=== PATIENT | male | born 1950 | race Caucasian/White ===

== ENCOUNTER 2017-02-17 10:48 | Observation (INO) | payer MEDICARE, MEDICAID, SELFPAY | END 2017-02-19 09:50 | disposition home or self-care (01) | PROVIDERS: Admitting Provider Family Medicine; Visit Provider Family Medicine | DX: E86.0 Dehydration (principal); J44.9 Chronic obstructive pulmonary disease, unspecified; E87.1 Hypo-osmolality and hyponatremia; I10 Essential (primary) hypertension; K29.70 Gastritis, unspecified, without bleeding | CPT/HCPCS: 36415; 71020; 80048; 80053; 82962; 83605; 85025; 87040; G0378; J2405 ==

== ENCOUNTER 2017-02-25 03:32 | Emergency (ER) | payer MEDICARE, MEDICAID, SELFPAY | END 2017-02-25 05:58 | disposition home or self-care (01) | PROVIDERS: Emergency Provider Emergency Medicine; Visit Provider Emergency Medicine | DX: K57.92 Diverticulitis of intestine, part unspecified, without perforation or abscess without bleeding (principal); M54.5 Low back pain | CPT/HCPCS: 74176; 80053; 81001; 82150; 83690; 85025; 96365; 96367; 96375; 99284; J1956; J2405 ==

== ENCOUNTER 2017-03-21 08:16 | Day surgery (SDC) | payer MEDICARE, MEDICAID, SELFPAY ==
[2017-03-20 11:14] VITALS: BMI 33.2
[2017-03-21] VITALS (7 sets, daily range): BP systolic 107–130; BP diastolic 64–82; PULSE 82–89; RESP 16–20; TEMP 36.2–36.6; O2SAT 94–98
--- NOTE | 2017-03-21 09:11 | HMH.ANESCL ---
[facility] [place] Anesthesia Checklist - Patient Identification Patient Identification: Arm Band, Verbal (Name & ) - Structural Data Admitted From: Home Planned Operative Procedure/s: neuro stimulator Consent for Planned Operative Procedure(s) Verified: Yes Verified Documents: Surgical Consent - NPO Status Verified Time NPO: 00:00 - Additional verifications Patient : No Anesthesia Reactions: No Hx Blood Transfusions: No Blood Transfusion Reaction: No Cephalosporin Allergy: No Previous Colonoscopy: No - Cardiovascular Assessment Heart Sounds: S1 & S2 Pulse Strength: Strong Pulse Rhythm: Regular Peripheral Edema: No - Airway Assessment C-Spine Mobility Assessed: Yes TMJ Mobility Assessed: Yes Dentition: Good Dentition - Neurological Assessment Level of Consciousness: Awake, Alert, Appropriate Hx Seizures: No Numbness or tingling in extremities: No - Genitourinary Assessment Urinary Incontinence: None - Anesthesia Plan Anesthesia Risk discussed: Yes Anesthesia Plan: Verified ASA Class: II Anesthesia Type: MAC [facility] [place] Anesthesia HX I have reviewed the patient's past medical history: Yes Medical History: Reports:: Chronic Obstructive Pulmonary Disease (COPD), Hypertension Denies:: Cancer, Diabetes Mellitus Type 1, Diabetes Mellitus Type 2, MRSA, Seizures Other Medical History: Denies: Blood Transfusion Reaction Comment: back leg and foot pain Laterality Cases: Right: Arthroscopy Knee, Bilateral: Carpal Tunnel Release Amputation: No Fractures: Yes (back) Comment: discectomy, trial spinal stim. *Family Hx:: Unable to obtain, Cancer, Hypertension
--- NOTE | 2017-03-21 09:14 | P.PN_ITS ---
[facility] Anesthesia Checklist - Patient Identification Patient Identification: Arm Band, Verbal (Name & ) - Structural Data Admitted From: Home Planned Operative Procedure/s: neuro stimulator Consent for Planned Operative Procedure(s) Verified: Yes Verified Documents: Surgical Consent - NPO Status Verified Time NPO: 00:00 - Additional verifications Patient : No Anesthesia Reactions: No Hx Blood Transfusions: No Blood Transfusion Reaction: No Cephalosporin Allergy: No Previous Colonoscopy: No - Cardiovascular Assessment Heart Sounds: S1 & S2 Pulse Strength: Strong Pulse Rhythm: Regular Peripheral Edema: No - Airway Assessment C-Spine Mobility Assessed: Yes TMJ Mobility Assessed: Yes Dentition: Good Dentition - Neurological Assessment Level of Consciousness: Awake, Alert, Appropriate Hx Seizures: No Numbness or tingling in extremities: No - Genitourinary Assessment Urinary Incontinence: None - Anesthesia Plan Anesthesia Risk discussed: Yes Anesthesia Plan: Verified ASA Class: II Anesthesia Type: MAC [facility] Anesthesia HX I have reviewed the patient's past medical history: Yes Medical History: Reports:: Chronic Obstructive Pulmonary Disease (COPD), Hypertension Denies:: Cancer, Diabetes Mellitus Type 1, Diabetes Mellitus Type 2, MRSA, Seizures Other Medical History: Denies: Blood Transfusion Reaction Comment: back leg and foot pain Laterality Cases: Right: Arthroscopy Knee, Bilateral: Carpal Tunnel Release Amputation: No Fractures: Yes (back) Comment: discectomy, trial spinal stim. *Family Hx:: Unable to obtain, Cancer, Hypertension
--- NOTE | 2017-03-21 12:07 | HMH.OPNOTE ---
Date of procedure: 03/21/17 Pre-op Diagnosis:: Degenerative disc disease of lumbar spine with lumbar radiculopathy symptoms and postlaminectomy syndrome Post-op diagnosis:: same Procedure performed:: Placement spinal cord stimulator with 2 epidural leads for permanent spinal cord stimulator. Surgeon:: Silverio Hyman MD RAW SILK GRADER:: Oral Pinon Anesthesia: MAC Estimated blood loss (mL): 5 Clinical Note:: This patient is a pleasant 66-year-old white male who we have been treating for postlaminectomy syndrome lumbar spine with degenerative disc disease of lumbar spine with lumbar radiculopathy symptoms. He had a successful spinal cord stimulator trial with 80% relief of pain symptoms. He is failed all previous conservative therapy including surgery, physical therapy, injections and oral medications. Most of his pain is in his back going down both legs. He presents for permanent placement spinal cord stimulator today. I have explained the risks and benefits and answered all questions. Operative findings:: None. Patient has [employer] system Operative note:: Informed consent was obtained and the risks and benefits of the procedure was explained to the patient. Patient was placed prone on the procedure table. He was prepped and draped in sterile fashion. C-arm fluoroscopy was used to view the lumbar spine. The skin and subcu dense tissues overlying the L3-L4 and L4-L5 interspace were nested using lidocaine. I made an incision in the midline and dissected down to the lumbar paraspinous fascia. I placed a 17-gauge curved tip epidural needle and advanced into the L3-L4 interspace. Using [id number] to air and guidance needle was advanced into the epidural space. After confirmation of needle placement in the epidural space stimulating lead was inserted and advanced very easily to the T10-T11 vertebral bodies. I placed a second needle advancing into the L2-L3 space. Using [id number] to air and fluoroscopic guidance needle was advanced into the epidural space. After confirmation of needle placement in the epidural space stimulating lead was inserted and secondly was advanced very easily adjacent to the first lead at the T10-T11 vertebral bodies. These leads were tested. Patient did feel good stimulation in his back and down both legs. The leads were secured to the lumbar paraspinous fascia with an anchor device in 2-0 Prolene. I tunneled leads from the back to the generator pocket created by Dr. Mcdonald. I attached the leads to the generator. The generator was placed in the generator pocket. Both incisions were irrigated with bacitracin solution. All contacts were found to be in place. Both incisions were then closed with 2-0 Vicryl followed by 4-0 nylon. The patient placed in an abdominal binder can recovery in stable condition. The patient tolerated the procedure well with no complications. Patient was given postop antibiotics of Bactrim double strength twice a day for 7 days. Pathology: none sent Condition: stable Disposition: PACU (We will follow-up with this patient in 2 weeks.) Complications:: None Plan - Patient/Caregiver Discharge Instructions Activity: As tolerated Diet: Regular Additional Instructions: Patient may shower on Sunday. We will follow up with this patient in 2 weeks to reinterrogate the stimulator and make adjustments if needed. This is a [employer] system. - Follow Up Plan
--- NOTE | 2017-03-21 12:11 | P.OP_ITS ---
Date of procedure: 03/21/17 Pre-op Diagnosis:: Degenerative disc disease of lumbar spine with lumbar radiculopathy symptoms and postlaminectomy syndrome Post-op diagnosis:: same Procedure performed:: Placement spinal cord stimulator with 2 epidural leads for permanent spinal cord stimulator. Surgeon:: Silverio Hyman MD INPATIENT PHARMACIST:: Oral Pinon Anesthesia: MAC Estimated blood loss (mL): 5 Clinical Note:: This patient is a pleasant 66-year-old white male who we have been treating for postlaminectomy syndrome lumbar spine with degenerative disc disease of lumbar spine with lumbar radiculopathy symptoms. He had a successful spinal cord stimulator trial with 80% relief of pain symptoms. He is failed all previous conservative therapy including surgery, physical therapy, injections and oral medications. Most of his pain is in his back going down both legs. He presents for permanent placement spinal cord stimulator today. I have explained the risks and benefits and answered all questions. Operative findings:: None. Patient has [employer] system Operative note:: Informed consent was obtained and the risks and benefits of the procedure was explained to the patient. Patient was placed prone on the procedure table. He was prepped and draped in sterile fashion. C-arm fluoroscopy was used to view the lumbar spine. The skin and subcu dense tissues overlying the L3-L4 and L4- L5 interspace were nested using lidocaine. I made an incision in the midline and dissected down to the lumbar paraspinous fascia. I placed a 17-gauge curved tip epidural needle and advanced into the L3-L4 interspace. Using loss- of-resistance to air and guidance needle was advanced into the epidural space. After confirmation of needle placement in the epidural space stimulating lead was inserted and advanced very easily to the T10-T11 vertebral bodies. I placed a second needle advancing into the L2-L3 space. Using loss-of- resistance to air and fluoroscopic guidance needle was advanced into the epidural space. After confirmation of needle placement in the epidural space stimulating lead was inserted and secondly was advanced very easily adjacent to the first lead at the T10-T11 vertebral bodies. These leads were tested. Patient did feel good stimulation in his back and down both legs. The leads were secured to the lumbar paraspinous fascia with an anchor device in 2-0 Prolene. I tunneled leads from the back to the generator pocket created by Dr. Mcdonald. I attached the leads to the generator. The generator was placed in the generator pocket. Both incisions were irrigated with bacitracin solution. All contacts were found to be in place. Both incisions were then closed with 2-0 Vicryl followed by 4-0 nylon. The patient placed in an abdominal binder can recovery in stable condition. The patient tolerated the procedure well with no complications. Patient was given postop antibiotics of Bactrim double strength twice a day for 7 days. Pathology: none sent Condition: stable Disposition: PACU (We will follow-up with this patient in 2 weeks.) Complications:: None Plan - Patient/Caregiver Discharge Instructions Activity: As tolerated Diet: Regular Additional Instructions: Patient may shower on Sunday. We will follow up with this patient in 2 weeks to reinterrogate the stimulator and make adjustments if needed. This is a [employer] system. - Follow Up Plan
--- NOTE | 2017-03-21 13:16 | HMH.OPNOTE ---
Date of procedure: 03/21/17 Pre-op Diagnosis:: Post laminectomy syndrome with lumbar radiculopathy, degenerative disc disease of the lumbar spine Post-op diagnosis:: same Procedure performed:: Placement of epidural stimulator generator Surgeon:: Lamont Mcdonald MD Anesthesia: LMA Estimated blood loss (mL): 3 Clinical Note:: Not applicable Operative findings:: None Operative note:: Once adequate IV sedation was obtained via anesthesia and local anesthesia less than 1% Xylocaine with epinephrine a paraspinal incision was made by through which 2 epidural leads passed into the epidural space to the area desired by . They were then fixed the paraspinal fascia with fixation devices and 2-0 Prolene sutures.. A right flank incision was made under which made a pocket for part of the generator. The leads were passed from the paraspinal incision to the pocket incision tunneling device. Leads fixed to the generator which was placed in the pocket. Monitoring by the company revealed excellent functioning of the system. The subcutaneous tissues closed with 2-0 Vicryl sutures. Skin closed with stitches of 4-0 nylon skin glue sterile dressing and a binder applied to the wound. The patient tolerated procedure well was taken to recovery room in stable condition. Upon recovery the patient will be discharged home with follow-up in 2 weeks for suture removal. Will be contacted for redness pain drainage or any other concerns. Bactrim DS twice daily ?1 week. Pathology: none sent Condition: stable Disposition: PACU Specimens:: None Complications:: None
== END 2017-03-21 14:00 | disposition home or self-care (01) ==
LOC: OR 08:18
PROVIDERS: PCP Family Medicine; Visit Provider Anesthesiology
DX: M51.16 Intervertebral disc disorders with radiculopathy, lumbar region (principal); M96.1 Postlaminectomy syndrome, not elsewhere classified; Z45.49 Encounter for adjustment and management of other implanted nervous system device
CPT/HCPCS: 63650; 63685; 96374; C1778; C1820; J3370

== ENCOUNTER → 2017-04-02 14:34 | Outpatient (POV) | payer MEDICARE, MEDICAID, SELFPAY ==
[2017-04-02 15:01] VITALS: BP 140/80; PULSE 121; RESP 22; TEMP 36.3; O2SAT 95; BMI 33.2
--- NOTE | 2017-04-02 15:36 | P.CONS_ITS ---
[facility] Pain Management SOAP Note Subjective:: This patient is a pleasant 66-year-old white male who we are treating for postlaminectomy syndrome lumbar spine with degenerative disc disease of lumbar spine and lumbar radiculopathy symptoms. He is status post permanent placement of spinal cord stimulator with 2 epidural leads. He has a [employer] system. He did get reprogramming today. He is doing very well with continued 80-90% relief of his pain symptoms. He went more stimulation towards the left so that is why he was reprogrammed today. Overall he is doing very well. Objective:: Alert and oriented ?3 in no acute distress. Patient has an antalgic gait. His incisions are clean dry and intact and healing very well. Motor strength of the lower extremity 5/5. There is no gross sensory deficit. Assessment:: Degenerative disc disease of lumbar spine with lumbar radiculopathy symptoms and postlaminectomy syndrome. Plan:: We will follow-up with him in 1 month. We will reevaluate his symptoms at that time.
== END ==
PROVIDERS: PCP Family Medicine; Visit Provider Anesthesiology
DX: M51.16 Intervertebral disc disorders with radiculopathy, lumbar region (principal)
CPT/HCPCS: 99212

== ENCOUNTER → 2017-05-07 09:02 | Outpatient (POV) | payer MEDICARE, MEDICAID, SELFPAY ==
[2017-05-07 09:13] VITALS: BP 111/72; PULSE 52; RESP 24; O2SAT 97; BMI 32.0
--- NOTE | 2017-05-07 10:15 | HMH.PAINSOAP ---
[facility] Pain Management SOAP Note Subjective:: Patient is a pleasant 66-year-old white male who presents today for stimulator adjustment. Patient is doing very well after his implant of his [employer] stimulator. Patient states he is having 80% pain relief in both of his legs. He states that his feet do still bother him however he has just been readjusted. Patient does have restless leg syndrome which he takes Lyrica for. Patient states that it works well for him. ROS General: no recent weight change, no fever, no sleep disturbances Respiratory: no cough, no shortness of air, no recurring pulmonary infections Cardiovascular/Peripheral Vascular: No chest pain, No palpitations, no edema, no shortness of breath. Gastrointestinal: no incontinence, normal bowel movements reported Genitourinary: no incontinence Musculoskeletal: Bilateral leg and foot pain Psychiatric: normal mood/ affect, Neurological: [denies weakness in extremities], [denies balance issues] Objective:: Physical Exam General: Alert and oriented x3, no acute distress, pleasant and cooperative, [on room air] Lungs: Resps E/U, Symmetrical chest expansion, Eyes: PERRL Musculoskeletal: Flexion and extension of lumbar spine somewhat guarded secondary to pain, deep tendon reflexes normal, strength in upper and lower extremities [5/5], slightly antalgic gait noted Neurological: speech clear, mental health aides teacher equal, no gross sensory deficits Assessment:: Degenerative disc disease of the lumbar spine with lumbar radiculopathy symptoms, postlaminectomy syndrome Plan:: We will follow-up with this patient in 4 months. Patient is instructed to call us if he has any issues with his stimulator or needs reprograming. This note was dictated using voice recognition software and may contain errors or omissions
--- NOTE | 2017-05-07 10:18 | P.CONS_ITS ---
[facility] Pain Management SOAP Note Subjective:: Patient is a pleasant 66-year-old white male who presents today for stimulator adjustment. Patient is doing very well after his implant of his [employer] stimulator. Patient states he is having 80% pain relief in both of his legs. He states that his feet do still bother him however he has just been readjusted. Patient does have restless leg syndrome which he takes Lyrica for. Patient states that it works well for him. ROS General: no recent weight change, no fever, no sleep disturbances Respiratory: no cough, no shortness of air, no recurring pulmonary infections Cardiovascular/Peripheral Vascular: No chest pain, No palpitations, no edema, no shortness of breath. Gastrointestinal: no incontinence, normal bowel movements reported Genitourinary: no incontinence Musculoskeletal: Bilateral leg and foot pain Psychiatric: normal mood/ affect, Neurological: [denies weakness in extremities], [denies balance issues] Objective:: Physical Exam General: Alert and oriented x3, no acute distress, pleasant and cooperative, [ on room air] Lungs: Resps E/U, Symmetrical chest expansion, Eyes: PERRL Musculoskeletal: Flexion and extension of lumbar spine somewhat guarded secondary to pain, deep tendon reflexes normal, strength in upper and lower extremities [5/5], slightly antalgic gait noted Neurological: speech clear, web search evaluator equal, no gross sensory deficits Assessment:: Degenerative disc disease of the lumbar spine with lumbar radiculopathy symptoms , postlaminectomy syndrome Plan:: We will follow-up with this patient in 4 months. Patient is instructed to call us if he has any issues with his stimulator or needs reprograming. This note was dictated using voice recognition software and may contain errors or omissions
== END ==
PROVIDERS: PCP Family Medicine; Visit Provider Clinical Nurse Specialist Family Health
DX: M54.16 Radiculopathy, lumbar region (principal)
CPT/HCPCS: 99212

== ENCOUNTER → 2017-08-20 16:29 | Outpatient (CLI) | payer MEDICARE, MEDICAID, SELFPAY ==
--- NOTE | 2017-08-20 16:59 | CT_ITS ---
CT abdomen pelvis wo con CLINICAL INDICATION: ITS.REASON: LLQ ABDOMINAL PAIN; LEUKOCYTOSIS; MICROSCOPIC HEMATURIA ORDERING PHYSICIAN: Leo Ravi MD PATIENT AGE: 66 years COMPARISON: 02/25/2017 TECHNIQUE: Axial images obtained with sagittal and coronal reformats. All CT scans at the facility use one or more dose reduction, viz: automated exposure control; ma/kV adjustment per patient size (including targeted exams where dose is matched to indication; i.e. head); or iterative reconstruction technique. PROCEDURE: Oral Contrast: None IV Contrast: None . FINDINGS: Atelectatic or fibrotic changes are present in the lung bases. There are coronary artery calcifications noted. No focal liver lesion is evident. There is coarse calcification of the fundus and the upper aspect of the gallbladder consistent with porcelain gallbladder. Small hiatal hernia. The spleen and adrenal glands and pancreas have an unremarkable unenhanced CT appearance. No renal or ureteral calculus or hydronephrosis is evident. Mild prominence of the left renal pelvis versus parapelvic renal cyst similar to the previous exam. There is mild stranding of the perinephric renal fat bilaterally which is nonspecific. Unremarkable appendix. Diverticulosis of the transverse, descending, and sigmoid colon. There is focal thickening of the distal descending colon in the left lower quadrant with moderate stranding of the pericolic fat system with diverticulitis. There is a hyperdense diverticulum at this region felt to represent the inflamed diverticulum. No abscess or focal perforation evident. The prostate is slightly prominent with some central calcification. There are degenerative changes in the lumbar spine and hips. There has been prior vertebroplasty at T12. IMPRESSION: 1. Colonic diverticulosis with acute diverticulitis of the distal descending colon. No evidence of abscess or perforation. 2. Porcelain gallbladder.
== END ==
PROVIDERS: PCP Family Medicine; Visit Provider Family Medicine
DX: R10.32 Left lower quadrant pain (principal); D72.829 Elevated white blood cell count, unspecified; R31.29 Other microscopic hematuria
CPT/HCPCS: 74176

== ENCOUNTER → 2017-09-11 10:24 | Outpatient (POV) | payer MEDICARE, MEDICAID, SELFPAY ==
[2017-09-11 10:32] VITALS: BP 108/68; PULSE 85; RESP 18; O2SAT 98; BMI 30.8
--- NOTE | 2017-09-11 10:41 | HMH.PAINSOAP ---
[facility] Pain Management SOAP Note Subjective:: Patient is a pleasant 66-year-old white male who presents today for follow-up. Patient has a [employer] stimulator. Patient rates that he is having good pain relief in both of his legs however he is not getting any pain relief in his feet. Patient states that he has been reprogrammed by the rep 5 times and has not been able to get adequate relief. Patient's been trying Lyrica and gabapentin without any relief as well. Patient states his feet are tingling and burning at all times that it is worse at night. Patient states that during his stimulator trial he had great relief of his foot pain. Patient was told by the [facility] he should have an x-ray to check lead placement. Patient rates his pain as 7 out of 10 in his feet today. ROS General: no recent weight change, no fever, no sleep disturbances Respiratory: no cough, no shortness of air, no recurring pulmonary infections Cardiovascular/Peripheral Vascular: No chest pain, No palpitations, no edema, no shortness of breath. Gastrointestinal: no incontinence, normal bowel movements reported Genitourinary: no incontinence Musculoskeletal: Foot pain Psychiatric: normal mood/ affect Neurological: [denies weakness in extremities], [denies balance issues] Objective:: Physical Exam General: Alert and oriented x3, no acute distress, pleasant and cooperative, [on room air] Lungs: Resps E/U, Symmetrical chest expansion, Eyes: PERRL Musculoskeletal: deep tendon reflexes normal, strength in upper and lower extremities [5/5], slightly antalgic gait noted Neurological: speech clear, hydrogen operator equal, no gross sensory deficits Assessment:: Degenerative disc disease of the lumbar spine with lumbar radiculopathy symptoms, postlaminectomy syndrome Plan:: We will get an x-ray of the thoracic spine to check lead placement. We will call in a compounding cream for his foot pain. We will follow-up with him at the end of this week. This note was dictated using voice recognition software and may contain errors or omissions
--- NOTE | 2017-09-11 10:45 | XR_ITS ---
EXAM: XR thoracic spine 3V HISTORY: ITS.REASON: VERIFY STIM LEAD PLACEMENT,WORSENING BACK PAIN Comparison: None FINDINGS: Epidural stimulator leads are present with the tip at the T10-T11 level. Wedge compression changes are present at T12 status post prior vertebroplasty. Multilevel degenerative changes are present in the thoracic spine with osteophytosis anteriorly. No acute fracture or dislocation. IMPRESSION: Epidural stimulator leads at the T10-T11 level No change prior vertebroplasty at T12 with stable compression changes at T12
--- NOTE | 2017-09-11 10:46 | P.CONS_ITS ---
[facility] Pain Management SOAP Note Subjective:: Patient is a pleasant 66-year-old white male who presents today for follow-up. Patient has a [employer] stimulator. Patient rates that he is having good pain relief in both of his legs however he is not getting any pain relief in his feet. Patient states that he has been reprogrammed by the rep 5 times and has not been able to get adequate relief. Patient's been trying Lyrica and gabapentin without any relief as well. Patient states his feet are tingling and burning at all times that it is worse at night. Patient states that during his stimulator trial he had great relief of his foot pain. Patient was told by the [facility] he should have an x-ray to check lead placement. Patient rates his pain as 7 out of 10 in his feet today. ROS General: no recent weight change, no fever, no sleep disturbances Respiratory: no cough, no shortness of air, no recurring pulmonary infections Cardiovascular/Peripheral Vascular: No chest pain, No palpitations, no edema, no shortness of breath. Gastrointestinal: no incontinence, normal bowel movements reported Genitourinary: no incontinence Musculoskeletal: Foot pain Psychiatric: normal mood/ affect Neurological: [denies weakness in extremities], [denies balance issues] Objective:: Physical Exam General: Alert and oriented x3, no acute distress, pleasant and cooperative, [ on room air] Lungs: Resps E/U, Symmetrical chest expansion, Eyes: PERRL Musculoskeletal: deep tendon reflexes normal, strength in upper and lower extremities [5/5], slightly antalgic gait noted Neurological: speech clear, kiln fireman equal, no gross sensory deficits Assessment:: Degenerative disc disease of the lumbar spine with lumbar radiculopathy symptoms , postlaminectomy syndrome Plan:: We will get an x-ray of the thoracic spine to check lead placement. We will call in a compounding cream for his foot pain. We will follow-up with him at the end of this week. This note was dictated using voice recognition software and may contain errors or omissions
== END ==
PROVIDERS: PCP Family Medicine; Visit Provider Clinical Nurse Specialist Family Health
DX: M54.16 Radiculopathy, lumbar region (principal)
CPT/HCPCS: 72072; 99212

== ENCOUNTER → 2017-09-14 14:19 | Outpatient (POV) | payer MEDICARE, MEDICAID, SELFPAY ==
[2017-09-14 14:57] VITALS: BP 137/75; PULSE 68; RESP 18; TEMP 36.8; O2SAT 97; BMI 30.8
--- NOTE | 2017-09-14 15:21 | HMH.PAINSOAP ---
[facility] Pain Management SOAP Note Subjective:: This patient is a pleasant 66-year-old white male who we are seeing for low back pain with bilateral leg pain and bilateral foot pain. He does have a [employer] spinal cord stimulator in place. He has been prepped several times by the business services representative with good relief of his back and leg pain however he does not have much relief of his foot pain. He does get significant burning in both feet. He is being reprogrammed today to see if this will get down to his feet to give him some benefit. He will be given several programs today. Other than this he is doing very well. Objective:: Alert and oriented x3 no acute distress. Patient does have an antalgic gait. Motor strength of the lower extremities is 5/5. There is no gross sensory deficit. Assessment:: Degenerative disc disease of lumbar spine with lumbar radiculopathy symptoms. Plan:: We did review his x-ray and the leads seem to be in same position. We will follow-up with him in 1 week to see if he gets any benefit from the reprogramming. If he does not get any benefit he may be a candidate for dorsal root ganglion stimulation of L5 bilaterally to capture bilateral foot pain.
== END ==
PROVIDERS: PCP Family Medicine; Visit Provider Anesthesiology
DX: M54.16 Radiculopathy, lumbar region (principal)
CPT/HCPCS: 99212

== ENCOUNTER → 2017-09-24 08:49 | Outpatient (POV) | payer MEDICARE, MEDICAID, SELFPAY ==
[2017-09-24 09:20] VITALS: BP 122/86; PULSE 72; RESP 18; O2SAT 98; BMI 32.0
--- NOTE | 2017-09-24 09:53 | HMH.PAINSOAP ---
[facility] Pain Management SOAP Note Subjective:: Patient is a pleasant 66-year-old white male who presents today for follow-up. Patient has a [employer] spinal cord stimulator in place and this takes care of by his bilateral leg pain. Patient has been reprogrammed several times with no success in getting sensation to his feet. At his last visit Dr. Hyman and him had reviewed his x-ray to ensure the leads were in the right place. They also discussed potential DRG stimulation. Patient would like to move forward with this. Patient does not tolerate medications well. Patient's tried and failed other therapies including stretching, anti-inflammatories, medications. Patient describes the pain as burning and numbness from his ankle down bilaterally ROS General: no recent weight change, no fever, no sleep disturbances Respiratory: no cough, no shortness of air, no recurring pulmonary infections Cardiovascular/Peripheral Vascular: No chest pain, No palpitations, no edema, no shortness of breath. Gastrointestinal: no incontinence, normal bowel movements reported Genitourinary: no incontinence Musculoskeletal: Bilateral foot pain Psychiatric: normal mood/ affect Neurological: [denies weakness in extremities], [denies balance issues] Objective:: Physical Exam General: Alert and oriented x3, no acute distress, pleasant and cooperative, [on room air] Lungs: Resps E/U, Symmetrical chest expansion, Eyes: PERRL Musculoskeletal: Range of motion bilateral feet somewhat guarded secondary to pain, deep tendon reflexes normal, strength in upper and lower extremities [5/5], [abnormal gait noted] Neurological: speech clear, tamale maker equal, no gross sensory deficits Assessment:: Degenerative disc disease of the lumbar spine with lumbar radiculopathy symptoms and neuropathy Plan:: We will schedule a DRG bilateral placement at L4-L5. I believe that this would be beneficial given the patient's intolerance to medication. Patient's tried and failed multiple therapies. Patient does have good relief with his [employer] stimulator of bilateral leg pain. This note was dictated using voice recognition software and may contain errors or omissions
--- NOTE | 2017-09-24 09:56 | P.CONS_ITS ---
[facility] Pain Management SOAP Note Subjective:: Patient is a pleasant 66-year-old white male who presents today for follow-up. Patient has a [employer] spinal cord stimulator in place and this takes care of by his bilateral leg pain. Patient has been reprogrammed several times with no success in getting sensation to his feet. At his last visit Dr. Hyman and him had reviewed his x-ray to ensure the leads were in the right place. They also discussed potential DRG stimulation. Patient would like to move forward with this. Patient does not tolerate medications well. Patient's tried and failed other therapies including stretching, anti-inflammatories, medications. Patient describes the pain as burning and numbness from his ankle down bilaterally ROS General: no recent weight change, no fever, no sleep disturbances Respiratory: no cough, no shortness of air, no recurring pulmonary infections Cardiovascular/Peripheral Vascular: No chest pain, No palpitations, no edema, no shortness of breath. Gastrointestinal: no incontinence, normal bowel movements reported Genitourinary: no incontinence Musculoskeletal: Bilateral foot pain Psychiatric: normal mood/ affect Neurological: [denies weakness in extremities], [denies balance issues] Objective:: Physical Exam General: Alert and oriented x3, no acute distress, pleasant and cooperative, [ on room air] Lungs: Resps E/U, Symmetrical chest expansion, Eyes: PERRL Musculoskeletal: Range of motion bilateral feet somewhat guarded secondary to pain, deep tendon reflexes normal, strength in upper and lower extremities [5/5] , [abnormal gait noted] Neurological: speech clear, carton waxing machine operator equal, no gross sensory deficits Assessment:: Degenerative disc disease of the lumbar spine with lumbar radiculopathy symptoms and neuropathy Plan:: We will schedule a DRG bilateral placement at L4-L5. I believe that this would be beneficial given the patient's intolerance to medication. Patient's tried and failed multiple therapies. Patient does have good relief with his [employer] stimulator of bilateral leg pain. This note was dictated using voice recognition software and may contain errors or omissions
== END ==
PROVIDERS: PCP Family Medicine; Visit Provider Clinical Nurse Specialist Family Health
DX: M54.16 Radiculopathy, lumbar region (principal)
CPT/HCPCS: 99212

== ENCOUNTER → 2017-12-04 08:43 | Outpatient (POV) | payer MEDICARE, MEDICAID, SELFPAY ==
[2017-12-04 09:06] VITALS: BP 104/77; PULSE 81; RESP 18; O2SAT 94; BMI 30.8
--- NOTE | 2017-12-04 09:27 | HMH.PAINSOAP ---
[facility] Pain Management SOAP Note Subjective:: Patient is a pleasant 67-year-old white male who presents today for follow-up after implantation of DRG. Patient was reprogramed and doing well. Rates his pain a 5 out of 10 today. Patient's incisions look healed and are dry and intact. No sign symptoms of infection. Patient is still learning to use his sas programmer. ROS General: no recent weight change, no fever, no sleep disturbances Respiratory: no cough, no shortness of air, no recurring pulmonary infections Cardiovascular/Peripheral Vascular: No chest pain, No palpitations, no edema, no shortness of breath. Gastrointestinal: no incontinence, normal bowel movements reported Genitourinary: no incontinence Musculoskeletal: Foot pain Psychiatric: normal mood/ affect Neurological: [denies weakness in extremities], [denies balance issues] Objective:: Physical Exam General: Alert and oriented x3, no acute distress, pleasant and cooperative, [on room air] Lungs: Resps E/U, Symmetrical chest expansion, Eyes: PERRL Musculoskeletal: Flexion and extension of lumbar spine somewhat guarded secondary to pain, deep tendon reflexes normal, strength in upper and lower extremities [5/5], [abnormal gait noted] Neurological: speech clear, idea worker equal, no gross sensory deficits Assessment:: Degenerative disease lumbar spine with postlaminectomy syndrome and complex regional pain syndrome with bilateral foot pain Plan:: We will see the patient back in 3 weeks. Patient's been instructed to contact us if he has any issues prior to his next appointment. This note was dictated using voice recognition software and may contain errors or omissions
--- NOTE | 2017-12-04 09:30 | P.CONS_ITS ---
[facility] Pain Management SOAP Note Subjective:: Patient is a pleasant 67-year-old white male who presents today for follow-up after implantation of DRG. Patient was reprogramed and doing well. Rates his pain a 5 out of 10 today. Patient's incisions look healed and are dry and intact. No sign symptoms of infection. Patient is still learning to use his programmer or analyst. ROS General: no recent weight change, no fever, no sleep disturbances Respiratory: no cough, no shortness of air, no recurring pulmonary infections Cardiovascular/Peripheral Vascular: No chest pain, No palpitations, no edema, no shortness of breath. Gastrointestinal: no incontinence, normal bowel movements reported Genitourinary: no incontinence Musculoskeletal: Foot pain Psychiatric: normal mood/ affect Neurological: [denies weakness in extremities], [denies balance issues] Objective:: Physical Exam General: Alert and oriented x3, no acute distress, pleasant and cooperative, [on room air] Lungs: Resps E/U, Symmetrical chest expansion, Eyes: PERRL Musculoskeletal: Flexion and extension of lumbar spine somewhat guarded seconda ry to pain, deep tendon reflexes normal, strength in upper and lower extremities [5/5], [abnormal gait noted] Neurological: speech clear, senior electrical designer equal, no gross sensory deficits Assessment:: Degenerative disease lumbar spine with postlaminectomy syndrome and complex regional pain syndrome with bilateral foot pain Plan:: We will see the patient back in 3 weeks. Patient's been instructed to contact us if he has any issues prior to his next appointment. This note was dictated using voice recognition software and may contain errors or omissions
== END ==
PROVIDERS: PCP Family Medicine; Visit Provider Clinical Nurse Specialist Family Health
DX: M51.36 Other intervertebral disc degeneration, lumbar region (principal); M96.1 Postlaminectomy syndrome, not elsewhere classified
CPT/HCPCS: 99213

== ENCOUNTER → 2017-12-24 10:58 | Outpatient (POV) | payer MEDICARE, MEDICAID, SELFPAY ==
--- NOTE | 2017-12-24 11:32 | P.CONS_ITS ---
[facility] Pain Management SOAP Note Subjective:: Is an extremely pleasant 67-year-old white male who presents today for follow- up. Patient has both a spinal cord stimulator and a DRG stimulator. Patient states that he is still having a lot of pain in his feet at nighttime. He rates his pain a 3 out of 10 today. Patient states that at night his feet begin to burn. Patient has been on Lyrica however he is only been taking it at nighttime. I encouraged him to take it 3 times a day as prescribed. Patient is going to try this. ROS General: no recent weight change, no fever, no sleep disturbances Respiratory: no cough, no shortness of air, no recurring pulmonary infections Cardiovascular/Peripheral Vascular: No chest pain, No palpitations, no edema, no shortness of breath. Gastrointestinal: no incontinence, normal bowel movements reported Genitourinary: no incontinence Musculoskeletal: Foot pain Psychiatric: normal mood/ affect Neurological: [denies weakness in extremities], [denies balance issues] Objective:: Physical Exam General: Alert and oriented x3, no acute distress, pleasant and cooperative, [on room air] Lungs: Resps E/U, Symmetrical chest expansion, Eyes: PERRL Musculoskeletal: Flexion and extension of lumbar spine somewhat guarded secondary to pain, deep tendon reflexes normal, strength in upper and lower extremities [5/5], slightly antalgic gait noted Neurological: speech clear, 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 We may determine that he needs a lumbar epidural in the future. I will follow-up with him after his reprogramming and that he has been on his Lyrica 3 times a day for several weeks. Patient's been instructed to call the office if he has any issues prior to his next appointment. This note was dictated using voice recognition software and may contain errors or omissions
[2017-12-24 11:37] VITALS: BP 115/70; PULSE 67; RESP 18; O2SAT 98; BMI 30.8
== END ==
PROVIDERS: PCP Family Medicine; Visit Provider Clinical Nurse Specialist Family Health
DX: M96.1 Postlaminectomy syndrome, not elsewhere classified (principal); M51.36 Other intervertebral disc degeneration, lumbar region
CPT/HCPCS: 99213

== ENCOUNTER → 2018-06-17 14:39 | Outpatient (POV) | payer MEDICARE, MEDICAID, SELFPAY ==
--- NOTE | 2018-06-17 | XR_ITS ---
EXAM: XR lumbar spine 2-3V HISTORY: Neurostimulator placement ORDERING PHYSICIAN: Jackie Denney PATIENT AGE: 67 years COMPARISON: None FINDINGS: AP and lateral views of the lumbar spine demonstrates an epidural neurostimulator device. There are 2 leads.. One lead enters the epidural space at the L2-L3 level and one at the L1-L2 level. The superior tip of the leads is at the T10-T11 level Wedge compression changes with prior kyphoplasty noted at T12. An additional neurostimulator device is now present with 2 leads extending to the sacral area at the S2-S3 level. These lesions do not extend to the presacral but overlying the S2 vertebral body. There is multilevel degenerative disc disease from T10 to S1 with mild chronic wedging of T12-L1 and L2. Prominent anterior osteophytes are present in the lumbar spine as well. Facet arthritic changes are present at L4-L5 and S1. There is vascular calcification also noted. IMPRESSION: 1. Interval insertion of sacral neurostimulator device at the S2 level. 2. Lower thoracic spine epidural device also once again noted.
[2018-06-17 15:04] VITALS: BP 117/73; PULSE 73; RESP 18; O2SAT 98; BMI 32.0
--- NOTE | 2018-06-18 08:54 | HMH.PAINSOAP ---
[facility] Pain Management SOAP Note Subjective:: Patient is a pleasant 67-year-old white male who presents today for follow-up. Patient had his a DRG stimulator and he is not getting much relief from it. He rates his pain a 6 out of 10 in his bilateral feet. After placement he was rating his pain a 3 out of 10. Patient and I had a discussion in regards to moving forward. Some x-rays were taken his stimulation is off due to the placement of the DRG leads. We will schedule him to have these repositioned. ROS General: no recent weight change, no fever, no sleep disturbances Respiratory: no cough, no shortness of air, no recurring pulmonary infections Cardiovascular/Peripheral Vascular: No chest pain, No palpitations, no edema, no shortness of breath. Gastrointestinal: no incontinence, normal bowel movements reported Genitourinary: no incontinence Musculoskeletal: Bilateral foot pain Psychiatric: normal mood/ affect Neurological: [denies weakness in extremities], [denies balance issues] Objective:: Physical Exam General: Alert and oriented x3, no acute distress, pleasant and cooperative, [on room air] Lungs: Resps E/U, Symmetrical chest expansion, Eyes: PERRL Musculoskeletal: Flexion and extension of lumbar spine somewhat guarded secondary to pain, deep tendon reflexes normal, strength in upper and lower extremities [5/5], [abnormal gait noted] Neurological: speech clear, roof bolter helper equal, no gross sensory deficits Assessment:: Degenerative disc disease lumbar spine with post laminectomy syndrome and complex regional pain syndrome bilateral feet Plan:: We will get the patient set up for repositioning of the DRG leads. Dr. Hyman has reviewed this note and agrees with this plan of care. This note was dictated using voice recognition software and may contain errors or omissions
--- NOTE | 2018-06-18 08:57 | P.CONS_ITS ---
[facility] Pain Management SOAP Note Subjective:: Patient is a pleasant 67-year-old white male who presents today for follow-up. Patient had his a DRG stimulator and he is not getting much relief from it. He rates his pain a 6 out of 10 in his bilateral feet. After placement he was rating his pain a 3 out of 10. Patient and I had a discussion in regards to moving forward. Some x-rays were taken his stimulation is off due to the placement of the DRG leads. We will schedule him to have these repositioned. ROS General: no recent weight change, no fever, no sleep disturbances Respiratory: no cough, no shortness of air, no recurring pulmonary infections Cardiovascular/Peripheral Vascular: No chest pain, No palpitations, no edema, no shortness of breath. Gastrointestinal: no incontinence, normal bowel movements reported Genitourinary: no incontinence Musculoskeletal: Bilateral foot pain Psychiatric: normal mood/ affect Neurological: [denies weakness in extremities], [denies balance issues] Objective:: Physical Exam General: Alert and oriented x3, no acute distress, pleasant and cooperative, [on room air] Lungs: Resps E/U, Symmetrical chest expansion, Eyes: PERRL Musculoskeletal: Flexion and extension of lumbar spine somewhat guarded secondary to pain, deep tendon reflexes normal, strength in upper and lower extremities [5/5], [abnormal gait noted] Neurological: speech clear, plastics plater equal, no gross sensory deficits Assessment:: Degenerative disc disease lumbar spine with post laminectomy syndrome and complex regional pain syndrome bilateral feet Plan:: We will get the patient set up for repositioning of the DRG leads. Dr. Hyman has reviewed this note and agrees with this plan of care. This note was dictated using voice recognition software and may contain errors or omissions
== END ==
PROVIDERS: PCP Family Medicine; Visit Provider Clinical Nurse Specialist Family Health
DX: M51.36 Other intervertebral disc degeneration, lumbar region (principal); M96.1 Postlaminectomy syndrome, not elsewhere classified; Z96.89 Presence of other specified functional implants
CPT/HCPCS: 72100; 99212

== ENCOUNTER → 2018-08-16 16:17 | Outpatient (CLI) | payer MEDICARE, MEDICAID, SELFPAY ==
[2018-08-16 16:39] LABS: Basophils % 0.5 % (0.1-2.0); Eosinophils # 0.3 K/mm3 (0.0-0.4); Hematocrit 41.4 % (42.0-52.0); Hemoglobin 13.9 g/dL (14.1-18.0); Lymphocytes # 1.6 K/mm3 (0.7-4.5); Lymphocytes % 17.6 % (10-50); Mean Corpuscular HGB Conc 33.6 g/dL (31.8-35.4); Mean Corpuscular Hemoglobin 30.3 pg (27.0-31.2); Mean Corpuscular Volume 90.1 fl (80-94); Mean Platelet Volume 7.5 fl (7.4-10.4); Monocytes # 0.6 K/mm3 (0.1-1.0); Monocytes % 6.6 % (1.7-9.3); Neutrophils # 6.8 K/mm3 (1.8-7.8); Neutrophils % 72.4 % (37.0-80.0); Platelet Count 229 K/mm3 (142-424); Red Cell Distribution Width 13.8 % (11.5-17.5); White Blood Count 9.3 K/mm3 (4.8-10.8)
[2018-08-16 17:25] LABS: Anion Gap 13.5 mEq/L (5-15); Blood Urea Nitrogen 26 mg/dL (7-18); Calcium 8.7 mg/dL (8.5-10.1); Carbon Dioxide 24 mmol/L (21.0-32.0); Chloride 105 mmol/L (98-107); Creatinine,Serum 1.19 mg/dL (0.70-1.30); Estimated Glomerular Filt Rate 61 ml/min (>60); GFR (African American) 73 ML/MIN (>60); Glucose 95 mg/dL (74-106); Potassium 4.5 mmoL/L (3.5-5.1); Sodium 138 mmol/L (136-145)
== END ==
PROVIDERS: Visit Provider Anesthesiology
DX: Z01.818 Encounter for other preprocedural examination (principal)
CPT/HCPCS: 36415; 80048; 85025

== ENCOUNTER → 2018-08-27 14:00 | Outpatient (POV) | payer MEDICARE, MEDICAID, SELFPAY ==
--- NOTE | 2018-08-27 14:47 | HMH.PAINSOAP ---
[facility] Pain Management SOAP Note Subjective:: Patient is a pleasant 67-year-old white male who presents today for follow-up after intrathecal pain pump placement. Patient rates his pain while sitting a 4 out of 10, and a 6 out of 10 with standing, and bilateral foot pain. His pain is located in his lower back. The patient does report that he is having some difficulty with urination since intrathecal pump insertion. He says this is something new for him. He denies any other side effects to the medication. ROS General: no recent weight change, no fever, no sleep disturbances Respiratory: no cough, no shortness of air, no recurring pulmonary infections Cardiovascular/Peripheral Vascular: No chest pain, No palpitations, no edema, no shortness of breath. Gastrointestinal: no incontinence, normal bowel movements reported Genitourinary: no incontinence Musculoskeletal: [Back pain] Psychiatric: normal mood/ affect, [denies depression], [denies anxiety] Neurological: [denies weakness in extremities], [denies balance issues] Objective:: Physical Exam General: Alert and oriented x3, no acute distress, pleasant and cooperative, [on room air] Lungs: Resps E/U, Symmetrical chest expansion, Eyes: PERRL Musculoskeletal: Flexion and extension of [lumbar] spine somewhat guarded secondary to pain, deep tendon reflexes normal, strength in upper and lower extremities [5/5], normal gait noted Neurological: speech clear, customer experience manager equal, no gross sensory deficits Assessment:: Post laminectomy syndrome of lumbar spine with degenerative disc disease of lumbar spine with lumbar radiculopathy symptoms and bilateral foot pain Plan:: Wound VAC was removed from incision. Incision well approximated, no redness, no drainage, or infection noted at site. We will start the patient on Flomax 0.4 mg p.o. daily. We will see the patient back in the office in 1 week and reassess his symptoms at that time. He has been instructed to call the office if he has any issues prior to that appointment. Dr. Hyman has reviewed this note and agrees with this plan of care. This note was dictated using voice recognition software and may contain errors or omissions
[2018-08-27 14:49] VITALS: BP 135/84; PULSE 63; RESP 18; O2SAT 95; BMI 32.0
--- NOTE | 2018-08-27 14:51 | P.CONS_ITS ---
[facility] Pain Management SOAP Note Subjective:: Patient is a pleasant 67-year-old white male who presents today for follow-up after intrathecal pain pump placement. Patient rates his pain while sitting a 4 out of 10, and a 6 out of 10 with standing, and bilateral foot pain. His pain is located in his lower back. The patient does report that he is having some difficulty with urination since intrathecal pump insertion. He says this is something new for him. He denies any other side effects to the medication. ROS General: no recent weight change, no fever, no sleep disturbances Respiratory: no cough, no shortness of air, no recurring pulmonary infections Cardiovascular/Peripheral Vascular: No chest pain, No palpitations, no edema, no shortness of breath. Gastrointestinal: no incontinence, normal bowel movements reported Genitourinary: no incontinence Musculoskeletal: [Back pain] Psychiatric: normal mood/ affect, [denies depression], [denies anxiety] Neurological: [denies weakness in extremities], [denies balance issues] Objective:: Physical Exam General: Alert and oriented x3, no acute distress, pleasant and cooperative, [on room air] Lungs: Resps E/U, Symmetrical chest expansion, Eyes: PERRL Musculoskeletal: Flexion and extension of [lumbar] spine somewhat guarded secondary to pain, deep tendon reflexes normal, strength in upper and lower extremities [5/5], normal gait noted Neurological: speech clear, reject opener and filler equal, no gross sensory deficits Assessment:: Post laminectomy syndrome of lumbar spine with degenerative disc disease of lumbar spine with lumbar radiculopathy symptoms and bilateral foot pain Plan:: Wound VAC was removed from incision. Incision well approximated, no redness, no drainage, or infection noted at site. We will start the patient on Flomax 0.4 mg p.o. daily. We will see the patient back in the office in 1 week and reassess his symptoms at that time. He has been instructed to call the office if he has any issues prior to that appointment. Dr. Hyman has reviewed this note and agrees with this plan of care. This note was dictated using voice recognition software and may contain errors or omissions
== END ==
PROVIDERS: PCP Family Medicine; Visit Provider Clinical Nurse Specialist Family Health
DX: M96.1 Postlaminectomy syndrome, not elsewhere classified (principal); M51.16 Intervertebral disc disorders with radiculopathy, lumbar region; M79.672 Pain in left foot; M79.671 Pain in right foot
CPT/HCPCS: 99212

== ENCOUNTER → 2018-09-03 08:43 | Outpatient (POV) | payer MEDICARE, MEDICAID, SELFPAY ==
--- NOTE | 2018-09-03 08:58 | HMH.PAINSOAP ---
[facility] Pain Management SOAP Note Subjective:: Patient is a pleasant 67-year-old white male who presents today for follow-up with intrathecal pain pump placement. The patient was seen last week post surgery. He did complain of hesitancy and difficulty with urination at that time. This was something new for him. PAtient was started on Flomax 0.4 mg p.o. daily. Today, he says that he is continuing to have difficulty with urination. He also reports that he is having increased pain at night, with burning and tingling to his bilateral feet. He does rate his pain a 3 out of 10 today. Patient says he has had about 70% relief thus far with his pain during the day. He does say that he has about 30% relief at night. Review of Systems General: No recent weight changes, no fever, no sleep disturbances Respiratory: No cough, no shortness of air, no recurring pulmonary infections Cardiovascular/peripheral vascular: No chest pain, no palpitations, no edema, no shortness of breath Gastrointestinal: No new onset incontinence, normal bowel movements reported Genitourinary: No new onset incontinence Musculoskeletal: Back pain Psychiatric: Normal mood/affect Neurological: [Denies weakness in extremities], [denies balance issues] Objective:: Physical exam General: Alert and oriented x3, no acute distress, pleasant and cooperative, [on room air] Lungs: Respirations even and unlabored, symmetrical chest expansion Eyes: PERRL Musculoskeletal: Flexion and extension of lumbar spine somewhat guarded secondary to pain, deep tendon reflexes normal, strength in upper and lower extremities [5/5], [abnormal gait noted] Neurological: Speech clear, pensions retirement plan specialist equal, no gross sensory deficit Assessment:: Postlaminectomy syndrome of lumbar spine with degenerative disc disease of lumbar spine with lumbar radiculopathy and bilateral foot pain Plan:: We will increase the patient's dose of Flomax to 0.8 mg p.o. daily. We will also start the patient's a low-dose PTC of 0.02 mg. We will see the patient back in 1 week. The patient has been instructed to call the office if he has any concerns prior to his next visit. Patient verbalizes understanding. Dr. Hyman has reviewed this note and agrees with this plan of care. This note was dictated using voice recognition software and make contain errors or omissions.
[2018-09-03 09:00] VITALS: BP 133/84; PULSE 71; RESP 18; O2SAT 98; BMI 13.0
--- NOTE | 2018-09-03 09:02 | P.CONS_ITS ---
[facility] Pain Management SOAP Note Subjective:: Patient is a pleasant 67-year-old white male who presents today for follow-up with intrathecal pain pump placement. The patient was seen last week post surgery. He did complain of hesitancy and difficulty with urination at that time. This was something new for him. PAtient was started on Flomax 0.4 mg p.o. daily. Today, he says that he is continuing to have difficulty with urination. He also reports that he is having increased pain at night, with burning and tingling to his bilateral feet. He does rate his pain a 3 out of 10 today. Patient says he has had about 70% relief thus far with his pain during the day. He does say that he has about 30% relief at night. Review of Systems General: No recent weight changes, no fever, no sleep disturbances Respiratory: No cough, no shortness of air, no recurring pulmonary infections Cardiovascular/peripheral vascular: No chest pain, no palpitations, no edema, no shortness of breath Gastrointestinal: No new onset incontinence, normal bowel movements reported Genitourinary: No new onset incontinence Musculoskeletal: Back pain Psychiatric: Normal mood/affect Neurological: [Denies weakness in extremities], [denies balance issues] Objective:: Physical exam General: Alert and oriented x3, no acute distress, pleasant and cooperative, [on room air] Lungs: Respirations even and unlabored, symmetrical chest expansion Eyes: PERRL Musculoskeletal: Flexion and extension of lumbar spine somewhat guarded se condary to pain, deep tendon reflexes normal, strength in upper and lower extremities [5/5], [abnormal gait noted] Neurological: Speech clear, drawing in hand equal, no gross sensory deficit Assessment:: Postlaminectomy syndrome of lumbar spine with degenerative disc disease of lumbar spine with lumbar radiculopathy and bilateral foot pain Plan:: We will increase the patient's dose of Flomax to 0.8 mg p.o. daily. We will also start the patient's a low-dose PTC of 0.02 mg. We will see the patient back in 1 week. The patient has been instructed to call the office if he has any concerns prior to his next visit. Patient verbalizes understanding. Dr. Hyman has reviewed this note and agrees with this plan of care. This note was dictated using voice recognition software and make contain errors or omissions.
== END ==
PROVIDERS: PCP Family Medicine; Visit Provider Clinical Nurse Specialist Family Health
DX: M96.1 Postlaminectomy syndrome, not elsewhere classified (principal); M51.16 Intervertebral disc disorders with radiculopathy, lumbar region; M79.672 Pain in left foot; M79.671 Pain in right foot
CPT/HCPCS: 62368

== ENCOUNTER → 2018-09-10 10:39 | Outpatient (POV) | payer MEDICARE, MEDICAID, SELFPAY ==
--- NOTE | 2018-09-10 11:03 | HMH.PMPROC ---
- Procedure Date: 09/10/18 Time: 11:03 Anesthesiologist:: Jenna Rivera APRN Complications:: None Pre-procedure Diagnosis:: Postlaminectomy syndrome of lumbar spine with degenerative disc disease of lumbar spine with lumbar radiculopathy symptoms and bilateral foot pain Post-procedure Diagnosis:: Same Indications for Procedure:: Patient is a pleasant 67-year-old white male who presents today for follow-up after intrathecal pain pump placement. Patient rates his pain a 3 out of 10 while sitting, and a 6 out of 10 with standing. His last visit, he was still having some difficulty with urination. The patient has been taking Flomax 0.4 mg p.o. daily and says that he is no longer having any difficulty with urination. He is complaining of worsening pain at night. He says that he has been using his PTC bolus before bed, and is concerned about taking it throughout the day when he is having increased pain for fear of overdosing. The patient was educated on the PTC boluses and understands that he can give himself a bolus when he is having increased pain throughout the day. The patient would like to have an increase in his dose today. Physical exam General: Alert and oriented x3, no acute distress, pleasant and cooperative, [on room air] Lungs: Respirations even and unlabored, symmetrical chest expansion Eyes: PERRL Musculoskeletal: Flexion and extension of lumbar spine somewhat guarded secondary to pain, deep tendon reflexes normal, strength in upper and lower extremities [5/5], [abnormal gait noted] Neurological: Speech clear, restaurant district manager equal, no gross sensory deficit Procedure Details:: Informed consent was obtained and the risk and benefits of the procedure were explained to the patient. Patient was taken to the procedure room where noninvasive monitoring was placed including noninvasive blood pressure cuff and pulse oximeter. Patient's pump was interrogated and was reprogrammed. His rate was increased to 0.3 mg of morphine. The patient tolerated the procedure well with no complications. Plan and Disposition:: We will see the patient back at the next intrathecal pain pump refill and reprogram. He has been instructed to call the office if he has any concerns prior to his next appointment. Dr. Hyman has reviewed this note and agrees with this plan of care. This note was dictated using voice recognition software and make contain errors or omissions.
[2018-09-10 11:06] VITALS: BP 135/78; PULSE 96; RESP 18; O2SAT 98; BMI 32.0
--- NOTE | 2018-09-10 11:09 | P.PCN_ITS ---
- Procedure Date: 09/10/18 Time: 11:03 Anesthesiologist:: Jenna Rivera APRN Complications:: None Pre-procedure Diagnosis:: Postlaminectomy syndrome of lumbar spine with degenerative disc disease of lumbar spine with lumbar radiculopathy symptoms and bilateral foot pain Post-procedure Diagnosis:: Same Indications for Procedure:: Patient is a pleasant 67-year-old white male who presents today for follow-up after intrathecal pain pump placement. Patient rates his pain a 3 out of 10 while sitting, and a 6 out of 10 with standing. His last visit, he was still having some difficulty with urination. The patient has been taking Flomax 0.4 mg p.o. daily and says that he is no longer having any difficulty with urination. He is complaining of worsening pain at night. He says that he has been using his PTC bolus before bed, and is concerned about taking it throughout the day when he is having increased pain for fear of overdosing. The patient was educated on the PTC boluses and understands that he can give himself a bolus when he is having increased pain throughout the day. The patient would like to have an increase in his dose today. Physical exam General: Alert and oriented x3, no acute distress, pleasant and cooperative, [on room air] Lungs: Respirations even and unlabored, symmetrical chest expansion Eyes: PERRL Musculoskeletal: Flexion and extension of lumbar spine somewhat guarded secondary to pain, deep tendon reflexes normal, strength in upper and lower extremities [5/5], [abnormal gait noted] Neurological: Speech clear, cell manager equal, no gross sensory deficit Procedure Details:: Informed consent was obtained and the risk and benefits of the procedure were explained to the patient. Patient was taken to the procedure room where noninvasive monitoring was placed including noninvasive blood pressure cuff and pulse oximeter. Patient's pump was interrogated and was reprogrammed. His rate was increased to 0.3 mg of morphine. The patient tolerated the procedure well with no complications. Plan and Disposition:: We will see the patient back at the next intrathecal pain pump refill and r eprogram. He has been instructed to call the office if he has any concerns prior to his next appointment. Dr. Hyman has reviewed this note and agrees with this plan of care. This note was dictated using voice recognition software and make contain errors or omissions.
== END ==
PROVIDERS: PCP Family Medicine; Visit Provider Clinical Nurse Specialist Family Health
DX: M96.1 Postlaminectomy syndrome, not elsewhere classified (principal); M51.16 Intervertebral disc disorders with radiculopathy, lumbar region; M79.672 Pain in left foot; M79.671 Pain in right foot
CPT/HCPCS: 62368; 99213

== ENCOUNTER → 2018-10-29 10:14 | Outpatient (POV) | payer MEDICARE, MEDICAID, SELFPAY ==
[2018-10-29 10:36] VITALS: BP 125/77; PULSE 75; RESP 18; O2SAT 98; BMI 32.0
--- NOTE | 2018-10-29 12:42 | P.PCN_ITS ---
- Procedure Date: 10/29/18 Time: 12:39 Anesthesiologist:: Jackie Denney APRN Complications:: None Pre-procedure Diagnosis:: Post laminectomy syndrome lumbar spine with degenerative disc disease lumbar spine with lumbar radiculopathy symptoms and bilateral foot pain Post-procedure Diagnosis:: Same Indications for Procedure:: Patient is a pleasant 68-year-old white male who presents today for follow-up and intrathecal pain pump adjustment. Patient is being treated for pain secondary to degenerative disc disease post laminectomy syndrome. Patient states that the pain in his feet has changed recently. Patient does not have any noted swelling however he states it feels like he has swelling. Patient is currently on a morphine dose of 0.3 mg/day. He is also utilizing a bolus at nighttime before bed of 0.02 mg/day he states it is very beneficial. While in the office he gave himself 1 bolus of 0.02 mg and the sensation of swelling seemed to decrease. We will make some adjustments today and see if this is beneficial for him. Patient is not having any difficulty urinating he is not having any oversedation. Physical Exam General: Alert and oriented x3, no acute distress, pleasant and cooperative, [on room air] Lungs: Resps E/U, Symmetrical chest expansion, Eyes: PERRL Musculoskeletal: Flexion and extension of lumbar spine somewhat guarded secondary to pain, deep tendon reflexes normal, strength in upper and lower extremities [5/5], [abnormal gait noted] Neurological: speech clear, publications designer equal, no gross sensory deficits Procedure Details:: Informed consent was obtained and the risk and benefits of the procedure were explained to the patient. The patient was taken to the procedure room where noninvasive monitoring was placed including noninvasive blood pressure cuff and pulse oximeter. Patient's pump was interrogated and reprogrammed. The infusion rate was increased to 0.36 mg a day of morphine . The patient tolerated the procedure well. Plan and Disposition:: I well follow-up with the patient in a week and reassess his symptoms at that time he is been instructed to call the office if he has any issues prior to his next appointment. Dr. Hyman has reviewed this note and agrees with this plan of care. This note was dictated using voice recognition software and may contain errors or omissions.
== END ==
PROVIDERS: PCP Family Medicine; Visit Provider Clinical Nurse Specialist Family Health
DX: M96.1 Postlaminectomy syndrome, not elsewhere classified (principal); M51.16 Intervertebral disc disorders with radiculopathy, lumbar region; M79.671 Pain in right foot; M79.672 Pain in left foot
CPT/HCPCS: 62368

== ENCOUNTER → 2018-11-05 12:38 | Outpatient (POV) | payer MEDICARE, MEDICAID, SELFPAY ==
[2018-11-05 13:04] VITALS: BP 122/75; PULSE 69; RESP 18; O2SAT 98; BMI 32.0
--- NOTE | 2018-11-05 13:13 | HMH.PMPROC ---
- Procedure Date: 11/05/18 Time: 13:13 Anesthesiologist:: Jackie Denney APRN Complications:: None Pre-procedure Diagnosis:: Postlaminectomy syndrome lumbar spine with degenerative disc disease lumbar spine with lumbar radiculopathy symptoms and bilateral foot pain Post-procedure Diagnosis:: Same Indications for Procedure:: Patient is a pleasant 68-year-old white male who presents today for follow-up. Also for intrathecal pain pump adjustment. He still having a bit of pain rating it a 5 out of 10 however he is having issues with swelling in his bilateral feet. We will switch him to Dilaudid at his next visit. He is utilizing a bolus at nighttime before bed. Patient is not describing any other side effects. [facility] #[id number] reviewed and appropriate. Physical Exam General: Alert and oriented x3, no acute distress, pleasant and cooperative, [on room air] Lungs: Resps E/U, Symmetrical chest expansion, Eyes: PERRL Musculoskeletal: Flexion and extension of lumbar spine somewhat guarded secondary to pain, deep tendon reflexes normal, strength in upper and lower extremities [5/5], slightly antalgic gait noted Neurological: speech clear, caddy/caddie supervisor equal, no gross sensory deficits Procedure Details:: Informed consent was obtained and the risk and benefits of the procedure were explained to the patient. The patient was taken to the procedure room where noninvasive monitoring was placed including noninvasive blood pressure cuff and pulse oximeter. Patient's pump was interrogated and reprogrammed. The infusion rate was increased to 0.44 mg/day of morphine. The patient tolerated the procedure well. Plan and Disposition:: While the patient come back next week we will refill him with Dilaudid we will order 5 mg/mL and start him on 0.1 mg/day Dr. Hyman has reviewed this note and agrees with this plan of care. This note was dictated using voice recognition software and may contain errors or omissions
== END ==
PROVIDERS: PCP Family Medicine; Visit Provider Clinical Nurse Specialist Family Health
DX: M51.16 Intervertebral disc disorders with radiculopathy, lumbar region (principal); M96.1 Postlaminectomy syndrome, not elsewhere classified; M79.672 Pain in left foot; M79.671 Pain in right foot
CPT/HCPCS: 62368

== ENCOUNTER → 2018-11-19 10:26 | Outpatient (POV) | payer MEDICARE, MEDICAID, SELFPAY ==
[2018-11-19 10:32] VITALS: BP 125/79; PULSE 71; RESP 18; O2SAT 98; BMI 32.0
--- NOTE | 2018-11-19 12:16 | HMH.PMPROC ---
- Procedure Date: 11/19/18 Time: 12:16 Anesthesiologist:: Jackie Denney APRN Complications:: None Pre-procedure Diagnosis:: Degenerative disc disease lumbar spine with lumbar radiculopathy postlaminectomy syndrome bilateral foot pain Post-procedure Diagnosis:: Same Indications for Procedure:: he is a very pleasant 68-year-old white male who presents today for follow-up after his intrathecal medication change to Dilaudid. Patient is doing much better rating his pain a 3 out of 10. We will give him a slight increase today and start his PTC boluses back. Patient [facility] #[id number] reviewed and appropriate. Physical Exam General: Alert and oriented x3, no acute distress, pleasant and cooperative, [on room air] Lungs: Resps E/U, Symmetrical chest expansion, Eyes: PERRL Musculoskeletal: Flexion and extension of lumbar spine somewhat guarded secondary to pain, deep tendon reflexes normal, strength in upper and lower extremities [5/5], [abnormal gait noted] Neurological: speech clear, newspaper library manager equal, no gross sensory deficits Procedure Details:: Informed consent was obtained and the risk and benefits of the procedure were explained to the patient. The patient was taken to the procedure room where noninvasive monitoring was placed including noninvasive blood pressure cuff and pulse oximeter. Patient's pump was interrogated and reprogrammed. The infusion rate was increased to 0.125 mg of Dilaudid today's PTC was started at 0.0125 mg per activation. The patient tolerated the procedure well. Plan and Disposition:: We will follow-up with the patient at his next intrathecal pain pump refill and reprogram. He is been instructed to call the office if he has any issues prior to his next appointment. Dr. Hyman has reviewed this note and agrees with this plan of care. This note was dictated using voice recognition software and may contain errors or omissions
--- NOTE | 2018-11-19 12:20 | P.PCN_ITS ---
- Procedure Date: 11/19/18 Time: 12:16 Anesthesiologist:: Jackie Denney APRN Complications:: None Pre-procedure Diagnosis:: Degenerative disc disease lumbar spine with lumbar radiculopathy postlaminectomy syndrome bilateral foot pain Post-procedure Diagnosis:: Same Indications for Procedure:: he is a very pleasant 68-year-old white male who presents today for follow-up after his intrathecal medication change to Dilaudid. Patient is doing much better rating his pain a 3 out of 10. We will give him a slight increase today and start his PTC boluses back. Patient [facility] #[id number] reviewed and appropriate. Physical Exam General: Alert and oriented x3, no acute distress, pleasant and cooperative, [on room air] Lungs: Resps E/U, Symmetrical chest expansion, Eyes: PERRL Musculoskeletal: Flexion and extension of lumbar spine somewhat guarded secondary to pain, deep tendon reflexes normal, strength in upper and lower extremities [5/5], [abnormal gait noted] Neurological: speech clear, geriatric nurse practitioner equal, no gross sensory deficits Procedure Details:: Informed consent was obtained and the risk and benefits of the procedure were explained to the patient. The patient was taken to the procedure room where noninvasive monitoring was placed including noninvasive blood pressure cuff and pulse oximeter. Patient's pump was interrogated and reprogrammed. The infusion rate was increased to 0.125 mg of Dilaudid today's PTC was started at 0.0125 mg per activation. The patient tolerated the procedure well. Plan and Disposition:: We will follow-up with the patient at his next intrathecal pain pump refill and reprogram. He is been instructed to call the office if he has any issues prior to his next appointment. Dr. Hyman has reviewed this note and agrees with this plan of care. This note was dictated using voice recognition software and may contain errors or omissions
== END ==
PROVIDERS: PCP Family Medicine; Visit Provider Clinical Nurse Specialist Family Health
DX: M51.16 Intervertebral disc disorders with radiculopathy, lumbar region (principal); M96.1 Postlaminectomy syndrome, not elsewhere classified
CPT/HCPCS: 99212

== ENCOUNTER → 2018-11-28 10:32 | Outpatient (POV) | payer MEDICARE, MEDICAID, SELFPAY ==
[2018-11-28 10:46] VITALS: BP 140/69; PULSE 86; O2SAT 94; BMI 34.7
--- NOTE | 2018-11-28 11:29 | HMH.PAINSOAP ---
[facility] Pain Management SOAP Note Subjective:: Service 11/28/2018 68-year-old white male who presents today for follow-up. He is being treated for degenerative disc disease lumbar spine with lumbar radiculopathy, along with postlaminectomy syndrome and bilateral foot pain. Patient has a spinal cord stimulator, as well as an intrathecal pain pump. Patient says that his pain is a 5 out of 10, but he does continue to have bilateral foot pain with numbness and tingling, as well as swelling to his bilateral ankles and feet. Patient says that the edema to his lower extremities was present prior to the intrathecal pain pump. He says that he has discussed reprogramming his his spinal cord stimulator with the dairy supplies sales representative or than 10 times. He says he has still not gotten any relief. Patient says he is taking gabapentin in the past and it has not helped him, and he is currently taking Lyrica which is also giving him little to no relief. Patient says that he would prefer to get something for his swelling more than the numbness and tingling to his feet. Patient does not want a change in his intrathecal pump today. Review of Systems General: No recent weight changes, no fever, no sleep disturbances Respiratory: No cough, no shortness of air, no recurring pulmonary infections Cardiovascular/peripheral vascular: No chest pain, no palpitations, no edema, no shortness of breath Gastrointestinal: No new onset incontinence, normal bowel movements reported Genitourinary: No new onset incontinence Musculoskeletal: Bilateral foot pain, low back pain Psychiatric: Normal mood/affect Neurological: [Denies weakness in extremities], [denies balance issues] Objective:: Physical exam General: Alert and oriented x3, no acute distress, pleasant and cooperative, [on room air] Lungs: Respirations even and unlabored, symmetrical chest expansion Eyes: PERRL Musculoskeletal: Flexion and extension of lumbar spine somewhat guarded secondary to pain, deep tendon reflexes normal, strength in upper and lower extremities [5/5], slightly antalgic gait noted Neurological: Speech clear, ship wirer equal, no gross sensory deficit Assessment:: Degenerative disc disease lumbar spine with lumbar radiculopathy, postlaminectomy syndrome, bilateral foot pain Plan:: Patient does admit that he is edema to his bilateral lower extremities was present prior to his intrathecal pain pump. He is not interested in any oral medications for his numbness and tingling to his feet. He says that the medications he is tried. I did discuss with the patient that he should contact his spinal cord stimulator dairy supplies sales representative for possible reprogramming, but the patient is not interested in doing so at this time. He does not feel like the stimulator is going to work for the pain in his feet. Patient does say he has a follow-up appointment with his primary care provider coming week. I have encouraged the patient to discuss his edema to his bilateral lower extremities with his primary care provider, as this was present prior to his intrathecal pain pump. Patient was also encouraged to start performing daily weights having any changes in his weight so that he may discuss this as well with his primary care provider. Patient is not interested in any changes in his intrathecal pain pump dosing today. The patient says that he will follow-up with us during his intrathecal pain pump refill. He is also not interested in any type of injective therapy. The patient is continuing with anti-inflammatories and home stretching program he has been encouraged to contact the clinic if he has any concerns before his next appointment. Dr. Hyman has reviewed this note and agrees with this plan of care. This note was dictated using voice recognition software and make contain errors or omissions. [facility] History I have reviewed the patient's past medical history: Yes Medical History: Reports:: Chronic Obstructive Pulmonary Di
--- NOTE | 2018-11-28 11:35 | P.CONS_ITS ---
[facility] Pain Management SOAP Note Subjective:: Service 11/28/2018 68-year-old white male who presents today for follow-up. He is being treated for degenerative disc disease lumbar spine with lumbar radiculopathy, along with postlaminectomy syndrome and bilateral foot pain. Patient has a spinal cord stimulator, as well as an intrathecal pain pump. Patient says that his pain is a 5 out of 10, but he does continue to have bilateral foot pain with numbness and tingling, as well as swelling to his bilateral ankles and feet. Patient says that the edema to his lower extremities was present prior to the intrathecal pain pump. He says that he has discussed reprogramming his his spinal cord stimulator with the territory representative or than 10 times. He says he has still not gotten any relief. Patient says he is taking gabapentin in the past and it has not helped him, and he is currently taking Lyrica which is also giving him little to no relief. Patient says that he would prefer to get something for his swelling more than the numbness and tingling to his feet. Patient does not want a change in his intrathecal pump today. Review of Systems General: No recent weight changes, no fever, no sleep disturbances Respiratory: No cough, no shortness of air, no recurring pulmonary infections Cardiovascular/peripheral vascular: No chest pain, no palpitations, no edema, no shortness of breath Gastrointestinal: No new onset incontinence, normal bowel movements reported Genitourinary: No new onset incontinence Musculoskeletal: Bilateral foot pain, low back pain Psychiatric: Normal mood/affect Neurological: [Denies weakness in extremities], [denies balance issues] Objective:: Physical exam General: Alert and oriented x3, no acute distress, pleasant and cooperative, [on room air] Lungs: Respirations even and unlabored, symmetrical chest expansion Eyes: PERRL Musculoskeletal: Flexion and extension of lumbar spine somewhat guarded secondary to pain, deep tendon reflexes normal, strength in upper and lower extremities [5/5], slightly antalgic gait noted Neurological: Speech clear, travel clerk equal, no gross sensory deficit Assessment:: Degenerative disc disease lumbar spine with lumbar radiculopathy, postlaminectomy syndrome, bilateral foot pain Plan:: Patient does admit that he is edema to his bilateral lower extremities was present prior to his intrathecal pain pump. He is not interested in any oral medications for his numbness and tingling to his feet. He says that the medications he is tried. I did discuss with the patient that he should contact his spinal cord stimulator territory representative for possible reprogramming, but the patient is not interested in doing so at this time. He does not feel like the stimulator is going to work for the pain in his feet. Patient does say he has a follow-up appointment with his primary care provider coming week. I have encouraged the patient to discuss his edema to his bilateral lower extremities with his primary care provider, as this was present prior to his intrathecal pain pump. Patient was also encouraged to start performing daily weights having any changes in his weight so that he may discuss this as well with his primary care provider. Patient is not interested in any changes in his intrathecal pain pump dosing today. The patient says that he will follow-up with us during his intrathecal pain pump refill. He is also not interested in any type of injective therapy. The patient is continuing with anti-inflammatories and home stretching program he has been encouraged to contact the clinic if he has any concerns before his next appointment.
== END ==
PROVIDERS: PCP Family Medicine; Visit Provider Clinical Nurse Specialist Family Health
DX: M51.16 Intervertebral disc disorders with radiculopathy, lumbar region (principal); M96.1 Postlaminectomy syndrome, not elsewhere classified; M79.672 Pain in left foot; M79.671 Pain in right foot
CPT/HCPCS: 99212

== ENCOUNTER → 2018-12-16 13:15 | Outpatient (POV) | payer MEDICARE, MEDICAID, SELFPAY ==
[2018-12-16 13:37] VITALS: BP 132/97; PULSE 70; RESP 18; O2SAT 98; BMI 26.1
--- NOTE | 2018-12-17 11:11 | HMH.PAINSOAP ---
[facility] Pain Management SOAP Note Subjective:: Patient is a pleasant 68-year-old white male who presents today for follow-up. Patient is still having side effects to his Dilaudid he is having difficulty with urination and some swelling. He is not getting enough coverage of pain in his bilateral feet. Patient and I discussed today we will be switching him to bupivacaine only. Patient rates his pain 3 out of 10 today. Patient is currently on Lyrica 300 mg at nighttime and this is beneficial for him. ROS General: no recent weight change, no fever, no sleep disturbances Respiratory: no cough, no shortness of air, no recurring pulmonary infections Cardiovascular/Peripheral Vascular: No chest pain, No palpitations, no edema, no shortness of breath. Gastrointestinal: no new onset incontinence, normal bowel movements reported Genitourinary: no new onset incontinence Musculoskeletal: Bilateral foot pain Psychiatric: normal mood/ affect Neurological: [denies new onset weakness in extremities], [denies new onset balance issues] Objective:: Physical Exam General: Alert and oriented x3, no acute distress, pleasant and cooperative, [on room air] Lungs: Resps E/U, Symmetrical chest expansion, Eyes: PERRL Musculoskeletal: Flexion and extension of lumbar spine somewhat guarded secondary to pain, deep tendon reflexes normal, strength in upper and lower extremities [5/5], [abnormal gait noted] Neurological: speech clear, 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 We will plan on switching him to bupivacaine only pump starting at 2.[address] Hyman has reviewed this note and agrees with this plan of care. This note was dictated using voice recognition software and may contain errors or omissions [facility] History I have reviewed the patient's past medical history: Yes Medical History: Reports:: Chronic Obstructive Pulmonary Disease (COPD), Gastroesophageal Reflux Disease(GERD), Hypertension, Lung Disease (copd) Denies:: Cancer, Diabetes Mellitus Type 1, Diabetes Mellitus Type 2, Internal Pacemaker, MRSA, Seizures *Have you ever received a pneumonia vaccine?: Yes *Have you received a flu vaccine this season?: Yes Other Medical History: Denies: Blood Transfusion Reaction (N/A) Laterality Cases: Right: Arthroscopy Knee, Bilateral: Carpal Tunnel Release Other Surgeries: Yes: Colonoscopy, Other (Back sx). No: Pacemaker Amputation: No Fractures: Yes (back) - *Social History Smoking Status: Former smoker Tobacco Type: cigarettes # Packs/Day (cigarettes): 0 Alcohol Intake: never *Occupational Status:: other Housing: house Household Members: spouse *Travel in the last 8 weeks: None Family Hx:: Cancer, Hypertension
== END ==
PROVIDERS: PCP Family Medicine; Visit Provider Clinical Nurse Specialist Family Health
DX: M51.16 Intervertebral disc disorders with radiculopathy, lumbar region (principal); M96.1 Postlaminectomy syndrome, not elsewhere classified; M79.671 Pain in right foot; M79.672 Pain in left foot
CPT/HCPCS: 99212

== ENCOUNTER → 2019-02-10 10:34 | Outpatient (POV) | payer MEDICARE, MEDICAID, SELFPAY ==
[2019-02-10 12:44] VITALS: BP 142/73; PULSE 76; RESP 18; O2SAT 99; BMI 32.0
--- NOTE | 2019-02-10 13:06 | P.CONS_ITS ---
[facility] Pain Management SOAP Note Subjective:: Patient is a pleasant 68-year-old white male who presents today for follow-up. Patient is having side effects from his Dilaudid. He is having difficulty with urination, swelling, no pain relief in his bilateral feet. Patient and I discussed switching to bupivacaine only. I also discussed with Dr. Hyman which he would like to move forward with this. He rates his pain a 4 out of 10 and states that it is worse in the morning. ROS General: no recent weight change, no fever, no sleep disturbances Respiratory: no cough, no shortness of air, no recurring pulmonary infections Cardiovascular/Peripheral Vascular: No chest pain, No palpitations, no edema, no shortness of breath. Gastrointestinal: no new onset incontinence, normal bowel movements reported Genitourinary: no new onset incontinence Musculoskeletal: Bilateral foot pain Psychiatric: normal mood/ affect Neurological: [denies new onset weakness in extremities], [denies new onset balance issues] Objective:: Physical Exam General: Alert and oriented x3, no acute distress, pleasant and cooperative, [on room air] Lungs: Resps E/U, Symmetrical chest expansion, Eyes: PERRL Musculoskeletal: Flexion and extension of lumbar spine somewhat guarded secondary to pain, deep tendon reflexes normal, strength in upper and lower extremities [5/5], antalgic gait noted Neurological: speech clear, foreman/pile driving and erection equal, no gross sensory deficits Assessment:: Bilateral foot pain, degenerative disc disease lumbar spine with lumbar radiculopathy, postlaminectomy Plan:: We will set the patient up with Dr. Hyman to have a intrathecal pain pump pain medicine switch out. Including a catheter aspiration. We will start him on bupivacaine 5 mg/mL and we will start him at 2.5 mg/day to see how this works for him. He is been instructed to call the office if he has any issues prior to his next appointment. Patient left with an appointment card. Dr. Hyman has reviewed this note and agrees with this plan of care. This note was dictated using voice recognition software and may contain errors or omissions [facility] History I have reviewed the patient's past medical history: Yes Medical History: Reports:: Chronic Obstructive Pulmonary Disease (COPD), Gastroesophageal Reflux Disease(GERD), Hypertension, Lung Disease (copd) Denies:: Cancer, Diabetes Mellitus Type 1, Diabetes Mellitus Type 2, Internal Pacemaker, MRSA, Seizures *Have you ever received a pneumonia vaccine?: Yes *Have you received a flu vaccine this season?: Yes Other Medical History: Denies: Blood Transfusion Reaction (N/A) Laterality Cases: Right: Arthroscopy Knee, Bilateral: Carpal Tunnel Release Other Surgeries: Yes: Colonoscopy, Other (Back sx). No: Pacemaker Amputation: No Fractures: Yes (back) - *Social History Smoking Status: Former smoker Tobacco Type: cigarettes # Packs/Day (cigarettes): 0 Alcohol Intake: never *Occupational Status:: other Housing: house Household Members: spouse *Travel in the last 8 weeks: None Family Hx:: Cancer, Hypertension
== END ==
PROVIDERS: PCP Family Medicine; Visit Provider Clinical Nurse Specialist Family Health
DX: M79.672 Pain in left foot (principal); M79.671 Pain in right foot; M51.16 Intervertebral disc disorders with radiculopathy, lumbar region; M96.1 Postlaminectomy syndrome, not elsewhere classified
CPT/HCPCS: 99212

== ENCOUNTER → 2019-02-24 09:15 | Outpatient (POV) | payer MEDICARE, MEDICAID, SELFPAY ==
[2019-02-24 09:38] VITALS: BP 132/78; PULSE 78; RESP 18; O2SAT 99; BMI 32.0
--- NOTE | 2019-02-24 10:39 | HMH.PMPROC ---
- Procedure Date: 02/24/19 Time: 10:39 Anesthesiologist:: Jackie Denney APRN Complications:: None Pre-procedure Diagnosis:: degenerative disc disease lumbar spine with lumbar radiculopathy symptoms Post-procedure Diagnosis:: Same Indications for Procedure:: Patient is a very pleasant 5-year-old white male who presents today for intrathecal pain pump reprogram. He rates his pain a 5 out of 10. Patient is on a bupivacaine only pump. He denies any side effects. He states that it has been beneficial in the left hip pain. He still having some pain in his feet. We gave him 0.5 mg bolus while he was in the office which decreased his pain significantly. We will increase his intrathecal infusion today. ROS General: no recent weight change, no fever, no sleep disturbances Respiratory: no cough, no shortness of air, no recurring pulmonary infections Cardiovascular/Peripheral Vascular: No chest pain, No palpitations, no edema, no shortness of breath. Gastrointestinal: no new onset incontinence, normal bowel movements reported Genitourinary: no new onset incontinence Musculoskeletal: Bilateral foot pain Psychiatric: normal mood/ affect Neurological: [denies new onset weakness in extremities], [denies new onset balance issues] Procedure Details:: Informed consent was obtained and the risk and benefits of the procedure were explained to the patient. The patient was taken to the procedure room where noninvasive monitoring was placed including noninvasive blood pressure cuff and pulse oximeter. Patient's pump was interrogated and reprogrammed. The infusion rate was increased to 3.5 mg of bupivacaine a day. The patient tolerated the procedure well. Plan and Disposition:: We will follow-up with the patient at his next intrathecal pain pump refill and reprogram he is been instructed to call the office if he has any issues prior to his next appointment. Dr. Hyman has reviewed this note and agrees with this plan of care. This note was dictated using voice recognition software and may contain errors or omissions
== END ==
PROVIDERS: PCP Family Medicine; Visit Provider Clinical Nurse Specialist Family Health
DX: M51.16 Intervertebral disc disorders with radiculopathy, lumbar region (principal)
CPT/HCPCS: 62368

== ENCOUNTER → 2019-03-07 09:57 | Outpatient (POV) | payer MEDICARE, MEDICAID, SELFPAY ==
[2019-03-07 10:24] VITALS: BP 135/77; PULSE 62; RESP 22; O2SAT 98; BMI 32.0
--- NOTE | 2019-03-07 10:46 | HMH.PMPROC ---
- Procedure Date: 03/07/19 Time: 10:50 Anesthesiologist:: Silverio Hyman MD Complications:: None Pre-procedure Diagnosis:: Degenerative disc disease of lumbar spine with lumbar radiculopathy symptoms Post-procedure Diagnosis:: Same Indications for Procedure:: This patient is a pleasant 68-year-old white male who we are treating for low back pain with lumbar radicular symptoms. He is on an intrathecal bupivacaine pain pump. At his last refill he was increased from 5 mg/mL to 10 mg/mL concentration. His dose remained at 3.5 mg/day. Since his last refill he has been not feeling well and very depressed. The only change that was made was to double his concentration which decreased his volume infused. I believe this may have an effect on his mood and increasing his pain symptoms. Today we will increase his dose to increase his volume infused and also place him on Cymbalta 30 mg once a day. Procedure Details:: Reprogramming adjustment of intrathecal bupivacaine infusion Informed consent was obtained and the risk and benefits of the procedure was explained to the patient. Patient was taken to the procedure room. Intrathecal pain pump was adjusted concentration remains at 10 mg/mL however dose was increased to 4.5 mg/day. PTC boluses were increased from 0.3 mg to 0.5 mg up to 3 times a day. Patient tolerated the procedure well with no complications. Plan and Disposition:: We will follow-up with him on Sunday. We will also place him on Cymbalta 30 mg once a day to see if this helps with his depressed mood.
== END ==
PROVIDERS: PCP Family Medicine; Visit Provider Anesthesiology
DX: M51.16 Intervertebral disc disorders with radiculopathy, lumbar region (principal)
CPT/HCPCS: 62368

== ENCOUNTER → 2019-03-11 12:40 | Outpatient (POV) | payer MEDICARE, MEDICAID, SELFPAY ==
--- NOTE | 2019-03-11 13:31 | P.PCN_ITS ---
- Procedure Date: 03/11/19 Time: 13:31 Anesthesiologist:: Jackie Denney APRN Complications:: None Pre-procedure Diagnosis:: Degenerative disc disease lumbar spine with lumbar radiculopathy and bilateral peripheral neuropathy Post-procedure Diagnosis:: Same Indications for Procedure:: Patient is a pleasant 68-year-old white male who presents today for reprogramming. Patient states he is having severe side effects to his bupivacaine infusion stating that he is anxious and nervous and even though his pain is not as bad he is having quite a lot of anxiety. Patient would like his pain pump turned off today. We will move forward with this today. Patient will be seen on Sunday by Dr. Hyman for potential options in regards to his pain pump. 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 The patient was taken to the procedure room where noninvasive monitoring was placed including noninvasive blood pressure cuff and pulse oximeter. Patient's pump was interrogated and reprogrammed. The infusion rate was turned to 0 mg/day. The patient tolerated the procedure well. Plan and Disposition:: We will see the patient back on Sunday. Patient would like to stop his Cymbalta as well. Dr. Benitez see him and give him potential options for his intrathecal pain pump. Dr. Hyman has reviewed this note and agrees with this plan of care. This note was dictated using voice recognition software and may contain errors or omissions
[2019-03-11 13:36] VITALS: BP 149/88; PULSE 64; RESP 18; O2SAT 99; BMI 32.0
== END ==
PROVIDERS: PCP Family Medicine; Visit Provider Clinical Nurse Specialist Family Health
DX: M51.16 Intervertebral disc disorders with radiculopathy, lumbar region (principal); G62.89 Other specified polyneuropathies
CPT/HCPCS: 62368

== ENCOUNTER → 2019-03-14 08:31 | Outpatient (POV) | payer MEDICARE, MEDICAID, SELFPAY ==
--- NOTE | 2019-03-14 09:35 | HMH.PMPROC ---
- Procedure Date: 03/14/19 Time: 09:35 Anesthesiologist:: Silverio Hyman MD Complications:: None Pre-procedure Diagnosis:: Degenerative disc disease of lumbar spine with lumbar radiculopathy symptoms and bilateral peripheral neuropathy Post-procedure Diagnosis:: Same Indications for Procedure:: This patient is a pleasant 68-year-old white male who we are treating for low back pain with lumbar radiculopathy symptoms. He was having issues with his intrathecal bupivacaine infusion. He is very anxious and nervous. He was turned off last Sunday. His PTC remained on however. Patient did give himself a bolus which did alleviate some of his pain. The bupivacaine is helping significantly with his pain symptoms however he does not do well with a constant infusion. We will switch him to PTC only with 1 mg boluses up to 8 times a day with a 3-hour lockout. Mainly he needs these boluses at night. We also placed him on Cymbalta at his last visit. He was not able to take Cymbalta so he stopped taking it. Procedure Details:: Analysis and reprogramming of intrathecal bupivacaine pain pump. Informed consent was obtained and the risk and benefits of the procedure were explained to the patient. Patient was taken to the procedure room. The pump was interrogated. Patient was switched to PTC only with 1 mg boluses up to 8 times a day with a 3-hour lockout. Tolerated procedure well with no complications. The patient does not have any constant or continuous background infusion. Plan and Disposition:: We will follow-up with the patient in 2 weeks. Will reevaluate his symptoms at that time.
== END ==
PROVIDERS: PCP Family Medicine; Visit Provider Anesthesiology
DX: M51.16 Intervertebral disc disorders with radiculopathy, lumbar region (principal); G62.9 Polyneuropathy, unspecified
CPT/HCPCS: 62368

== ENCOUNTER → 2019-03-21 12:41 | Outpatient (POV) | payer MEDICARE, MEDICAID, SELFPAY ==
[2019-03-21 13:04] VITALS: BP 116/66; PULSE 74; RESP 18; O2SAT 97; BMI 32.0
--- NOTE | 2019-03-21 13:34 | P.PCN_ITS ---
- Procedure Date: 03/21/19 Time: 13:34 Anesthesiologist:: Silverio Hyman MD Complications:: None Pre-procedure Diagnosis:: Degenerative disc disease of lumbar spine with lumbar radiculopathy symptoms Post-procedure Diagnosis:: Same Indications for Procedure:: This patient is a pleasant 68-year-old white male who we are treating for low back pain with lumbar radiculopathy symptoms. He currently is on PTC boluses of 1 mg up to 8 times a day with a 3-hour lockout. He says he only uses it 3-4 times daily. He overall he is doing well. He does have some pain at night. I have talked to him about multiple rates versus periodic flow versus just using his PTC bolus at night. I have talked to him increasing his dose to 1.1 mg with each bolus to see if this will give him better pain relief. Overall he is doing better than previous. Procedure Details:: Analysis and reprogramming of intrathecal bupivacaine pain pump Informed consent was obtained the risk and benefits of the procedure were explained to the patient. Patient was taken to the procedure room. The pump was interrogated. Intrathecal bupivacaine pain pump was interrogated and reprogrammed PTC boluses were increased to 1.1 mg up to 8 times a day with a 3- hour lockout. Patient tolerated the procedure well with no complications. Plan and Disposition:: We will follow-up with this patient in 2 weeks. Will reevaluate his symptoms at that time.
== END ==
PROVIDERS: PCP Family Medicine; Visit Provider Anesthesiology
DX: M51.16 Intervertebral disc disorders with radiculopathy, lumbar region (principal)
CPT/HCPCS: 62368

== ENCOUNTER 2019-04-10 10:30 | Outpatient (RCR) | payer MEDICARE, MEDICAID, SELFPAY ==
--- NOTE | 2019-03-28 12:19 | HMH.PTOPEV ---
PT Outpatient Evaluation Rehab PT Outpatient Evaluation Start: 03/28/19 11:55 Freq: Status: Active Protocol: Document 03/28/19 11:56 ADDISONCHENTE (Rec: 03/28/19 12:19 [email or web address] [id number]) Electronically Signed By Tyron Carballo, PT 03/28/19 11:56 Outpatient Therapy Subjective History Subjective History Patient is a 68 year old male presenting to outpatient PT with reports of B ischial pain starting approximately 2 weeks ago. No mechanism of injury to report. Special tests indicate R ant/L posterior rotation of the innominant. Pt reports hx of lumbar spine surgery. He currently has lumbar spine stimulator and pain pump placed for low back pain and radiuclar symptoms. Comorbidites include lumbar spine stimulator/pump, HTN, B CTR and R knee arthroscopy. Chief Complaint Pain Symptom Type Sharp Symptoms Relieved By Activity Symptoms Aggravated By Sitting Prior Functional Limitations None Current Functional Limitations Sitting Symptom Description Intermittent Level of pain today (0-10) 5 Pain scale - at its best (0-10) 0 Pain scale - at its worst (0-10) 8 Lumbopelvic Eval Posture Thoracic Spine Posture Standing Position Increased Kyphosis Lumbar Spine Posture Standing Position Decreased Lordosis Gait Observation General Gait Pattern Observation No Deviations/Normal Palapation tenderness bilateral Lumbar/Sacral Palpation Findings Tenderness Lumbar/Sacral Palpation Overall Comment B PSIS and ischial tuberosities. Range of Motion Lumbar Spine ROM Reason Not Measured Within Functional Limits Manual Muscle Test Bilateral Knee Extension Strength Grade 5 Normal Knee Flexion Strength Grade 5 Normal Hip Flexion Strength Grade 5 Normal Extensor Hallucis Longus Strength Grade 5 Normal Ankle Dorsiflexion Strength Grade 5 Normal Gastronemius/Soleus Strength Grade 5 Normal DTR Rt Patellar 2+ Lt Patellar 2+ Rt Gastroc/Soleus 2+ Lt Gastroc/Soleus 2+ Special Tests Lumbar Spine Screen Positive Hip Christiana Test Positive Left,Positive Right Hip Piriformis Test Positive Left,Positive Right Hip Bowstring (Cram) Test Positive Left,Positive Right Sacroiliac Joint Compression Test Positive Left,Positive Right Sacroilia
== END 2019-04-10 10:35 | disposition home or self-care (01) ==
LOC: PT 10:30
PROVIDERS: PCP Family Medicine; Visit Provider Family Medicine
DX: R10.2 Pelvic and perineal pain; M25.552 Pain in left hip; M25.551 Pain in right hip
CPT/HCPCS: 20561; 97010; 97014; 97110; 97163; G0283

== ENCOUNTER → 2019-04-28 09:03 | Outpatient (POV) | payer MEDICARE, MEDICAID, SELFPAY ==
[2019-04-28 09:34] VITALS: BP 133/85; PULSE 74; RESP 18; O2SAT 98; BMI 32.0
--- NOTE | 2019-04-28 10:20 | HMH.PMPROC ---
- Procedure Date: 04/28/19 Time: 10:20 Anesthesiologist:: Jackie Denney APRN Complications:: None Pre-procedure Diagnosis:: Degenerative disc disease with lumbar radiculopathy symptoms Post-procedure Diagnosis:: Same Indications for Procedure:: Patient is a pleasant 68-year-old white male who presents today for follow-up he would like an increase in his bupivacaine pump. Patient is doing well with his boluses however he is having more pain at night. Patient is currently on a constant flow of 1 mg/day. We will decrease him to 2 mg/day Physical Exam General: Alert and oriented x3, no acute distress, pleasant and cooperative, [on room air] Lungs: Resps E/U, Symmetrical chest expansion, Eyes: PERRL Musculoskeletal: Flexion and extension of lumbar spine somewhat guarded secondary to pain, deep tendon reflexes normal, strength in upper and lower extremities [5/5], slightly antalgic gait noted Neurological: speech clear, knot picker cloth equal, no gross sensory deficits Procedure Details:: Informed consent was obtained and the risk and benefits of the procedure were explained to the patient. The patient was taken to the procedure room where noninvasive monitoring was placed including noninvasive blood pressure cuff and pulse oximeter. Patient's pump was interrogated and reprogrammed. The infusion rate was was increased to 2 mg a day of bupivacaine. The patient tolerated the procedure well. Plan and Disposition:: Patient will continue on with home refill. Patient has been instructed to call the office if he has any issues. We will see him in [address] Hyman has reviewed this note and agrees with this plan of care. This note was dictated using voice recognition software and may contain errors or omissions
== END ==
PROVIDERS: PCP Family Medicine; Visit Provider Clinical Nurse Specialist Family Health
DX: M51.16 Intervertebral disc disorders with radiculopathy, lumbar region (principal)
CPT/HCPCS: 62368

== ENCOUNTER → 2019-07-01 12:00 | Outpatient (POV) | payer MEDICARE, MEDICAID, SELFPAY ==
--- NOTE | 2019-07-01 12:03 | P.CONS_ITS ---
Audio Check In - Consent Consent for phone encounter:: With the recent concerns about the COVID-19, we are trying to minimize exposure to you by shifting to telehealth appointments whenever possible. It restricts me from seeing you in person, but the trade off is protecting you during this pandemic. Can you hear me okay, and do you consent to this option? If not, I would be happy to see if we can reschedule your appointment in the future, when feasible. Did the patient consent to virtual visit?: Yes Did the patient initiate this encounter?: Yes Is this audio check in related to the patient visit in the: Yes - Discussion Discussion:: Mr. Clancy currently has a bupivacaine only intrathecal pain pump. He is being program and filled by [facility]. He states that he needs adjus tments to his pump in regards to at nighttime. He does state he has had an improvement in sleeping time going from 1 hour to 3 hours. He denies any side effects to his medication. I will discussed this with the [facility] nurse and make recommendations once I reviewed the telemetry. Our overall goal will be to increase his boluses of bupivacaine that he can utilize at nighttime. Dr. Hyman has reviewed this note and agrees with this plan of care. This note was dictated using voice recognition software and may contain errors or omissions - Length of Encounter Time In:: 10:50 Time Out:: 11:00
== END ==
PROVIDERS: Visit Provider Clinical Nurse Specialist Family Health
DX: M51.16 Intervertebral disc disorders with radiculopathy, lumbar region (principal); M96.1 Postlaminectomy syndrome, not elsewhere classified
CPT/HCPCS: 99441; G2012

== ENCOUNTER → 2019-07-22 13:49 | Outpatient (POV) | payer MEDICARE, MEDICAID, SELFPAY ==
[2019-07-22 14:07] VITALS: BP 139/81; PULSE 86; RESP 18; O2SAT 94; BMI 32.0
--- NOTE | 2019-07-22 14:36 | P.PCN_ITS ---
- Procedure Date: 07/22/19 Time: 14:36 Anesthesiologist:: Jackie Denney APRN Complications:: None Pre-procedure Diagnosis:: Degenerative disc disease lumbar spine with lumbar radiculopathy Post-procedure Diagnosis:: Same Indications for Procedure:: Patient is a pleasant 68-year-old white male who presents today to discuss his intrathecal therapy he is currently on bupivacaine only pump. He is been unable to tolerate other medications in his pump. Patient states that his main complaint is pain and burning in his feet at nighttime. He has 2 stimulator systems. Patient is currently on 3.5 mg a day of bupivacaine with a bolus of 1.2 mg up to 4 times a day. We will increase his PTC boluses today. He denies side effects to his medication. 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 The patient was taken to the procedure room where non invasive monitoring was placed including noninvasive blood pressure cuff and pulse oximeter. Patient's pump was interrogated and reprogrammed. The infusion rate was left at 3.5 mg of bupivacaine a day and his PTC was increased to 1.3 mg over 5 minutes up to 5 times a day with a 3-hour lockout. The patient tolerated the procedure well. Plan and Disposition:: I will follow-up with the patient and reassess him in several weeks. He has been instructed to call the office if he has any issues prior to his next appointment. Dr. Hyman has reviewed this note and agrees with this plan of care. This note was dictated using voice recognition software and may contain errors or omissions
== END ==
PROVIDERS: PCP Family Medicine; Visit Provider Clinical Nurse Specialist Family Health
DX: M51.16 Intervertebral disc disorders with radiculopathy, lumbar region (principal)
CPT/HCPCS: 99212

== ENCOUNTER → 2019-09-22 09:46 | Outpatient (POV) | payer MEDICARE, MEDICAID, SELFPAY ==
--- NOTE | 2019-09-22 10:58 | HMH.PMPROC ---
- Procedure Date: 09/22/19 Time: 10:58 Anesthesiologist:: Jenna Rivera APRN Complications:: None Pre-procedure Diagnosis:: Degenerative disc disease lumbar spine with lumbar radiculopathy symptoms Post-procedure Diagnosis:: Same Indications for Procedure:: Patient is a 68-year-old white male who presents today for intrathecal pain pump adjustment. He is being treated for low back pain with lumbar radiculopathy symptoms. Patient is managed with his intrathecal therapy through home refill [facility] [employer]. Patient rates his pain a 3 out of 10 today. He would like an increase, however. He does say that he is having increased pain to his low back. He is currently managed with bupivacaine at 3.5 mg/day. He does report to get head fogginess with bupivacaine . Patient I did discuss that this is a numbing agent only and should not be causing any type of head fogginess. Patient says that it has, indeed given him head fogginess in the past and he would like to slowly increase his dose. We will increase him today to 3.75 mg/day. We will see him back as needed. He does not want to return to the clinic unless he is having complications. He says he will follow-up with his nurse in the home. Patient's Leeroy and urine drug screens have been appropriate. Physical exam General: Alert and oriented x3, no acute distress, pleasant and cooperative, [on room air] Lungs: Respirations even and unlabored, symmetrical chest expansion Eyes: PERRL Musculoskeletal: Flexion and extension of lumbar spine somewhat guarded secondary to pain, deep tendon reflexes normal, strength in upper and lower extremities [5/5], [abnormal gait noted] Neurological: Speech clear, client service associate equal, no gross sensory deficit Procedure Details:: Informed consent was obtained and the risk and benefits of the procedure were explained to the patient. Patient was taken to the procedure room where noninvasive monitoring was placed including noninvasive blood pressure cuff and pulse oximeter. Patient's pump was interrogated and was reprogrammed to bupivacaine at 3.75 mg/day. The patient tolerated the procedure well with no complications. Plan and Disposition:: Patient was increased today. We will follow-up with him as needed. He has been instructed to contact clinic if he has any concerns before his next appointment. The patient and I specifically discussed risk factors for COVID19. These risks include, but are not limited to age greater than 60, heart or lung disease, diabetes, immunosuppression, and travel. We also discussed NSAIDs may worsen COVID19 infection or symptoms. Patient should not use NSAIDs to treat COVID19 signs or symptoms. Patient was also informed that any type of corticosteroid of any form (oral or injection) will decrease the patient's immune system response and may increase the likelihood of COVID19 infection [address] symptoms[address] Dr. Hyman has reviewed this note and agrees with this plan of care. This note was dictated using voice recognition software and make contain errors or omissions.
[2019-09-22 11:31] VITALS: BP 118/74; PULSE 73; RESP 18; O2SAT 98; BMI 32.0
== END ==
PROVIDERS: PCP Family Medicine; Visit Provider Clinical Nurse Specialist Family Health
DX: M51.16 Intervertebral disc disorders with radiculopathy, lumbar region (principal); Z96.82 Presence of neurostimulator; Z97.8 Presence of other specified devices
CPT/HCPCS: 62368

== ENCOUNTER 2019-12-28 20:16 | Emergency (ER) | payer MEDICARE, MEDICAID, SELFPAY ==
[2019-12-28 20:30] VITALS: BP 120/70; PULSE 82; RESP 16; TEMP 36.6; O2SAT 98
--- NOTE | 2019-12-28 20:43 | PC.NURSE ---
pt was not bleeding at time of arrival and opted out of being triaged or seen. refused care of patient.
== END 2019-12-28 20:30 | disposition left against medical advice (07) ==
LOC: ER 20:42
PROVIDERS: Emergency Provider Student in an Organized Health Care Education/Training Program; PCP Family Medicine
DX: Z53.21 Procedure and treatment not carried out due to patient leaving prior to being seen by health care provider (principal)
CPT/HCPCS: G0463; 99211

== ENCOUNTER → 2020-03-26 09:12 | Outpatient (CLI) | payer MEDICARE, MEDICAID, SELFPAY ==
--- NOTE | 2020-03-26 09:26 | ECG_ITS ---
APPROVED REPORT Exam: Resting ECG HR:75 bpm ECG Measurements Heart Rate 75 AXES NJ 176 P 57 QRSd 92 QRS -26 QT 368 T 39 QTc 410 Conclusion Normal sinus rhythm Normal ECG Electronically signed by : Zeeshan Vences, 03/26/2020 18:01:25
== END ==
PROVIDERS: PCP Family Medicine; Visit Provider Family Medicine
DX: R06.02 Shortness of breath (principal); R53.83 Other fatigue
CPT/HCPCS: 93005

== ENCOUNTER → 2020-03-29 06:36 | Outpatient (CLI) | payer MEDICARE, MEDICAID, SELFPAY ==
--- NOTE | 2020-03-29 | CA_ITS ---
APPROVED REPORT Exam: Exercise Treadmill Technologist: Mary Anne Almaguer Ht: 6 ft 4 in Wt: 275 lbs BSA: 2.54 m2 HR: 74 bpm BP: 136/80 mmHg Indications: ShortneDD OF AIR, CHEST PAIN Stress Test Details Test: Aamir HR Resting HR: 81 bpm Max Heart Rate (APMHR): 149 bpm Max HR Achieved: 128 bpm Target HR (85% APMHR): 126 bpm % of APMHR: 85 Recovery HR: 81 bpm BP Resting BP: 136.0/80.0 mmHg Max BP: 185.0/96.0 mmHg Recovery BP: 155.0/92.0 mmHg ECG Resting ECG: Sinus rhythm Clinical Exercise duration: 05:29 min Highest Stage Achieved: Exercise capacity: 7.0 METs Stress ECG Conclusion Aamir Protocol completed. Patient exercised 5:29. Test stopped due to shortness of breath. Mets: 7.0 Maximum blood pressure: 185/76 Maximum heart rate: 128 bpm Symptoms: Shortness of breath during peak exercise, resolved in recovery. No chest pain. Arrhythmias/Ectopy: No ectopy. ST-T Changes: Less than 1.[address] depression. Conclusion: Images to follow. Test Summary REST . . . . . . . Resting REST 01:37 0.0 0.0 81 . . . . Stage 1 01:00 10.0 1.7 97 . . . . Stage 1 02:00 10.0 1.7 107 . . . . Stage 1 03:00 10.0 1.7 113 . 140/ 89 . . Stage 2 01:00 12.0 2.5 118 . . . . Stage 2 . . . . . . . Myoview Injected Stage 2 02:00 12.0 2.5 124 . . . . Stage 2 02:29 12.0 2.5 127 . . . Stop exercise at 05:29 RECOVERY 01:00 0.0 0.0 113 . 180/ 90 . . RECOVERY 02:00 0.0 0.0 89 . 180/ 90 . . RECOVERY 03:00 0.0 0.0 84 . 185/ 96 . . RECOVERY 04:00 0.0 0.0 84 . 169/ 97 . . RECOVERY 04:45 0.0 0.0 83 . 155/ 92 . . Electronically signed by : Nicolas Hassan, 03/30/2020 06:03:09
--- NOTE | 2020-03-29 07:05 | NM_ITS ---
APPROVED REPORT Exam: Nuclear Stress Test Indication: SOB, Fatigue, HTN, Family history Patient Location: Outpatient Stress Tech: Mary Anne Almaguer MT Tech:Kathy Duarte, ARRT, RT (R)(N) Ht: 6 ft 5 in Wt: 275 lbs HR: 74 bpm BP: 136/80 mmHg BSA: 2.56 m2 BMI: 32.6 History: SOB, Fatigue, HTN, Family history Procedure: Patient exercised on Aamir protocol 5:29 minutes and sec, resting heart rate 74 bpm, resting blood pressure 136/80 mmHg, with exercise maximum heart rate achived was 128 bpm which is 86 % of the maximum predicted heart rate and blood pressure was 185/96 mmHg. Test was stopped due to SOB. Patient denied any complaint of chest pain. Patient has Adequate exercise capacity, achieved 7.0 METs of workload on treadmill, the blood pressure response to exercise was Adequate. Electrocardiogram Resting electrocardiogram showed sinus rhythm, with exercise there is less than 1.[address] segment depression noted from the baseline EKG. The EKG portion of the exercise Myoview is negative for ischemia. Cardiac Stress and Resting SPECT Images: Cardiac Stress and Resting SPECT images were obtained using technetium 99m Myoview 31.2 mCi stress and 10.39 mCi at rest. Gated SPECT for analysis of segmental wall motion and calculation of the ejection fraction also done. Prone images were also obtained. Cardiac stress and resting SPECT images show uniform myocardial activity without segmental perfusion abnormality, computer derived ejection fraction is 57% with no regional wall motion abnormality, right ventricle is normal size and contractility. Conclusion: 1. The EKG portion of the exercise Myoview is negative for ischemia, patient has adequate exercise capacity achieved 7 mets of workload on treadmill, the blood pressure response to exercise was adequate, there was no exercise-induced chest discomfort. 2. No scintigraphic evidence of reversible ischemia seen, computer derived ejection fraction is 57% with no regional wall motion abnormality, right ventricle is normal size and contractility. 3. Normal exercise Myoview study. Electronically signed by : Nicolas Hassan, 03/30/2020 06:14:37
--- NOTE | 2020-03-29 09:01 | HMH.ITSHM ---
Current Home Medications as stated by this patient Haile Clancy or risk control representative. []ZINC TIOTROPIUM SPIRONOLACONE LYRICA POTASSIUM OMEPRAZOLE MELOXICAM LOSARTAN VITMAIN D3 ALLOPRINOL
== END ==
PROVIDERS: PCP Family Medicine; Visit Provider Family Medicine
DX: R06.02 Shortness of breath (principal); R53.83 Other fatigue
CPT/HCPCS: 78452; 93017; A9502

== ENCOUNTER → 2020-06-21 08:18 | Outpatient (POV) | payer MEDICARE, MEDICAID, SELFPAY ==
[2020-06-21 08:33] VITALS: BP 126/81; PULSE 81; RESP 18; TEMP 36.8; O2SAT 98; BMI 32.0
--- NOTE | 2020-06-21 08:37 | HMH.PMPROC ---
- Procedure Date: 06/21/20 Time: 08:38 Anesthesiologist:: Jackie Denney APRN Complications:: None Pre-procedure Diagnosis:: Degenerative disc disease lumbar spine lumbar radiculopathy symptoms, back pain Post-procedure Diagnosis:: Same Indications for Procedure:: Patient is a pleasant 69-year-old white male who presents today for intrathecal pain pump adjustment. He rates his pain a 4 out of 10. He states that he is having some times of extreme numbness. Patient is currently on bupivacaine pump going at multiple rates. Patient states that he was doing quite well just until recently. He would like to discontinue his 3-7 o'clock rate. We will make those adjustments for him today. He does have home refill. Procedure Details:: Informed consent was obtained and the risk and benefits of the procedure were explained to the patient. The patient was taken to the procedure room where noninvasive monitoring was placed including noninvasive blood pressure cuff and pulse oximeter. Patient's pump was interrogated and reprogrammed. The infusion rate was changed to 3.5 mg of bupivacaine between seven and 190o and 4.5 mg of bupivacaine between 1900-7. The patient tolerated the procedure well. Plan and Disposition:: Patient will continue home refill he has been instructed to call the office if he has any issues. Dr. Hyman has reviewed this note and agrees with this plan of care. This note was dictated using voice recognition software and may contain errors or omissions
--- NOTE | 2020-09-08 14:21 | PC.NURSE ---
called in RX for robaxin 500mg TID with 2 refills per md order.
== END ==
PROVIDERS: PCP Family Medicine; Visit Provider Clinical Nurse Specialist Family Health
DX: M51.16 Intervertebral disc disorders with radiculopathy, lumbar region (principal); Z45.1 Encounter for adjustment and management of infusion pump
CPT/HCPCS: 62368

== ENCOUNTER → 2020-10-04 14:01 | Outpatient (CLI) | payer MEDICARE, MEDICAID, SELFPAY ==
--- NOTE | 2020-10-04 14:04 | XR_ITS ---
PROCEDURE: XR HIP LT 2-3V W/PELVIS CLINICAL INDICATION: LT HIP PAIN COMPARISON: No exams were available for comparison FINDINGS: There are [id number] osteoarthritic changes of the left hip with loss of joint space and osteosclerosis superiorly with small osteophytes of the inferior aspect of the acetabulum. No fracture or dislocation. No lytic or blastic change. Sacral neurostimulator wires are noted that appear disconnected in the left L5-S1 area. Facet arthritic changes are present on the left at L5-S1. Pain pump device noted over the left sacral area. Additional neurostimulator device at the right lower lumbar region. IMPRESSION: Mild to moderate osteoarthritic change of the left hip Dictated by: Xavier Ambriz MD 10/04/2020 15:36 Xavier Ambriz MD in [place] 10/04/2020 15:36
== END ==
PROVIDERS: PCP Family Medicine; Visit Provider Family Medicine
DX: M25.552 Pain in left hip (principal)
CPT/HCPCS: 73502

== ENCOUNTER → 2020-10-18 11:30 | Outpatient (POV) | payer MEDICARE, MEDICAID, SELFPAY ==
[2020-10-18 11:44] VITALS: BP 141/77; PULSE 80; RESP 18; O2SAT 96; BMI 32.0
--- NOTE | 2020-10-18 12:09 | HMH.PAINSOAP ---
[facility] Pain Management SOAP Note Subjective:: Patient is a pleasant 70-year-old white male who presents today for follow-up for worsening left buttock and left hip pain. Patient says that his pain started in his left hip after riding on a tractor for prolonged period. He says the pain started approximately 1 month ago. The pain is progressively worsened and is now radiating into his left groin. The pain is worse with standing and walking with a notable antalgic gait today. He does rate his pain a 6 out of 10 today. He has tried anti-inflammatories and home stretching at home with no significant relief. Review of Systems General: No recent weight changes, no fever, no sleep disturbances Respiratory: No cough, no shortness of air, no recurring pulmonary infections Cardiovascular/peripheral vascular: No chest pain, no palpitations, no edema, no shortness of breath Gastrointestinal: No new onset incontinence, normal bowel movements reported Genitourinary: No new onset incontinence Musculoskeletal: Left hip pain, left groin pain, left buttock pain Psychiatric: [Normal mood/affect] Neurological: [Denies weakness in extremities], [denies balance issues] Objective:: Physical exam General: Alert and oriented x3, no acute distress, pleasant and cooperative, [on room air] Lungs: Respirations even and unlabored, symmetrical chest expansion Eyes: PERRL Musculoskeletal: Flexion and extension of [] lumbar [spine] somewhat guarded secondary to pain, strength in upper and lower extremities [5/5], [antalgic gait noted], positiv Yocasta's test, positive compression test, positive distraction test Neurological: Speech clear, [cannon fire direction specialist equal], no gross sensory deficit Assessment:: Sacroiliitis left, trochanteric bursitis left, Plan:: We will schedule patient for left SI joint injection as well as a left trochanteric bursa injection. We will plan to see the patient back in the clinic after the injections for reevaluation of symptoms. He does have a positive Yocasta's, compression, distraction test today. He is tender to palpation to his left SI joint as well as his left trochanteric bursa. We will see him back after the injection. Risks and benefits of the procedure have been explained to the patient. Patient would like to proceed with the procedure. Possible side effects of corticosteroids have been discussed with the patient. Patient has been instructed to contact the clinic with any concerns before the next appointment. Dr. Hyman has reviewed this note and agrees with this plan of care. This note was dictated using voice recognition software and make contain errors or omissions. [facility] History I have reviewed the patient's past medical history: Yes Medical History: Reports:: Chronic Obstructive Pulmonary Disease (COPD), Gastroesophageal Reflux Disease(GERD), Hypertension, Lung Disease (copd) Denies:: Cancer, Diabetes Mellitus Type 1, Diabetes Mellitus Type 2, Internal Pacemaker, MRSA, Seizures *Have you ever received a pneumonia vaccine?: Yes *Have you received a flu vaccine this season?: No Other Medical History: Denies: Blood Transfusion Reaction (N/A) Laterality Cases: Right: Arthroscopy Knee, Bilateral: Carpal Tunnel Release Other Surgeries: Yes: Colonoscopy, Other (Back sx). No: Pacemaker Amputation: No Fractures: Yes (back) - *Social History Smoking Status: Former smoker Tobacco Type: cigarettes # Packs/Day (cigarettes): 0 Alcohol Intake: never *Occupational Status:: unemployed Housing: house Household Members: spouse *Travel in the last 8 weeks: None Family Hx:: Cancer, Hypertension
== END ==
PROVIDERS: PCP Family Medicine; Visit Provider Clinical Nurse Specialist Family Health
DX: M46.1 Sacroiliitis, not elsewhere classified (principal); M70.62 Trochanteric bursitis, left hip
CPT/HCPCS: 99212; G0463

== ENCOUNTER → 2020-10-21 08:02 | Day surgery (SDC) | payer MEDICARE, MEDICAID, SELFPAY ==
[2020-10-21 08:20] VITALS: BMI 32.0
[2020-10-21 08:25] VITALS: BP 111/76; BP 113/74; PULSE 71; PULSE 72; RESP 18; O2SAT 94; O2SAT 95
--- NOTE | 2020-10-21 08:46 | HMH.PMPROC ---
- Procedure Date: 10/21/20 Time: 08:46 Anesthesiologist:: Jenna Rivera APRN Complications:: None Pre-procedure Diagnosis:: Left sacroiliitis, left trochanteric bursitis Post-procedure Diagnosis:: Same Indications for Procedure:: Patient is a pleasant 70-year-old white male who presents today for complaints of left low back pain with left hip pain. He says the pain is radiating into his left thigh stopping at the knee. His pain is an 8 or 9 out of 10. He does have an antalgic gait today. He says that the pain is worse with standing and walking and improves somewhat with sitting. He does have a positive Yocasta's, compression, distraction test with tenderness to his left SI joint and left trochanteric bursa. We will perform a left SI injection (third bursa injection today to see if the patient gets relief. Risks and benefits of the procedure have been explained to the patient. Patient would like to proceed with the procedure. Possible side effects of corticosteroids have been discussed with the patient. Physical exam General: Alert and oriented x3, no acute distress, pleasant and cooperative, [on room air] Lungs: Respirations even and unlabored, symmetrical chest expansion Eyes: PERRL Musculoskeletal: Flexion and extension of [] lumbar [spine] somewhat guarded secondary to pain, strength in upper and lower extremities [5/5], [antalgic gait noted], positive Yocasta's test, positive compression test, positive distraction test Neurological: Speech clear, [infection control nurse equal], no gross sensory deficit Procedure Details:: Informed consent was obtained and the risk and benefits of the procedure were explained to the patient. The patient was taken to the procedure room and noninvasive monitors were placed including noninvasive blood pressure cuff and pulse oximeter. The patient was placed prone on the procedure table. The left hip was cleansed using chlorhexidine as a cleansing solution. C-arm fluoroscopy was used to view the left SI joint. The skin and subcutaneous tissue were anesthetized using lidocaine 1.5% and 25-gauge needle. After this a 22-gauge spinal needle was inserted under fluoroscopic guidance into the inferior aspect of the left SI joint. Omnipaque dye was injected and good spread was seen throughout the joint. After this approximately 5 mils of bupivacaine 0.25% and Depo-Medrol 40 mg were incrementally injected into the sacroiliac joint. The patient tolerated the procedure well with no complications. We then proceeded to the left trochanteric bursa. The patient understands the risks and benefits of the procedure and wishes to proceed. The patient was seen in the preoperative area. Patient's consent was obtained and updated. Vitals were taken. Patient was then brought to the procedure suite and placed in a prone position for the injection. The appropriate anatomic area was widely prepped with ChloraPrep and draped in a sterile fashion. Noninvasive monitoring per routine anesthesia protocol was placed. Under fluoroscopic guidance using an AP view, a 22-gauge straight tip spinal needle was passed through the skin anesthetized with 1% lidocaine without epinephrine. The needle tip was guided to the left trochanteric bursa under fluoroscopy. 2 mL of Omnipaque 300 preservative-free contrast was injected into into the joint to confirm location. A clear outline was obtained. 4 mL of steroid solution containing 3 mL of 0.25% bupivacaine and 1 mL of Depo-Medrol 40 mg was injected. The patient tolerated the procedure with no complications. A sterile dressing was placed over the puncture sites. Plan and Disposition:: We will see the patient back in the clinic in 3 weeks for reevaluation of symptoms. Patient has been instructed to contact the clinic with any concerns before the next appointment. Dr. Hyman has reviewed this note and agrees with this plan of care. This note was dictated using voice recognition software a
== END ==
PROVIDERS: PCP Family Medicine; Visit Provider Clinical Nurse Specialist Family Health
DX: M46.1 Sacroiliitis, not elsewhere classified (principal); M70.62 Trochanteric bursitis, left hip; I10 Essential (primary) hypertension; J44.9 Chronic obstructive pulmonary disease, unspecified; K21.9 Gastro-esophageal reflux disease without esophagitis; E66.9 Obesity, unspecified; Z68.32 Body mass index [BMI] 32.0-32.9, adult; Z87.891 Personal history of nicotine dependence
CPT/HCPCS: 20610; 27096; 77002; G0260; J1030; Q9966

== ENCOUNTER → 2020-11-11 08:57 | Outpatient (POV) | payer MEDICARE, MEDICAID, SELFPAY ==
[2020-11-11 09:05] VITALS: BP 128/85; PULSE 74; RESP 18; O2SAT 96; BMI 32.0
--- NOTE | 2020-11-11 09:15 | HMH.PAINSOAP ---
[facility] Pain Management SOAP Note Subjective:: Patient is a 70-year-old white male who presents today for follow-up. The patient is following up after a left SI injection and left hip enteric bursa injection. Patient is having pain in his left low back area with radiation into his left buttock and left groin. The patient also says he has pain in his left anterior thigh area. He rates his pain a 6 out of 10. The pain is worse when he is moving, with standing or walking. The pain does improve when he lies down. At the end of the day, he says his pain is at its worse. Patient does have an intrathecal pain pump as well as a spinal cord stimulator. He has had a DRG in the past with the device removed leads still in place. Patient says he got about 50% relief with his last injections. He was much more functional for about 2 weeks. His pain is slowly returning. The patient I did discuss today that he may be an appropriate candidate for corner lock procedure. Patient would like to undergo repeat injections to the left SI joint and left trochanteric bursa. He is continue with home stretching and anti-inflammatories. Review of Systems General: No recent weight changes, no fever, no sleep disturbances Respiratory: No cough, no shortness of air, no recurring pulmonary infections Cardiovascular/peripheral vascular: No chest pain, no palpitations, no edema, no shortness of breath Gastrointestinal: No new onset incontinence, normal bowel movements reported Genitourinary: No new onset incontinence Musculoskeletal: Left low back pain with radiation into left hip, left buttock, left anterior thigh Psychiatric: [Normal mood/affect] Neurological: [Denies weakness in extremities], [denies balance issues] Objective:: Physical exam General: Alert and oriented x3, no acute distress, pleasant and cooperative, [on room air] Lungs: Respirations even and unlabored, symmetrical chest expansion Eyes: PERRL Musculoskeletal: Flexion and extension of lumbar [spine] somewhat guarded secondary to pain, strength in upper and lower extremities [5/5], [antalgic gait noted], positive Yocasta's test, positive compression test, positive distraction test Neurological: Speech clear, [curing supervisor equal], no gross sensory deficit Assessment:: Sacroiliitis, left, trochanteric bursitis, left Plan:: We will plan for repeat left SI joint injection as well as a left trochanteric bursa injection. Patient does have a positive Yocasta's, compression, distraction test with tenderness to palpation to his left trochanteric bursa. The patient did get 50% relief with his last injections to these areas. He and I did discuss that he may be a possible candidate for corner lock if he continues to get significant relief with the injections. He does have a pain pump in place along with an SCS system. He previously had a DRG which has been removed, leads still in place. We will plan to follow-up with the patient after the injection for reevaluation of symptoms. He will continue with home stretching and anti-inflammatories as needed. Possible side effects of corticosteroids have been discussed with the patient. Risks and benefits of the procedure have been explained to the patient. Patient would like to proceed with the procedure. Patient has been instructed to contact the clinic with any concerns before the next appointment. Dr. Hyman has reviewed this note and agrees with this plan of care. This note was dictated using voice recognition software and make contain errors or omissions. [facility] History I have reviewed the patient's past medical history: Yes Medical History: Reports:: Chronic Obstructive Pulmonary Disease (COPD), Gastroesophageal Reflux Disease(GERD), Hypertension, Lung Disease (copd) Denies:: Cancer, Diabetes Mellitus Type 1, Diabetes Mellitus Type 2, Internal Pacemaker, MRSA, Seizures *Have you ever received a pneumonia vaccine?: Yes *Have you received a flu vaccine this seas
== END ==
PROVIDERS: PCP Family Medicine; Visit Provider Clinical Nurse Specialist Family Health
DX: M46.1 Sacroiliitis, not elsewhere classified (principal); M70.62 Trochanteric bursitis, left hip
CPT/HCPCS: 99212; G0463

== ENCOUNTER 2020-11-19 09:15 | Day surgery (SDC) | payer MEDICARE, MEDICAID, SELFPAY ==
[2020-11-19 09:18] VITALS: BP 148/82; PULSE 66; RESP 18; TEMP 36.6; O2SAT 96; BMI 32.0
[2020-11-19 09:44] VITALS: BP 138/92; PULSE 71; RESP 18; O2SAT 95
[2020-11-19 09:45] VITALS: BP 138/92; PULSE 74; RESP 18; O2SAT 94
[2020-11-19 09:55] VITALS: BP 131/84; PULSE 69; RESP 18; TEMP 36.6; O2SAT 96
--- NOTE | 2020-11-19 09:56 | P.PCN_ITS ---
- Procedure Date: 11/19/20 Time: 09:56 Anesthesiologist:: Silverio Hyman MD Complications:: None Pre-procedure Diagnosis:: Sacroiliitis and trochanteric bursitis Post-procedure Diagnosis:: Same Indications for Procedure:: Patient is a pleasant 70-year-old white male who we are treating for sacroiliitis and trochanteric bursitis. He has had a left SI joint injection left trochanteric bursa injection with 50 to 60% relief of his pain symptoms. He still has some residual pain. We will do a repeat left SI joint injection left trochanteric bursa injection again today. He does have a positive Yocasta's test on the left side. Is positive Eunice test on left side. He has positive SI joint compression test on left side. He is positive distraction test on left side. Procedure Details:: Left SI joint injection under fluoroscopy Informed consent was obtained and the risks and benefits of the procedure was explained to the patient. Patient was taken to the procedure room. Patient was placed prone on the procedure table. The left hip was prepped using ChloraPrep. The skin and subcutaneous tissues were anesthetized using lidocaine. I placed a 22-gauge spinal needle into the inferior aspect of the left SI joint. Needle placement was confirmed with dye. After this we injected 5 mL bupivacaine 0.25% and Depo-Medrol 40 mg into the left SI joint. The patient tolerated the procedure well with no complication. Left trochanteric bursa injection under fluoroscopy informed consent was obtained and the risk and benefits of the procedure was explained to the patient. The patient was taken to procedure room and placed prone on the procedure table. The left hip was prepped using ChloraPrep. The skin and subcutaneous tissues were anesthetized using lidocaine. I placed a 22- gauge spinal needle under fluoroscopic guidance and advanced until it contacted the left greater trochanter. Needle placement was confirmed with dye. After this we injected 5 mL bupivacaine 0.25% and Depo-Medrol 40 mg. Patient tolerated the procedure well with no complications. Plan and Disposition:: We will follow-up with him in 2 weeks. Will reevaluate his symptoms at that time.
== END 2020-11-19 09:40 | disposition home or self-care (01) ==
LOC: SC.PAINP 09:17
PROVIDERS: PCP Family Medicine; Visit Provider Anesthesiology
DX: M46.1 Sacroiliitis, not elsewhere classified (principal); M70.62 Trochanteric bursitis, left hip; I10 Essential (primary) hypertension; J44.9 Chronic obstructive pulmonary disease, unspecified; K21.9 Gastro-esophageal reflux disease without esophagitis; Z79.899 Other long term (current) drug therapy
CPT/HCPCS: 20610; 27096; 77002; G0260; J1040; Q9966

== ENCOUNTER → 2020-11-26 13:20 | Outpatient (CLI) | payer MEDICARE, MEDICAID, SELFPAY ==
--- NOTE | 2020-11-26 13:25 | XR_ITS ---
PROCEDURE: XR KNEE LT 4V CLINICAL INDICATION: LT knee pain COMPARISON: No exams were available for comparison FINDINGS: No fracture or dislocation. No lytic or blastic change. There is normal mineralization. Minimal osteoarthritic changes are present involving all 3 compartments. Small enthesophyte is present along both the upper and lower aspect patella Other findings:None. IMPRESSION: Mild osteoarthritic Dictated by: Xavier Ambriz MD 11/26/2020 16:07 Xavier Ambriz MD in [place] 11/26/2020 16:07
== END ==
PROVIDERS: PCP Family Medicine; Visit Provider Orthopaedic Surgery
DX: M25.562 Pain in left knee (principal)
CPT/HCPCS: 73564

== ENCOUNTER → 2021-01-14 14:14 | Outpatient (CLI) | payer MEDICARE, MEDICAID, SELFPAY ==
[2021-01-14 17:22] LABS: Creatine Kinase 328 U/L (55-170)
[2021-01-14 17:37] LABS: Intact Parathyroid Hormone 29.8 pg/mL (7.5-53.5)
[2021-01-14 21:44] LABS: Erythrocyte Sedimentation Rate 23 mm/hr (0-20)
[2021-01-24 08:53] LABS: Antinuclear Antibodies (ANA) NEGATIVE
== END ==
PROVIDERS: Visit Provider Family Medicine
DX: M62.81 Muscle weakness (generalized) (principal); I10 Essential (primary) hypertension
CPT/HCPCS: 36415; 82550; 83970; 85651; 86038; 86140

== ENCOUNTER → 2021-01-25 12:44 | Outpatient (POV) | payer MEDICARE, MEDICAID, SELFPAY ==
[2021-01-25 12:53] VITALS: BP 168/93; PULSE 89; RESP 18; O2SAT 95; BMI 32.0
--- NOTE | 2021-01-25 13:07 | HMH.PMPROC ---
- Procedure Date: 01/25/21 Time: 13:08 Anesthesiologist:: Jenna Rivera APRN Complications:: None Pre-procedure Diagnosis:: Degenerative disc disease lumbar spine with lumbar radiculopathy symptoms, sacroiliitis, trochanteric bursitis, peripheral neuropathy Post-procedure Diagnosis:: Same Indications for Procedure:: Patient is a 70-year-old white male who presents today for intrathecal pain pump adjustment. He is following up after an SI and trochanteric bursa injection on the left side. He says that he got significant relief with the injections, however, the patient is complaining of severe numbness and tingling from his knees to his feet. He is reporting to have difficulty walking due to numbness. Patient does have an intrathecal pain pump and a spinal cord stimulator in place. He has bupivacaine in his intrathecal pain pump. He is currently on multiple rates with a total daily dose of bupivacaine 8 mg/day. He is a home refill patient through [facility]. He is refill nurse was scheduled to come to the home and increase his dosing by 25%, however, due to the patient's worsening symptoms of numbness and tingling in lower extremities she did not increase the dose. He is here today to discuss his options. He recently saw his primary care provider Dr. Ravi and was told that he has elevated lab work. We did contact Dr. Ravi's office today to get lab work results. According to the notes faxed to us, the patient does have an elevated CRP at 9, ESR 23, CK at 328. Patient is having weakness in his lower extremities worse to the feet. Patient is here today to discuss options with the medication. His pain is a 3 out of 10. Today, we will decrease the bupivacaine dose to see if this helps with his numbness and tingling in his bilateral lower extremities and feet. If the patient does not get relief after decreasing his dosing, he will likely need to undergo imaging versus possible nerve conduction study lower extremities with neurology. Physical exam General: Alert and oriented x3, no acute distress, pleasant and cooperative Lungs: Respirations even and unlabored, symmetrical chest expansion Eyes: PERRL Musculoskeletal: Flexion and extension of lumbar [spine] somewhat guarded secondary to pain, [antalgic gait noted] Neurological: Speech clear, no gross sensory deficit Procedure Details:: Informed consent was obtained and the risk and benefits of the procedure were explained to the patient. Patient was taken to the procedure room where noninvasive monitoring was placed including noninvasive blood pressure cuff and pulse oximeter. Patient's pump was interrogated and was reprogrammed to bupivacaine at 7 mg/day, PTC at 0.5 mg up to 4 times daily.. The patient tolerated the procedure well with no complications. Plan and Disposition:: We will plan to follow-up with the patient in 1 week. We will see if this helps with his symptoms by decreasing his dosing of bupivacaine in the pump. He has tried morphine and Dilaudid in the intrathecal pump in the past with minimal relief. As result Dr. Hyman did place bupivacaine in his pump. We will see him back for further evaluation [address] Ravi is treating the patient for his elevated lab work. He has been advised that his abnormal labs, CK, CRP, ESR, could also contribute to weakness in lower extremities. He has been advised to contact clinic if he has any concerns for his next appointment. Patient has been instructed to contact the clinic with any concerns before the next appointment. Dr. Hyman has reviewed this note and agrees with this plan of care. This note was dictated using voice recognition software and make contain errors or omissions.
== END ==
PROVIDERS: Visit Provider Clinical Nurse Specialist Family Health
DX: M51.16 Intervertebral disc disorders with radiculopathy, lumbar region (principal); M46.1 Sacroiliitis, not elsewhere classified; G62.9 Polyneuropathy, unspecified; M70.60 Trochanteric bursitis, unspecified hip; Z45.1 Encounter for adjustment and management of infusion pump
CPT/HCPCS: 62370; 99212; G0463

== ENCOUNTER → 2021-01-31 12:50 | Outpatient (CLI) | payer MEDICARE, MEDICAID, SELFPAY | PROVIDERS: PCP Family Medicine; Visit Provider Family Medicine | DX: G47.33 Obstructive sleep apnea (adult) (pediatric) (principal); R06.83 Snoring; I10 Essential (primary) hypertension; E66.9 Obesity, unspecified; Z68.32 Body mass index [BMI] 32.0-32.9, adult | CPT/HCPCS: G0399 ==

== ENCOUNTER → 2021-02-03 12:42 | Outpatient (POV) | payer MEDICARE, MEDICAID, SELFPAY ==
[2021-02-03 12:56] VITALS: BP 137/73; PULSE 81; RESP 18; O2SAT 96; BMI 32.0
--- NOTE | 2021-02-03 13:14 | HMH.PMPROC ---
- Procedure Date: 02/03/21 Time: 13:14 Anesthesiologist:: Jenna Rivera APRN Complications:: None Pre-procedure Diagnosis:: Degenerative disc disease lumbar spine with lumbar radiculopathy symptoms, Post-procedure Diagnosis:: Same Indications for Procedure:: Patient is a 70-year-old white male who presents today for intrathecal pain pump adjustment. He was here on 01/25/2021 for complaints of worsening numbness to lower extremities. He is in [facility] home refill patient. At his last visit, the patient was complaining of numbness that was worsening to his feet. The patient was changed from multiple reds to continuous flow. He says that he likes the way the medication has been administered, but is now noticing worsening numbness from his knees to his feet bilaterally. It is worse to the right side. This has been ongoing for approximately 2 weeks. He did follow-up with his primary care provider Dr. Ravi when symptoms initially started. Lab work was obtained by Dr. Ravi. The patient was noted to have an elevated CRP, ESR, and CK. Patient says that he was started on antibiotic therapy for that. He is having severe weakness in his lower extremities. He does have a stimulator in place that prohibits him from having an MRI. He is concerned he is going to fall and hurt himself. He has not had recent imaging of his lumbar spine. The patient does take Lyrica 225 mg p.o. twice daily for neuropathic pain. Patient says that he has been on the same dose of medication with bupivacaine for long period of time and does not feel it is medication related. He is concentration of medication has not changed. He is having low back pain as well. He does rate his pain at baseline at 6 out of 10, however, it is the numbness that is most concerning. Physical exam General: Alert and oriented x3, no acute distress, pleasant and cooperative Lungs: Respirations even and unlabored, symmetrical chest expansion Eyes: PERRL Musculoskeletal: Flexion and extension of lumbar [spine] somewhat guarded secondary to pain, [antalgic gait noted] Neurological: Speech clear, no gross sensory deficit Procedure Details:: Informed consent was obtained and the risk and benefits of the procedure were explained to the patient. Patient was taken to the procedure room where noninvasive monitoring was placed including noninvasive blood pressure cuff and pulse oximeter. Patient's pump was interrogated and was reprogrammed to bupivacaine at 7 mg/day, PTC changed at 0.5 mg up to 6 times daily. The patient tolerated the procedure well with no complications. Plan and Disposition:: The patient does state boluses have not changed his symptoms in his lower extremities. He did ask for a change in dosing of the boluses today. We have increased the number of boluses but have not changed the dosing today. He has been on the same dosing of medication for a prolonged period and does not feel it is medication related. He has not followed up with Dr. Ravi concerning his lab work. I have advised him he does need to discuss the cause of his elevated CK, CRP, and ESR. We will schedule him for CT scan of his lumbar spine. We will discuss possible neurology consult next visit as well for possible nerve conduction studies if his symptoms continue and if there are no changes per his CT scan. We are unable to get an MRI because the patient does have a stimulator that is not MRI compatible. He is at a high risk for falls due to numbness from knees to bilateral feet. We will see him back immediately after CT scan to discuss further plan of care. Patient has been instructed to contact the clinic with any concerns before the next appointment. Dr. Hyman has reviewed this note and agrees with this plan of care. This note was dictated using voice recognition software and make contain errors or omissions.
== END ==
PROVIDERS: Visit Provider Clinical Nurse Specialist Family Health
DX: M51.16 Intervertebral disc disorders with radiculopathy, lumbar region (principal); Z45.1 Encounter for adjustment and management of infusion pump
CPT/HCPCS: 62368

== ENCOUNTER → 2021-02-11 10:34 | Outpatient (CLI) | payer MEDICARE, MEDICAID, SELFPAY ==
--- NOTE | 2021-02-11 10:37 | CT_ITS ---
PROCEDURE INFORMATION: Exam: CT Lumbar Spine Without Contrast Exam date and time: 02/11/2021 10:37 AM Age: 70 years old Clinical indication: Low back pain; Prior surgery; Surgery date: 6+ months; Patient HX: H/o 3 back surgery; Additional info: Back, leg pain TECHNIQUE: Imaging protocol: Computed tomography images of the lumbar spine without contrast. Radiation optimization: All CT scans at this facility use at least one of these dose optimization techniques: automated exposure control; mA and/or kV adjustment per patient size (includes targeted exams where dose is matched to clinical indication); or iterative reconstruction. 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 Hypoplastic T12 ribs. Levoconvex lumbar curvature centered at L2-L3. Mild grade 1 retrolisthesis from L1-L2 through L3-L4. Chronic compression fracture of T11 with cement augmentation. Chronic mild anterior wedging of T12 is unchanged with respect to prior MR study of 06/16/2015. Lumbar vertebral body heights are maintained, without evidence acute fracture. T11-T12: Mild bilobed disc bulging. Advanced facet osteoarthropathy. Moderate spinal canal stenosis. Moderate to severe bilateral neural foraminal narrowing. T12-L1: Bilobed disc bulging. Moderate facet arthropathy. Mild spinal canal stenosis. Moderate right and [id number] left neural foraminal narrowing. L1-L2: Mild grade 1 retrolisthesis. Circumferential disc bulging and degenerative endplate spurring. Moderate degenerative facet hypertrophy. Moderate to severe spinal canal and lateral recess stenosis, which may affect the descending L2 nerve roots. Severe left greater than right neural foraminal narrowing probable exiting nerve root impingement. L2-L3: Mild grade 1 retrolisthesis. Circumferential disc bulging and degenerative endplate spurring. Moderate facet hypertrophy and ligamentum flavum thickening. Severe spinal canal and lateral recess stenosis, with probable impingement of the descending L3 nerve roots. Severe right and moderate to severe left neural foraminal narrowing with exiting nerve root impingement. L3-L4: Mild grade 1 retrolisthesis. Circumferential disc bulging and degenerative endplate spurring. Moderate facet hypertrophy. Decompressive laminectomy. Central spinal canal appears adequately patent. However, there may be persistent high-grade lateral recess stenosis with impingement of the descending L4 nerve roots. Severe bilateral neural foraminal narrowing with exiting nerve root impingement. L4-L5: Circumferential disc bulging and degenerative endplate spurring. Moderate to severe facet hypertrophy. Decompressive laminectomy. Central spinal canal appears patent. Likely high-grade left greater than right lateral recess stenosis with impingement of the descending L5 nerve roots. Severe left greater than right neural foraminal narrowing with exiting nerve root impingement. L5-S1: Transitional level. Disc space ankylosis with hypertrophic spurring posteriorly. Left greater than right facet hypertrophy. Decompressive laminectomy, with patency of the central spinal canal. Moderate to severe left and moderate right lateral recess effacement, with impingement of the descending left S1 nerve root. Moderate to severe left greater than right neural foraminal narrowing. 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 Indeterminate 1.5 x 1.3 cm right adrenal nodule, stable since 08/03
== END ==
PROVIDERS: PCP Family Medicine; Visit Provider Clinical Nurse Specialist Family Health
DX: M54.50 Low back pain, unspecified (principal); M79.605 Pain in left leg; M79.604 Pain in right leg
CPT/HCPCS: 72131

== ENCOUNTER → 2021-02-14 11:41 | Outpatient (POV) | payer MEDICARE, MEDICAID, SELFPAY ==
[2021-02-14 11:45] VITALS: BP 159/85; PULSE 80; RESP 18; O2SAT 95; BMI 32.0
--- NOTE | 2021-02-14 12:45 | HMH.PAINSOAP ---
[facility] Pain Management SOAP Note Subjective:: Patient is a 70-year-old white male who presents today for follow-up. At last visit, the patient was sent to have a CT scan of his lumbar spine. He does have an intrathecal pain pump. He is having significant numbness and tingling into his lower extremities. He says his feet are what seem to be causing him the most distress. He is having severe numbness in his bilateral feet. He does have an intrathecal pump with bupivacaine in his pump. He is on multiple rates. The dosage has not changed, but his symptoms have changed somewhat. He says that the numbness and tingling is not medication related. We did send him for CT scan and he is here today for discussion. He rates his pain a 3 out of 10 at this time. Patient says his numbness is worse to the right side. He does have progressing numbness that is now going from the knees down. He did have lab work obtained by Dr. Ravi which she did know him to have an elevated CRP, ESR, and CK. He was started on antibiotic therapy by Dr. Ravi for elevated levels. He is having severe weakness in his lower extremities he does have a spinal cord stimulator in place. Unfortunately he is unable to undergo an MRI due to the stimulator. He is concerned of falls. He does take Lyrica 225 mg 1 tablet p.o. twice daily as well for neuropathic pain. Review of Systems General: No recent weight changes, no fever, no sleep disturbances Respiratory: No cough, no shortness of air, no recurring pulmonary infections Cardiovascular/peripheral vascular: No chest pain, no palpitations, no edema, no shortness of breath Gastrointestinal: No new onset incontinence, normal bowel movements reported Genitourinary: No new onset incontinence Musculoskeletal: Bilateral foot numbness, progression of numbness from knee down to feet, worse to right side Psychiatric: [Normal mood/affect] Neurological: Weakness bilateral lower extremities Objective:: Physical exam General: Alert and oriented x3, no acute distress, pleasant and cooperative Lungs: Respirations even and unlabored, symmetrical chest expansion Eyes: PERRL Musculoskeletal: Flexion and extension of lumbar [spine] somewhat guarded secondary to pain, [antalgic gait noted] Neurological: Speech clear, no gross sensory deficit Assessment:: Degenerative disc disease lumbar spine with lumbar radiculopathy symptoms, facet arthropathy, spinal stenosis with neurogenic claudication symptoms Plan:: Patient did have extensive pathology per his MRI report he has had surgical intervention by Dr. Bello in the past. Given the symptoms of his CT scan, we will refer the patient back to Dr. Bello for neurosurgical evaluation. 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 We will refer the patient to general surgery at [facility]. After contacting the general surgeon's office, they have advised us we will need ultrasound of gallbladder before they will schedule the patient. We will schedule him for an ultrasound of his gallbladder. We will plan to see him back in the clinic after his consultation with Dr. Bello. He can contact clinic if he has any concerns before bradycardia his next appointment. Patient has been instructed to contact the clinic with any concerns before the next appointment. Dr. Hyman has reviewed this note and agrees with this plan of care. This note was dictated using voice recognition software and make contain errors or omissions. [facility] History I have reviewed the patient's past medical history: Yes Medical History: Reports:: Chronic Obstructive Pulmonary Disease (COPD), Gastroesophageal Reflux Disease(GERD), Hypertension, Lung Disease (copd) Denies:: Cancer, Diabetes Mellitus Type 1, Diabetes Mellitus Type 2, Internal Pacemaker, MRSA, Seizures *Have you ever received a pneumonia vaccine?: Yes *Have you r
== END ==
PROVIDERS: Visit Provider Clinical Nurse Specialist Family Health
DX: M51.16 Intervertebral disc disorders with radiculopathy, lumbar region (principal); M54.06 Panniculitis affecting regions of neck and back, lumbar region; M48.062 Spinal stenosis, lumbar region with neurogenic claudication
CPT/HCPCS: 99212; G0463

== ENCOUNTER → 2021-02-18 07:35 | Outpatient (CLI) | payer MEDICARE, MEDICAID, SELFPAY ==
--- NOTE | 2021-02-18 07:38 | US_ITS ---
PROCEDURE: US GALLBLADDER CLINICAL INDICATION: RUQ PAIN, ABN CT COMPARISON: CT ABDPELWO CT abdomen pelvis wo con from 08/20/[address] LUMBAR SPINE WO CON from 02/11/2021 FINDINGS: Pancreas: Pancreas is poorly demonstrated. Liver: Diffuse increased echogenicity of the liver with poor through transmission of sound consistent with hepatic steatosis. No focal liver lesion demonstrated. Right kidney: Cortical thinning of the right kidney. No hydronephrosis. Gallbladder: Calcified gallbladder wall. This makes the detection of gallstones very limited. Common bile duct is normal at 4 mm. No pericholecystic fluid evident anteriorly. IMPRESSION: Calcified gallbladder wall. Cannot adequately assess for gallstones secondary to the calcified wall. Fatty liver Poor demonstration of the pancreas Dictated by: Xavier Ambriz MD 02/18/2021 18:05 Xavier Ambriz MD in [place] 02/18/2021 18:05
== END ==
PROVIDERS: PCP Family Medicine; Visit Provider Clinical Nurse Specialist Family Health
DX: R10.11 Right upper quadrant pain (principal); R93.89 Abnormal findings on diagnostic imaging of other specified body structures
CPT/HCPCS: 76705

== ENCOUNTER → 2021-03-07 09:46 | Outpatient (CLI) | payer MEDICARE, MEDICAID, SELFPAY ==
--- NOTE | 2021-03-07 10:31 | ECG_ITS ---
APPROVED REPORT Exam: Resting ECG HR:74 bpm ECG Measurements Heart Rate 74 AXES WI 160 P 56 QRSd 106 QRS -35 QT 364 T 64 QTc 404 Conclusion Normal sinus rhythm Left axis deviation Abnormal ECG Electronically signed by : Zeeshan Vences MD 03/07/2021 21:33:36
[2021-03-07 10:46] LABS: Basophils # 0.2 K/mm3 (0-0.2); Eosinophils # 0.3 K/mm3 (0.0-0.4); Eosinophils % 4.4 % (0.1-12.0); Hemoglobin 14.6 g/dL (14.1-18.0); Lymphocytes # 1.3 K/mm3 (0.7-4.5); Lymphocytes % 18.8 % (10-50); Mean Corpuscular HGB Conc 32.3 g/dL (31.8-35.4); Mean Corpuscular Hemoglobin 31.3 pg (27.0-31.2); Mean Corpuscular Volume 96.8 fl (80-94); Mean Platelet Volume 8.3 fl (7.4-10.4); Monocytes # 0.3 K/mm3 (0.1-1.0); Monocytes % 4.4 % (1.7-9.3); Neutrophils # 4.9 K/mm3 (1.8-7.8); Neutrophils % 69.4 % (37.0-80.0); Platelet Count 296 K/mm3 (142-424); Red Blood Count 4.65 M/mm3 (4.60-6.20); Red Cell Distribution Width 13.5 % (11.5-17.5); White Blood Count 7.1 K/mm3 (4.8-10.8)
[2021-03-07 11:21] LABS: Alanine Aminotransferase 28 U/L (12-78); Albumin Level 4.4 g/dl (3.5-5.0); Albumin/Globulin Ratio 1.6 (1.1-1.8); Alkaline Phosphatase 76 U/L (38-126); Anion Gap 12.8 mEq/L (5-15); Aspartate Amino Transferase 36 U/L (17-59); Bilirubin,Total 0.4 mg/dl (0.2-1.3); Blood Urea Nitrogen 29 mg/dl (9-20); Calcium 9.7 mg/dl (8.4-10.2); Carbon Dioxide 28 mmol/L (22.0-30.0); Chloride 102 mmol/L (98-107); Estimated Glomerular Filt Rate 50 ml/min (>60); GFR (African American) 60 ML/MIN (>60); Globulin 2.7 g/dL (1.3-3.2); Glucose 108 mg/dl (74-100); Potassium 4.8 mmoL/L (3.5-5.1); Sodium 138 mmol/L (136-145); Total Protein,Serum 7.1 g/dl (6.3-8.2)
== END ==
PROVIDERS: Visit Provider Surgery
DX: K82.9 Disease of gallbladder, unspecified (principal); Z01.812 Encounter for preprocedural laboratory examination; Z11.52 Encounter for screening for COVID-19
CPT/HCPCS: 36415; 80053; 85025; 93005; C9803; U0003; U0005

== ENCOUNTER 2021-03-08 09:28 | Day surgery (SDC) | payer MEDICARE, MEDICAID, SELFPAY ==
[2021-03-01 13:35] VITALS: BMI 32.0
[2021-03-08] VITALS (11 sets, daily range): BP systolic 108–147; BP diastolic 69–93; PULSE 74–100; RESP 18; TEMP 36.3–43; O2SAT 90–98
--- NOTE | 2021-03-08 12:55 | P.PN_ITS ---
[facility] Anesthesia Checklist - Patient Identification Patient Identification: Arm Band, Verbal (Name & ) - Structural Data Admitted From: Home Planned Operative Procedure/s: Laparascopic Cholecystectomy Consent for Planned Operative Procedure(s) Verified: Yes Verified Documents: Surgical Consent - NPO Status Verified Time NPO: 00:00 - Chart Verification Results Verified: BMP - Additional verifications Anesthesia Reactions: No Hx Blood Transfusions: No Blood Transfusion Reaction: No - Airway Assessment C-Spine Mobility Assessed: Yes TMJ Mobility Assessed: Yes Dentition: Good Dentition - Neurological Assessment Level of Consciousness: Awake, Alert, Appropriate - Anesthesia Plan Anesthesia Risk discussed: Yes ASA Class: III Anesthesia Type: General [facility] History Medical History: Reports:: BPH, Chronic Obstructive Pulmonary Disease (COPD), Gastroesophageal Reflux Disease(GERD), Hypertension, Lung Disease Denies:: Cancer, Diabetes Mellitus Type 1, Diabetes Mellitus Type 2, Internal Pacemaker, MRSA, Seizures *Have you ever received a pneumonia vaccine?: Yes *Have you received a flu vaccine this season?: Yes Other Medical History: Reports: Arthritis, Sinus Problems, Other. Denies: Blood Transfusion Reaction Anesthesia experience/problems:: none Laterality Cases: Right: Arthroscopy Knee, Bilateral: Carpal Tunnel Release Other Surgeries: Yes: Colonoscopy, Other (Back sx). No: Pacemaker Amputation: No Fractures: Yes (back) - *Social History Last grade of school completed: High school graduate Smoking Status: Former smoker Tobacco Type: cigarettes # Packs/Day (cigarettes): 0 Alcohol Intake: never Substance Use Type: denies use *Occupational Status:: retired Housing: house Household Members: spouse *Travel in the last 8 weeks: None Family Hx:: Hypertension, Cancer
--- NOTE | 2021-03-08 13:58 | HMH.OPNOTE ---
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 He has a history of prior back injury and has pain in his legs. He actually does have a pain pump and stimulator. He was undergoing routine lumbar films and was found to have findings of porcelain gallbladder . It was recommended he undergo surgical consultation due to the potential for malignant transformation. Patient did undergo gallbladder ultrasound on 02/18/2021. This revealed calcified gallbladder wall with fatty liver. Assessment for stones was difficult due to the calcification of the gallbladder wall. Patient does take omeprazole for reflux. He was seen as a surgical consultation. Given the potential for underlying malignancy, despite questionable symptoms, it was recommended he undergo cholecystectomy. It was explained to the patient if final pathology revealed malignancy he could require additional surgery. Operative findings:: Patient had very thickened gallbladder with stone impacted at high in the fundus and stone impacted in the neck of the gallbladder. There was very thick sludge characterized as light brown semisolid filling the gallbladder. Operative note:: Consent was obtained and patient was taken to the operating room. He was positioned in supine position. General anesthesia was induced via endotracheal tube. Abdomen was prepped and draped in the standard surgical fashion. Subumbilical skin incision was made and while performing abdominal wall lift Veress needle was inserted. CO2 pneumoperitoneum was achieved to 15 mmHg. 11 mm optical trocar was inserted at the umbilicus. Intraperitoneal contents were visualized. He was positioned in reverse Trendelenburg left side down. A couple 5 mm trochars were inserted in the right upper abdomen. 11 mm trocar was inserted in the epigastrium. He had a very thick generous fatty omentum which was covering the liver. This was swept inferiorly to expose the liver. He had fatty liver. Gallbladder was identified. It was very firm and hard in the fundus of the gallbladder. There also appeared to be a stone in the neck of the gallbladder. Both of these were rather large. Mid body of the gallbladder was distended but softer. Laparoscopic needle aspirator was inserted in the mid body of the gallbladder and very thick semisolid sludge, light brown in color, was aspirated from the gallbladder. This allowed the gallbladder to be grasped retracted anteriorly. The infundibulum of the gallbladder could not be grasped due to large stone impacted in the neck of the gallbladder. But just proximal to the gallbladder it was able to be grasped which allowed the infundibulum the gallbladder to be retracted anterior laterally. Blunt dissection was carried out the neck of the gallbladder bluntly incising the visceral peritoneum. Ultimately with careful dissection the cystic duct was clearly identified. It did appear as though the cystic artery was likely possibly adjacent to the cystic duct. Cystic duct was multiply clipped and sharply divided. Cystic artery was carefully coagulated with MetaCure ultrasonic robotic allyson and divided. The gallbladder was dissected free from the liver in a retrograde fashion using BRENNAN ultrasonic harmonic allyson. Gallbladder was placed within an Endo Catch retrieval device and removed from the peritoneal cavity via the umbilical trocar site which required some extension of the fascial and skin incisions for delivery of the large gallbladder with multiple large stones. CO2 pneumo peritoneum was reestablished. There was some use of electrocautery on the gallbladder fossa for good hemostasis. There appeared to be good hemostasis. Jose Juan
--- NOTE | 2021-03-08 14:07 | P.PN_ITS ---
[facility] Anesthesia Record Part I Intake, IV Amount: 1,000 Estimated blood loss (mL): 30 Urine output (mL): 0 Blood Pressure: 112/75 SaO2: 92 Pulse Rate: 99 Respiratory Rate: 18 Temperature: 97.6 F Patient is:: Drowsy Stable to PACU at:: 14:00
--- NOTE | 2021-03-09 13:00 | P.PN_ITS ---
[facility] Anesthesia Record Part II Discharge Time: 14:30 Destination: Surgical Day Care (OP Surgery) PACU nurse assessment reviewed?: Yes Patient Condition:: Good Anesthesia Complications:: None Swallowing reflex intact?: Yes Cyanosis?: No Blood Pressure: 147/89 Pulse Rate: 80 Temperature: 97.6 F Mental Status: Alert & Oriented Pain level:: 0 Nausea and/or vomitting:: None Intake, IV Amount: 0
[2021-03-09 13:01] VITALS: BP 147/89; PULSE 80; TEMP 36.4
== END 2021-03-08 15:06 | disposition home or self-care (01) ==
LOC: OR 09:30
PROVIDERS: PCP Family Medicine; Visit Provider Surgery
PROC: 0FT44ZZ Resection of Gallbladder, Percutaneous Endoscopic Approach (ICD-10-PCS; CPT 47562; principal; 2021-03-08 11:15)
DX: K82.8 Other specified diseases of gallbladder (principal); K76.0 Fatty (change of) liver, not elsewhere classified; N40.0 Benign prostatic hyperplasia without lower urinary tract symptoms; J44.9 Chronic obstructive pulmonary disease, unspecified; K21.9 Gastro-esophageal reflux disease without esophagitis; I10 Essential (primary) hypertension; J98.4 Other disorders of lung; M19.90 Unspecified osteoarthritis, unspecified site; Z79.899 Other long term (current) drug therapy; Z87.891 Personal history of nicotine dependence; Z80.9 Family history of malignant neoplasm, unspecified; Z82.49 Family history of ischemic heart disease and other diseases of the circulatory system
CPT/HCPCS: 47562; 88304; 96374; J2405; J2710

== ENCOUNTER → 2021-04-12 10:47 | Outpatient (CLI) | payer MEDICARE, MEDICAID, SELFPAY ==
[2021-04-12 19:18] LABS: Prostate Specific Ag Screen 2.5 ng/ml (0.0-4.0)
== END ==
PROVIDERS: PCP Family Medicine; Visit Provider Urology
DX: Z12.5 Encounter for screening for malignant neoplasm of prostate (principal)
CPT/HCPCS: 36415; G0103

== ENCOUNTER → 2021-06-15 13:49 | Outpatient (CLI) | payer MEDICARE, MEDICAID, SELFPAY | PROVIDERS: PCP Family Medicine; Visit Provider Nurse Practitioner Family | DX: G47.33 Obstructive sleep apnea (adult) (pediatric) (principal) | CPT/HCPCS: 94762 ==

== ENCOUNTER 2021-07-12 02:30 | Observation (INO) | payer MEDICARE, MEDICAID, SELFPAY ==
[2021-07-12] VITALS (10 sets, daily range): BP systolic 108–146; BP diastolic 63–88; PULSE 75–112; RESP 17–20; TEMP 36.4–37.7; O2SAT 94–100; BMI 32.0; BMI 31.8; BMI 35.6
--- NOTE | 2021-07-12 02:25 | XR_ITS ---
PROCEDURE INFORMATION: Exam: XR Chest Exam date and time: 07/12/2021 3:14 AM Age: 70 years old Clinical indication: Shortness of breath; Additional info: Chest pain TECHNIQUE: Imaging protocol: XR of the chest. Views: 1 view. COMPARISON: CR CXR CHEST(2 VIEWS-NOT PORTABLE) 02/17/2017 2:14 PM FINDINGS: Lungs: Limited inspiration and penetration of the chest. There are chronic parenchymal changes within both lung luke. No consolidation. No evidence of pulmonary vascular congestion. Pleural spaces: Unremarkable. No pleural effusion. No pneumothorax. Heart/Mediastinum: Unremarkable. No cardiomegaly. Bones/joints: Unremarkable. IMPRESSION: No acute intrathoracic disease.
--- NOTE | 2021-07-12 02:25 | CT_ITS ---
PROCEDURE INFORMATION: Exam: CT Abdomen And Pelvis With Contrast Exam date and time: 07/12/2021 2:56 AM Age: 70 years old Clinical indication: Nausea and vomiting; Prior surgery; Additional info: Abdominal pain TECHNIQUE: Imaging protocol: Computed tomography of the abdomen and pelvis with contrast. Radiation optimization: All CT scans at this facility use at least one of these dose optimization techniques: automated exposure control; mA and/or kV adjustment per patient size (includes targeted exams where dose is matched to clinical indication); or iterative reconstruction. Contrast material: ISOVUE; Contrast volume: 75 ml; Contrast route: IV; COMPARISON: ABDPELWO CT abdomen pelvis wo con 08/20/2017 5:18 PM FINDINGS: Tubes, catheters and devices: There are 2 spinal cord stimulator generator is identified within the lumbar region. There are 3 leads which enter the epidural space at L1-L2, and terminate at T9. Lungs: No mass/infiltrate at either lung base. No pleural effusion. Emphysematous changes at the lung bases. There is a calcified granuloma noted within the right lower lobe. Scattered calcified granulomas are identified at the lung bases. Heart: There are calcifications identified within the coronary arteries. Liver: The liver is normal in size and attenuation. No intrahepatic biliary dilitation. Gallbladder and bile ducts: The gallbladder is surgically absent. No evidence of extrahepatic biliary dilatation. Pancreas: Normal. No ductal dilation. Spleen: No splenomegaly. There is a 2 cm accessory spleen adjacent to the northway spleen. This is felt to be of no clinical significance. Granulomatous calcifications are noted. Adrenal glands: There is a 2.2 cm well-circumscribed low-attenuation nonenhancing lesion present within the right adrenal gland. A 1.6 cm well-circumscribed nonenhancing low-attenuation lesion is noted within the left adrenal gland. They are felt to represent small adrenal adenomas. Kidneys and ureters: There is a 2.4 cm cortical cyst arising from the inferior pole of the left kidney. No hydronephrosis. Stomach and bowel: There is diverticulosis within portions of the left colon without evidence of diverticulitis. No obstruction. No mucosal thickening. Small bowel mesentery is normal. Appendix: Unremarkable. Intraperitoneal space: Unremarkable. No free air. No significant fluid collection. Vasculature: Arterial atheromatous calcifications are noted. No abdominal aortic aneurysm. There are calcified phleboliths within the pelvis. Lymph nodes: Unremarkable. No enlarged lymph nodes. Urinary bladder: Unremarkable as visualized. Reproductive: Mild prostatic enlargement. Central prostatic calcification is noted. Bones/joints: Old compression deformity of T11, status post kyphoplasty. There are degenerative changes present within the thoracic and lumbar spine. Soft tissues: Unremarkable. IMPRESSION: 1. Cholecystectomy has been performed. No evidence of intrahepatic or extrahepatic biliary dilatation. 2. Bilateral adrenal adenomas are noted. 3. No evidence of obstruction or inflammatory change involving the bowel. 4. Mild prostatic enlargement. 5. Old compression deformity T11, status post kyphoplasty. 6. There are 2 spinal cord stimulator generator is within the lumbar region. Three leads enter the epidural space and terminate at T9. 7. No evidence of acute process within the abdomen or pelvis.
[2021-07-12 02:39] LABS: Coronavirus 19, PCR Not Detected (NotDetected); Influenza A, PCR Not Detected (NotDetected); Influenza B, PCR Not Detected (NotDetected)
[2021-07-12 02:47] LABS: Chloride 107 mmol/L (98-107)
[2021-07-12 02:48] LABS: Basophils # 0.1 K/mm3 (0-0.2); Basophils % 0.8 % (0.1-2.0); Eosinophils % 0.2 % (0.1-12.0); Hematocrit 47.5 % (42.0-52.0); Hemoglobin 16.2 g/dL (14.1-18.0); Lymphocytes # 0.6 K/mm3 (0.7-4.5); Lymphocytes % 4.6 % (10-50); Mean Corpuscular HGB Conc 34.1 g/dL (31.8-35.4); Mean Corpuscular Hemoglobin 31.7 pg (27.0-31.2); Mean Platelet Volume 8.3 fl (7.4-10.4); Monocytes % 7.9 % (1.7-9.3); Neutrophils # 11.1 K/mm3 (1.8-7.8); Neutrophils % 86.5 % (37.0-80.0); Platelet Count 323 K/mm3 (142-424); Red Blood Count 5.11 M/mm3 (4.60-6.20); Sodium 138 mmol/L (136-145); White Blood Count 12.8 K/mm3 (4.8-10.8)
[2021-07-12 02:49] LABS: MANUAL DIFFERENTIAL MANUAL DIFFERENTIAL (MANUAL DIFF)
[2021-07-12 02:50] LABS: Amylase 55 U/L (30-110); Blood Urea Nitrogen 26 mg/dl (9-20); Creatinine Clearance Estimated 96 mL/min (50-200); Estimated Glomerular Filt Rate 60 ml/min (>60); GFR (African American) 72 ML/MIN (>60); Lactic Acid 1.1 mmol/L (0.7-2.1)
[2021-07-12 02:51] LABS: Alanine Aminotransferase 34 U/L (12-78); Albumin Level 4.2 g/dl (3.5-5.0); Albumin/Globulin Ratio 1.4 (1.1-1.8); Alkaline Phosphatase 120 U/L (38-126); Aspartate Amino Transferase 29 U/L (17-59); Bilirubin,Total 0.6 mg/dl (0.2-1.3); Calcium 9.3 mg/dl (8.4-10.2); Carbon Dioxide 20 mmol/L (22.0-30.0); Globulin 2.9 g/dL (1.3-3.2); Glucose 167 mg/dl (74-100); Lipase 62 U/L (23-300); Total Protein,Serum 7.1 g/dl (6.3-8.2)
[2021-07-12 02:57] LABS: C-Reactive Protein 50.3 mg/L (0-4)
[2021-07-12 03:08] LABS: Procalcitonin 0.308 ng/mL (0.0-2.0)
[2021-07-12 03:48] LABS: Erythrocyte Sedimentation Rate 14 mm/hr (0-20)
[2021-07-12 04:08] LABS: Lymphocytes % 18 % (10-50); Monocytes % 3 % (2-9); Neutrophils % 79 % (42-76); Total Cells Counted 100
[2021-07-12 04:09] LABS: Platelet Estimate Normal; RBC Morphology Normal
--- NOTE | 2021-07-12 04:10 | PC.NURSE ---
URINE SPECIMEN SENT TO LAB. PT DENIES FURTHER NAUSEA OR VOMITING AT THIS TIME. FAMILY AT BEDSIDE. BOBBIM.
[2021-07-12 04:18] LABS: Microscopic, Urine URINE MICROSCOPIC (MICROSCOPIC)
[2021-07-12 04:22] LABS: Appearance,Urine CLEAR (Clear); Bilirubin,Urine Negative (Negative); Blood, Urine Negative (Negative); Color,Urine YELLOW (Yellow); Glucose,Urine (UA) Negative (Negative); Ketones,Urine Negative (Negative); Leukocyte Esterase,Urine Negative (Negative); Nitrate,Urine Negative (Negative); PH,Urine 5.5 (5.0-8.5); Protein,Urine Negative (Negative); Specific Gravity, Urine 1.015 (1.005-1.030); Urobilinogen,Urine 0.2 EU/dl (0.2)
[2021-07-12 04:43] LABS: Bacteria,Urine 1+ /lpf
--- NOTE | 2021-07-12 05:11 | HMH.EDNVD ---
ED Disposition Clinical Impression: Abdominal pain Qualifiers: Abdominal location: generalized Qualified Code(s): R10.84 - Generalized abdominal pain Disposition: Admitted as Observation Condition on Discharge: Good - Critical Care Critical Care Time: No Attestation: On 07/12/21, the high probability of a clinically significant, sudden or life threatening deterioration of the following system(s) required my full and direct attention, intervention and personal management. The time I documented below is in addition to time spent performing reported procedures but includes the following listed in this critical care notation. Medical Decision Making - Medical Records Medical records reviewed: Yes: I reviewed the patient's medical records. - Leeroy Inquiry Pt receiving controlled substance: No Vital Signs: 07/12/21 02:13 07/12/21 03:00 07/12/21 03:30 Temperature 99.9 F H Temperature Source Oral Pulse Rate 100 H 102 H Pulse Rate [Left Radial] 112 H Respiratory Rate 18 Blood Pressure 130/76 116/72 Blood Pressure [Right Arm] 132/83 Blood Pressure Mean 83 78 Blood Pressure Mean [Right Arm] 99 02 Sat by Pulse Oximetry 97 Oxygen Delivery Method Room Air 07/12/21 04:00 07/12/21 04:08 Temperature Temperature Source Pulse Rate 110 H 108 H Pulse Rate [Left Radial] Respiratory Rate Blood Pressure 133/70 146/86 H Blood Pressure [Right Arm] Blood Pressure Mean 82 96 Blood Pressure Mean [Right Arm] 02 Sat by Pulse Oximetry Oxygen Delivery Method - Lab Data Lab results reviewed: Yes: I reviewed the patient's lab results. Lab Results 07/12/21 02:17: WBC 12.8 H, RBC 5.11, Hgb 16.2, Hct 47.5, MCV 93.0, MCH 31.7 H, MCHC 34.1, RDW 14.0, Plt Count 323, MPV 8.3, Neut % (Auto) 86.5 H, Lymph % (Auto) 4.6 L, Hand % (Auto) 7.9, Eos % (Auto) 0.2, Baso % (Auto) 0.8, Neut # (Auto) 11.1 H, Lymph # (Auto) 0.6 L, Hand # (Auto) 1.0, Eos # (Auto) 0.0, Baso # (Auto) 0.1, Total Counted 100, Neutrophils % (Manual) 79 H, Lymphocytes % (Manual) 18, Monocytes % (Manual) 3, Platelet Estimate Normal, RBC Morphology Normal 07/12/21 02:17: Sodium 138, Potassium 4.0, Chloride 107, Carbon Dioxide 20 L, Anion Gap 15.0, BUN 26 H, Creatinine 1.20, Estimated Creat Clear 96, Estimated GFR 60, Est GFR ( Amer) 72, Glucose 167 H, Calcium 9.3, Total Bilirubin 0.6, AST 29, ALT 34, Alkaline Phosphatase 120, C-Reactive Protein 50.3 H, Total Protein 7.1, Albumin 4.2, Globulin 2.9, Albumin/Globulin Ratio 1.4, Amylase 55, Lipase 62 07/12/21 02:17: Lactate 1.1 07/12/21 02:17: ESR 14 07/12/21 02:17: Procalcitonin 0.308 07/12/21 02:17: SARS-CoV-2 (PCR) Not detected, Influenza A Untype (PCR) Not detected, Influenza Type B (PCR) Not detected 07/12/21 02:17: Troponin I < 0.01 07/12/21 04:08: Urine Color Yellow, Urine Appearance Clear, Urine pH 5.5, Ur Specific Reseda 1.015, Urine Protein Negative, Urine Glucose (UA) Negative, Urine Ketones Negative, Urine Blood Negative, Urine Nitrate Negative, Urine Bilirubin Negative, Urine Urobilinogen 0.2, Ur Leukocyte Esterase Negative, Urine RBC 3-5, Urine WBC 3-5, Ur Squamous Epith Cells 3-5, Urine Bacteria 1+ Result diagrams: 07/12/21 02:17 07/12/21 02:17 Orders (Tests/Meds): ED MEDICATIONS Generic Name Dose Route Start Last Admin Trade Name Freq PRN Reason Stop Dose Admin Sodium Chloride 1,000 mls @ 999 mls/hr 07/12/21 02:30 07/12/21 02:30 Sod Chlor 0.9% 1000ml Bag IV 07/12/21 03:30 999 mls/hr .Q1H1M ALEX Administration Sodium Chloride 1,000 mls @ 999 mls/hr 07/12/21 05:30 07/12/21 05:22 Sod Chlor 0.9% 1000ml Bag IV 07/12/21 06:30 999 mls/hr .Q1H1M ALEX Administration Discontinued Medications Generic Name Dose Route Start Last Admin Trade Name Freq PRN Reason Stop Dose Admin Iopamidol 75 ml 07/12/21 03:23 07/12/21 03:24 Iopamidol-370 (76%);100ml Bottle IV 07/12/21 03:24 75 ml ONCE ONE Administration Ondansetron HCl 4 mg 07/12/21 05:15
--- NOTE | 2021-07-12 05:14 | PC.NURSE ---
Dr. Adi hammer re: admission
--- NOTE | 2021-07-12 05:27 | PC.NURSE ---
Dr. German on phone with Dr. Joshi
--- NOTE | 2021-07-12 05:28 | ECG_ITS ---
APPROVED REPORT Exam: Resting ECG HR:108 bpm ECG Measurements Heart Rate [address] 167 P 57 QRSd 117 QRS -50 QT 334 T 83 QTc 398 Conclusion ELECTRONIC VENTRICULAR PACEMAKER ABNORMAL RHYTHM ECG UNCONFIRMED REPORT Electronically signed by : Zeeshan Vences MD 07/12/2021 21:06:39
--- NOTE | 2021-07-12 05:31 | PC.NURSE ---
PT PULLED OUT IV TO LAC. DRESSING APPLIED.
--- NOTE | 2021-07-12 05:35 | PC.NURSE ---
PT AWARE OF PLAN TO ADMIT. NO ACUTE DISTRESS NOTED.
[2021-07-12 05:43] LABS: Troponin I < 0.01 ng/ml (0.00-0.034)
[2021-07-12 05:59] LABS: Troponin I < 0.01 ng/ml (0.00-0.034)
--- NOTE | 2021-07-12 06:07 | PC.NURSE ---
REPORT TO ESTELLA JARQUIN
--- NOTE | 2021-07-12 06:16 | PC.NURSE ---
patient up to floor via wheelchair @ this time.
--- NOTE | 2021-07-12 07:14 | HMH.PHAVTE ---
[facility] Pharmacy VTE Monitoring - Patient Demographics Admission date: 07/12/21 Report Date: 07/12/21 Time: 07:14 Allergies/Adverse Reactions: Patient Allergies No Known Allergies Allergy (Verified 06/29/21 10:51) Height: 1.96 m Weight: 122.47 kg Patient Problems: Current Active Problems Abdominal pain (Acute) - VTE Risk Labs: VTE Related Lab Results Hgb 16.2 g/dL (14.1-18.0) 07/12/21 02:17 Hct 47.5 % (42.0-52.0) 07/12/21 02:17 Plt Count 323 K/mm3 (142-424) 07/12/21 02:17 BUN 26 mg/dl (9-20) H 07/12/21 02:17 Creatinine 1.20 mg/dl (0.66-1.25) 07/12/21 02:17 Estimated Creat Clear 96 mL/min (50-200) 07/12/21 02:17 Was VTE Risk Assessment Performed: Yes VTE Score: 2 VTE Risk Level: Very Low Risk - Prophylaxis VTE Prophylaxis Ordered?: Yes Types of VTE Prophylaxis: TEDS Knee High Location of Applied Device: Bilateral Lower Extremeties
--- NOTE | 2021-07-12 07:40 | HMH.PHAINT ---
MEDICATION RECONCILIATION COMPLETED ON PATIENT USING EXTERNAL FILL HISTORY FROM PHARMACY. -LISA EDWARD, ROZD
[2021-07-12 09:13] LABS: Troponin I < 0.01 ng/ml (0.00-0.034)
--- NOTE | 2021-07-12 09:27 | HMH.HP ---
*Admission Date: 07/12/21 *Chief complaint: Nausea, vomiting, diarrhea, and abdominal pain. *History of present illness: Mr. Clancy is a 70-year-old male patient with a history of hypertension, restless leg syndrome, gout, osteoarthritis, BPH, COPD, lumbar spine stenosis, constipation, diverticulitis, and allergic rhinitis, who was brought to [facility] emergency room for evaluation per EMS after suffering with 24 hours of abdominal pain, vomiting and nausea, and then diarrhea. He states his discomfort started yesterday before lunch in his mid abdomen and was associated with the nausea. He then began vomiting before dinner and then suffered with diarrhea prior to this. He denies any hematochezia, melena, hematemesis. He states he did not have any fever nor any upper respiratory symptoms. With the worsening of the pain he presented to the emergency room for evaluation. He has had no sick contacts. In the emergency room he was found to have a low-grade fever of 99.9 with a heart rate of 112. Blood pressure was satisfactory. White blood cell count was found to be 12,800. C-reactive protein was elevated at 50.3 with kidney function showing a BUN of 26 and a creatinine of 1.2. Lactate acid was 1.1. Urine appeared negative. He did receive a couple of liters of IV fluids as well as Zofran, and promethazine. He was then admitted with generalized abdominal pain. With exam this a.m. patient had just arriving to his room on the medical floor. He is feeling somewhat better after receiving medications. He is currently getting IV Protonix. He said the abdominal discomfort is not as bad. His last diarrhea stool was after arriving to the room. Stool studies have been ordered. He has not vomited in several hours. He states his kidneys have been working as usual. Labs completed at the office of [facility] on 06/24/2021 with the following results: Uric acid normal at 5.2, BUN 27 with a creatinine 1.25. Glucose 94. H&H were 14 and 42.2. [facility] History Medical History: Reports:: BPH, Cancer, Chronic Obstructive Pulmonary Disease (COPD), Gastroesophageal Reflux Disease(GERD), Hypertension, Lung Disease, Renal Disease (Stage III kidney disease) Denies:: Diabetes Mellitus Type 1, Diabetes Mellitus Type 2, Internal Pacemaker, MRSA, Seizures *Have you ever received a pneumonia vaccine?: Yes *Have you received a flu vaccine this season?: Yes Other Medical History: Reports: Arthritis, Sinus Problems, Other. Denies: Blood Transfusion Reaction Comment:: Gout, restless leg syndrome, chronic back pain, BPH, lumbar spinal stenosis, diverticulosis. Laterality Cases: Right: Arthroscopy Knee, Bilateral: Carpal Tunnel Release Other Surgeries: Yes: No Previous Surgery, Cholecystectomy, Colonoscopy, Other (Back sx). No: Pacemaker Amputation: No Fractures: Yes (back) Comment: Thoracic spine surgery x2 in 2004; laminectomy; discectomy; neurostimulator in the middle and lower back 2018 neurostimulator implant revision 2018; pain pump placement 2019 - *Social History Smoking Status: Former smoker Tobacco Type: cigarettes # Packs/Day (cigarettes): 0 Alcohol Intake: never Substance Use Type: denies use *Occupational Status:: retired Housing: house Household Members: spouse *Travel in the last 8 weeks: None Family Hx:: Cancer, Coronary Artery Disease, Hypertension Review of Systems - Constitutional Reports weakness - Eyes Denies change in vision - ENT Reports headache(s), Denies ear pain, Denies sore throat - *Cardiovascular Denies chest pain, Denies shortness of breath, Denies irregular heart rhythm, Denies leg swelling - *Respiratory Denies chest congestion, Denies cough, Denies shortness of breath - *Gastrointestinal Reports abdominal pain, Reports change in stools, Reports cramping, Reports loose stools, Reports nausea, Reports vomiting, Denies constipation, Denies vomiting blood, Denies bright, red blood in stools, Denies black, tarry s
[2021-07-12 12:22] LABS: Adenovirus F 40/41, stool Not Detected (NotDetected); Astrovirus Not Detected (NotDetected); Campylobacter Not Detected (NotDetected); Clostridium Difficile A/B, PCR Not Detected (NotDetected); Cryptosporidium Not Detected (NotDetected); Cyclospora Cayetanesis Not Detected (NotDetected); Entamoeba histolytica Not Detected (NotDetected); Enteroaggregative E coli Not Detected (NotDetected); Enteropathogenic E coli Not Detected (NotDetected); Enterotoxigenic E coli Not Detected (NotDetected); Giardia lamblia Not Detected (NotDetected); Norovirus Not Detected (NotDetected); Plesimonas Shigalloides, PCR Not Detected (NotDetected); Rotavirus A Not Detected (NotDetected); Salmonella, PCR Not Detected (NotDetected); Sapovirus Not Detected (NotDetected); Shigella Enterovasive E coli Not Detected (NotDetected); Vibrio Cholerae Not Detected (NotDetected); Vibrio, PCR Not Detected (NotDetected); Yersinia Entercolitica, PCR Not Detected (NotDetected)
[2021-07-12 14:58] LABS: Shiga-like toxin E coli Detected (NotDetected)
--- NOTE | 2021-07-12 15:37 | PC.NURSE ---
Spoke to MD Arizmendi nurse regarding pt's stool specimen testing positive for EColi Shiga Toxins. Left a callback number and they will call back with any new orders.
--- NOTE | 2021-07-12 16:50 | PC.NURSE ---
LATE ENTRY 1200- This RN resumes care of pt at this time
--- NOTE | 2021-07-12 18:27 | PC.NURSE ---
Pt has done fine this shift. Tolerating clear liquid diet well. x1 loose BM this shift, specimen sent to lab and has since resulted. Pt has had no c/o n/v. Remains on RA. No other acute changes. Will monitor.
[2021-07-13 04:00] VITALS: BP 102/49; PULSE 78; RESP 20; TEMP 36.4; O2SAT 94
[2021-07-13 05:00] VITALS: BMI 32.5
[2021-07-13 07:55] VITALS: BP 150/84; PULSE 72; RESP 18; TEMP 36.9; O2SAT 92
--- NOTE | 2021-07-13 08:23 | HMH.ACPN2 ---
Internal Medicine - PN: Subj *Date: 07/13/21 *Time: 08:23 Interval history: Patient states he is feeling well this morning. He wants to be discharged today. He states his diarrhea has slowed and he denies any abdominal pain. He is tolerating his diet. Exam Vital signs and Labs for Last 24 Hours: Temp Pulse Resp BP Pulse Ox 98.4 F 72 18 150/84 H 92 L 07/13/21 07:55 07/13/21 07:55 07/13/21 07:55 07/13/21 07:55 07/13/21 07:55 Laboratory Results - last 24 hr 07/12/21 08:33: Troponin I < 0.01 07/12/21 12:15: Stl Aeromonas (PCR) Not detected, Stl C. cayetanensis PCR Not detected, Stool Rotavirus (PCR) Not detected, Stl Adenov F 40/41 PCR Not detected, Stool Astrovirus (PCR) Not detected, Stool Campylobacter PCR Not detected, Stl C.difficile Tox PCR Not detected, Stool Cryptosporidium PCR Not detected, Stl E.coli Shiga Tox PCR Detected A, Stool E coli O157 PCR Not detected, Stl Enterotoxigenic E PCR Not detected, Stool EPEC (PCR) Not detected, Stool EAEC (PCR) Not detected, Stl E. histolytica PCR Not detected, Stool Giardia Lamblia PCR Not detected, Stool Salmonella PCR Not detected, Stool Sapovirus (PCR) Not detected, Stl P. shigelloides PCR Not detected, Stl Shigella/EIEC PCR Not detected, St Y.enterocolitica PCR Not detected, Stool Vibrio (PCR) Not detected, Stl Vibrio cholerae PCR Not detected, Stl Norovirus GI/GII PCR Not detected I & O for Last 24 hours: Intake & Output 07/10/21 07/11/21 07/12/21 07/13/21 11:59 11:59 11:59 11:59 Intake Total 1100 / 1100 Output Total 0 / 0 0 / 0 Balance 0 / 0 1100 / 1100 Weight 268 lb 15.423 oz 276 lb 2 oz - Constitutional no acute distress - *Routine Respiratory Exam Present: CTA bilaterally - *Routine Cardiovascular Exam Present: RRR - *Routine Abdominal Exam Present: soft, normoactive bowel sounds. Absent: tenderness - *Routine Extremities Exam Absent: cyanosis, clubbing, edema - *Routine Skin Exam Present: warm. Absent: rash - *Routine Neurological Exam Present: alert, oriented X3 Assessment and Plan (1) Abdominal pain Status: Acute Qualifiers: Abdominal location: generalized Qualified Code(s): R10.84 - Generalized abdominal pain Category: Medical Code(s): R10.9 - Unspecified abdominal pain (2) Nausea vomiting and diarrhea Status: Acute Category: Medical Code(s): R11.2 - Nausea with vomiting, unspecified; R19.7 - Diarrhea, unspecified (3) Hypertension Status: Chronic Category: Medical Code(s): I10 - Essential (primary) hypertension (4) Gout Status: Chronic Category: Medical Code(s): M10.9 - Gout, unspecified (5) Chronic kidney disease Status: Chronic Category: Medical Code(s): N18.9 - Chronic kidney disease, unspecified (6) Diverticulosis Status: Chronic Category: Medical Code(s): K57.90 - Diverticulosis of intestine, part unspecified, without perforation or abscess without bleeding (7) Osteoarthritis Status: Chronic Category: Medical Code(s): M19.90 - Unspecified osteoarthritis, unspecified site (8) COPD (chronic obstructive pulmonary disease) Status: Chronic Category: Medical Code(s): J44.9 - Chronic obstructive pulmonary disease, unspecified (9) BPH (benign prostatic hyperplasia) Status: Chronic Category: Medical Code(s): N40.0 - Benign prostatic hyperplasia without lower urinary tract symptoms (10) Shiga toxin-producing Escherichia coli infection Status: Acute Category: Medical Code(s): A49.8 - Other bacterial infections of unspecified site - Assessment and plan all Dx Assessment and Plan for all problems:: Diarrhea panel was positive for E. coli). Diarrhea has slowed today. Patient should be able to be discharged home. Will discuss with Dr. Joshi.
[2021-07-13 08:56] LABS: Anion Gap 11.6 mEq/L (5-15); Blood Urea Nitrogen 17 mg/dl (9-20); Calcium 8.6 mg/dl (8.4-10.2); Carbon Dioxide 21 mmol/L (22.0-30.0); Chloride 108 mmol/L (98-107); Creatinine Clearance Estimated 108 mL/min (50-200); Estimated Glomerular Filt Rate 66 ml/min (>60); GFR (African American) 80 ML/MIN (>60); Glucose 135 mg/dl (74-100); Potassium 3.6 mmoL/L (3.5-5.1); Sodium 137 mmol/L (136-145)
[2021-07-13 09:01] LABS: Basophils # 0.1 K/mm3 (0-0.2); Basophils % 1.5 % (0.1-2.0); Eosinophils # 0.1 K/mm3 (0.0-0.4); Eosinophils % 1.9 % (0.1-12.0); Hematocrit 40.3 % (42.0-52.0); Hemoglobin 13.4 g/dL (14.1-18.0); Lymphocytes # 1.5 K/mm3 (0.7-4.5); Lymphocytes % 19.2 % (10-50); Mean Corpuscular HGB Conc 33.4 g/dL (31.8-35.4); Mean Corpuscular Hemoglobin 31.3 pg (27.0-31.2); Mean Platelet Volume 8.3 fl (7.4-10.4); Monocytes # 0.6 K/mm3 (0.1-1.0); Monocytes % 7.4 % (1.7-9.3); Neutrophils # 5.3 K/mm3 (1.8-7.8); Platelet Count 268 K/mm3 (142-424); Red Blood Count 4.29 M/mm3 (4.60-6.20); Red Cell Distribution Width 14.3 % (11.5-17.5); White Blood Count 7.6 K/mm3 (4.8-10.8)
--- NOTE | 2021-07-13 09:29 | HMH.PHAINT ---
DISCHARGE MEDICATION COUNSELING PROVIDED. DISCUSSED STOPPING THE LINZESS, STARTING SHORT-COURSE LEVAQUIN THERAPY. DISCUSSED HOW TO TAKE (ONCE DAILY, WITH OR WITHOUT FOOD BUT CAN TAKE WITH IF GI UPSET, RARE REPORTED SIDE EFFECT OF TENDON RUPTURE, SEPARATE FROM VITAMIN D, ZINC, OTHER VITAMINS OR SUPPLEMENTS BY AT LEAST 4 HOURS). PATIENT ENDORSED NO QUESTIONS AT THIS TIME.
--- NOTE | 2021-07-14 13:55 | CARE MANAGER ---
Contacted patient related to follow up from hospital. Patient states he changed his follow up to 07/26/21 and that he picked up his antibiotic. He is feeling better and denies any questions or concerns.
--- NOTE | 2021-07-16 22:20 | HMH.DCSUM ---
General - General Admission date:: 07/12/21 Discharge date: 07/13/21 HPI HPI: Mr. Clancy is a 70-year-old male patient with a history of hypertension, restless leg syndrome, gout, osteoarthritis, BPH, COPD, lumbar spine stenosis, constipation, diverticulitis, and allergic rhinitis, who was brought to [facility] emergency room for evaluation per EMS after suffering with 24 hours of abdominal pain, vomiting and nausea, and then diarrhea. He states his discomfort started yesterday before lunch in his mid abdomen and was associated with the nausea. He then began vomiting before dinner and then suffered with diarrhea prior to this. He denies any hematochezia, melena, hematemesis. He states he did not have any fever nor any upper respiratory symptoms. With the worsening of the pain he presented to the emergency room for evaluation. He has had no sick contacts. In the emergency room he was found to have a low-grade fever of 99.9 with a heart rate of 112. Blood pressure was satisfactory. White blood cell count was found to be 12,800. C-reactive protein was elevated at 50.3 with kidney function showing a BUN of 26 and a creatinine of 1.2. Lactate acid was 1.1. Urine appeared negative. He did receive a couple of liters of IV fluids as well as Zofran, and promethazine. He was then admitted with generalized abdominal pain. With exam this a.m. patient had just arriving to his room on the medical floor. He is feeling somewhat better after receiving medications. He is currently getting IV Protonix. He said the abdominal discomfort is not as bad. His last diarrhea stool was after arriving to the room. Stool studies have been ordered. He has not vomited in several hours. He states his kidneys have been working as usual. Labs completed at the office of [facility] on 06/24/2021 with the following results: Uric acid normal at 5.2, BUN 27 with a creatinine 1.25. Glucose 94. H&H were 14 and 42.2. Hospital Course Hospital Course: The patient was admitted and started on hydration, GI rest, a PPI, or antiemetics. The stool panel came back positive for E. coli with Shiga toxin. He was started on Levaquin IV. Abdominal pelvic CT showed mild prostatic enlargement, spinal cord stimulator generator within the lumbar region, and no evidence of any acute process in the abdomen. By 07/13/2021, he was feeling well and wanted to be discharged home. His diarrhea had slowed and he denies any abdominal pain. He was tolerating a diet and was able to be referred home on Levaquin. Objective Vital signs: Temp Pulse Resp BP Pulse Ox 98.4 F 72 18 150/84 H 92 L 07/13/21 07:55 07/13/21 07:55 07/13/21 07:55 07/13/21 07:55 07/13/21 07:55 Narrative: - Constitutional no acute distress Comments: With initial assessment patient sitting on the side of the bed. He appears in no acute distress. - *Routine HEENT Exam Head: Present: normocephalic, atraumatic Eye: Present: PERRL. Absent: conjunctival icterus, scleral injection, conjunctivae pink ENT: Present: mucous membranes moist, oropharynx clear - *Routine Neck Exam Present: supple. Absent: carotid bruit, lymphadenopathy, thyromegaly - *Routine Respiratory Exam Present: CTA bilaterally (Anteriorly and posteriorly) - *Routine Cardiovascular Exam Present: RRR - *Routine Abdominal Exam Present: soft, tenderness (Diffuse mild tenderness), surgical scars. Absent: normoactive bowel sounds (Hyperactive), distended, rebound, guarding, organomegaly - *Routine Rectal Exam Rectal:: deferred - *Routine Genitalia Exam Genitalia:: deferred - *Routine Extremities Exam Present: full ROM, pulses intact. Absent: edema, calf tenderness - *Routine Neurological Exam Present: alert, oriented X3, normal speech. Absent: altered mental status Results Labs on day of discharge: Preliminary micro results at discharge 07/12/21 02:17 Blood Culture - Preli
== END 2021-07-13 10:15 | disposition home or self-care (01) ==
LOC: ER 05:43 → 2ND 05:51
PROVIDERS: Admitting Provider Family Medicine; Emergency Provider Emergency Medicine; PCP Family Medicine; Visit Provider Family Medicine
DX: A04.4 Other intestinal Escherichia coli infections (principal); R10.9 Unspecified abdominal pain; Z20.822 Contact with and (suspected) exposure to COVID-19; N18.30 Chronic kidney disease, stage 3 unspecified; K21.9 Gastro-esophageal reflux disease without esophagitis; I10 Essential (primary) hypertension; J44.9 Chronic obstructive pulmonary disease, unspecified; M10.9 Gout, unspecified; K57.90 Diverticulosis of intestine, part unspecified, without perforation or abscess without bleeding; N40.0 Benign prostatic hyperplasia without lower urinary tract symptoms; M19.90 Unspecified osteoarthritis, unspecified site; Z79.899 Other long term (current) drug therapy
CPT/HCPCS: 96365; G0378; 71045; 74177; 80048; 80053; 81001; 82150; 83605; 83690; 84145; 84484; 85007; 85025; 85651; 86140; 87040; 87077; 87507; 93005; 96375; 99285; C9803; J1956; J2405; Q9967; U0003; U0005

== ENCOUNTER → 2021-10-17 10:58 | Outpatient (POV) | payer MEDICARE, MEDICAID, SELFPAY ==
[2021-10-17 11:07] VITALS: BP 123/76; PULSE 60; RESP 17; TEMP 36.5; O2SAT 96; BMI 27.5
--- NOTE | 2021-10-17 12:04 | HMH.PAINSOAP ---
[facility] [place] Pain Management SOAP Note Subjective:: Patient is a pleasant 71-year-old male that presents today for follow-up. We are currently treating the patient for degenerative disc disease of lumbar spine with lumbar radiculopathy symptoms, facet arthropathy, spinal stenosis with neurogenic claudication symptoms. Today he rates his pain a 4 out of 10. He states his pain is primarily in his left hip. He is scheduled for a left hip replacement on 10/24/2021 at [facility]. Patient denies any new trauma or injury to the site. He denies any change to the location or type of pain he experiences. Patient does have thecal patient is a pleasant with bupivacaine 20 mg/mL with a daily dose of 8.3 mg/day. He states this medication is working well. He denies any side effects from this medication. Patient does also have a [employer] spinal cord stimulator in place. He has had this for about 4 years. Patient states it is working well however he is having to charge the device more frequently. He states this does adequately help give relief in his legs however its never been able to help his neuropathy in his feet. The [employer] representatives has discussed with the patient regarding needing a battery replacement in the near future. Leeroy is [id number]. Is been reviewed and appropriate. Review of Systems: General: No recent weight changes, no fever, no sleep disturbances Respiratory: No cough, no shortness of air, no recurring pulmonary infections Cardiovascular/peripheral vascular: No chest pain, no palpitations, no edema, no shortness of breath Gastrointestinal: No new onset incontinence, normal bowel movements reported Genitourinary: No new onset incontinence Musculoskeletal: Low back pain, left hip pain Psychiatric: [Normal mood/affect] Neurological: [Denies weakness in extremities], [denies balance issues] Objective:: Physical Exam: General: Alert and oriented x3, no acute distress, pleasant and cooperative Lungs: Respirations even and unlabored, symmetrical chest expansion Eyes: PERRL Musculoskeletal: Flexion and extension of lumbar [spine] somewhat guarded secondary to pain, [antalgic gait noted] Neurological: Speech clear, no gross sensory deficit Assessment:: Degenerative disc disease of lumbar spine with lumbar radiculopathy symptoms, facet arthropathy, spinal stenosis with neurogenic claudication symptoms Plan:: We will plan on proceeding forward with a battery replacement for his spinal cord stimulator. The device has not been holding charge for as long as it previously had. Patient is having to increasingly charge his device in order to use it. I have discussed with the patient regarding getting insurance approval for the replacement. Patient will return to clinic once insurance has given approval for the device. At that time we will follow-up and reevaluate symptoms. Patient has been instructed to contact the clinic with any concerns before the next appointment. Dr. Hyman has reviewed this note and agrees with this plan of care. This note was dictated using voice recognition software and make contain errors or omissions. [facility] [place] History I have reviewed the patient's past medical history: Yes Medical History: Reports:: BPH, Cancer, Chronic Obstructive Pulmonary Disease (COPD), Gastroesophageal Reflux Disease(GERD), Hyperlipidemia, Hypertension, Lung Disease, Renal Disease Denies:: Diabetes Mellitus Type 1, Diabetes Mellitus Type 2, Internal Pacemaker, MRSA, Seizures *Have you ever received a pneumonia vaccine?: Yes *Have you received a flu vaccine this season?: Yes Other Medical History: Reports: Arthritis, Sinus Problems, Other. Denies: Blood Transfusion Reaction Laterality Cases: Right: Arthroscopy Knee, Bilateral: Carpal Tunnel Release Other Surgeries: Yes: No Previous Surgery, Cholecystectomy, Colonoscopy, Other (Back sx). No: Pacemaker Amputation: No Fractures: Yes (back) - *Social History Smoking Status: Form
== END ==
PROVIDERS: PCP Family Medicine; Visit Provider Nurse Practitioner Family
DX: M51.16 Intervertebral disc disorders with radiculopathy, lumbar region (principal); M47.26 Other spondylosis with radiculopathy, lumbar region; M48.062 Spinal stenosis, lumbar region with neurogenic claudication
CPT/HCPCS: 99212; G0463

== ENCOUNTER 2021-12-16 09:53 | Day surgery (SDC) | payer MEDICARE, MEDICAID, SELFPAY ==
[2021-12-14 13:10] VITALS: BMI 31.8
[2021-12-16 10:10] VITALS: BP 119/66; PULSE 67; RESP 18; TEMP 36.2; O2SAT 95
[2021-12-16 10:29] LABS: Basophils # 0.1 K/mm3 (0-0.2); Basophils % 0.9 % (0.1-2.0); Eosinophils # 0.3 K/mm3 (0.0-0.4); Hematocrit 40.4 % (42.0-52.0); Hemoglobin 13.2 g/dL (14.1-18.0); Lymphocytes # 1.2 K/mm3 (0.7-4.5); Lymphocytes % 19.7 % (10-50); Mean Corpuscular HGB Conc 32.6 g/dL (31.8-35.4); Mean Corpuscular Hemoglobin 29.9 pg (27.0-31.2); Mean Corpuscular Volume 91.8 fl (80-94); Mean Platelet Volume 8.5 fl (7.4-10.4); Monocytes # 0.3 K/mm3 (0.1-1.0); Monocytes % 4.7 % (1.7-9.3); Neutrophils # 4.4 K/mm3 (1.8-7.8); Neutrophils % 70.6 % (37.0-80.0); Platelet Count 315 K/mm3 (142-424); Red Cell Distribution Width 14.9 % (11.5-17.5); White Blood Count 6.3 K/mm3 (4.8-10.8)
[2021-12-16 10:35] LABS: Chloride 106 mmol/L (98-107); Sodium 142 mmol/L (136-145)
[2021-12-16 10:38] LABS: Blood Urea Nitrogen 23 mg/dl (9-20); Carbon Dioxide 25 mmol/L (22.0-30.0); Creatinine Clearance Estimated 95 mL/min (50-200); Estimated Glomerular Filt Rate 59 ml/min (>60); GFR (African American) 72 ML/MIN (>60)
[2021-12-16 10:39] LABS: Calcium 9.4 mg/dl (8.4-10.2); Glucose 99 mg/dl (74-100)
[2021-12-16 13:06] VITALS: BP 120/74; PULSE 92; RESP 17; TEMP 36.1; O2SAT 94
[2021-12-16 13:16] VITALS: BP 121/73; PULSE 51; RESP 17; O2SAT 99
[2021-12-16 13:26] VITALS: BP 117/79; PULSE 62; RESP 18; O2SAT 100
[2021-12-16 13:36] VITALS: BP 129/80; PULSE 63; RESP 18; O2SAT 93
--- NOTE | 2021-12-16 13:52 | SUR.OPER ---
SN of generator removed [id number]
--- NOTE | 2021-12-16 13:52 | EXP.OP.NOTE ---
Date of procedure: 12/16/21 Pre-op Diagnosis:: End-of-life spinal cord stimulator generator [employer] for degenerative disc disease of lumbar spine with lumbar radiculopathy symptoms Post-op Diagnosis:: Same Procedure performed:: Replacement [employer] spinal cord stimulator generator Surgeon:: Silverio Hyman MD WIRE TWISTING MACHINE OPERATOR:: Other Anesthesia: MAC Estimated blood loss (mL): 5 Clinical Note:: This patient is a pleasant 71-year-old white male who we are treating for degenerative disease of lumbar spine with lumbar radiculopathy symptoms. He is doing very well with his spinal cord stimulator. He is also doing very well with his intrathecal pain pump. His [employer] spinal cord stimulator generator is nearing end-of-life. We will replace the generator today. Operative findings:: None Operative note:: Informed consent was obtained risk and benefits of the procedure were explained to the patient. Patient was taken the operating room. The patient was prepped and draped in sterile fashion. The skin and subcutaneous tissues overlying the generator was anesthetized using lidocaine. I made an incision and dissected out the spinal cord stimulator generator and leads. We disconnected the leads from the old generator and attached the leads to the new generator. Impedances were checked and found to be okay. The generator was placed back in the pocket. The pocket was irrigated with antibiotic solution. The incision was then closed with 2-0 Vicryl and cristofer. An abdominal binder was placed the patient was taken recovery in stable condition. Patient tolerated the procedure well with no complication. The [employer] rep reprogram the stimulator with good stimulation in all areas of pain. Patient was discharged home neurologic intact with good relief of pain symptoms. Plan and disposition: Follow-up with this patient in 2 weeks to remove cristofer. If is any problems or questions she is to call us back in the pain clinic. Condition: stable Disposition: PACU Complications:: None
[2021-12-16 14:06] VITALS: BP 126/71; PULSE 64; RESP 17; O2SAT 96
== END 2021-12-16 14:06 | disposition home or self-care (01) ==
PROVIDERS: PCP Family Medicine; Visit Provider Anesthesiology
DX: M51.16 Intervertebral disc disorders with radiculopathy, lumbar region (principal); Z79.899 Other long term (current) drug therapy
CPT/HCPCS: 63688; 80048; 85025; 96374; C1820; J2405; J3370

== ENCOUNTER → 2021-12-22 10:02 | Outpatient (POV) | payer MEDICARE, MEDICAID, SELFPAY ==
--- NOTE | 2021-12-22 11:01 | EXP.PAIN.SOA ---
[facility] Pain Management SOAP Note Subjective:: Patient is a pleasant 71-year-old male who presents today for spinal cord stimulator generator replacement follow-up on 12/16/2021. We are currently treating the patient for degenerative disc disease of lumbar spine with lumbar radiculopathy symptoms, end-of-life spinal cord stimulator generator. Patient denies any problems following this procedure. He states he has done well overall and has not had to take any medications to help with the pain. Today he rates his pain a 3 out of 10. He states the pain is primarily in his low back that radiates into his lower extremities as well as his right knee. Patient denies any new trauma or injury. Patient denies any change in location or type of pain he experiences. Patient states he has had right knee injections in the past about 10 to 12 years ago. Patient states it did provide significant improvement of his symptoms. He is interested in a possible injection at this site. Patient is currently managed with pregabalin 225 mg twice a day by Dr. Leo Ravi's office. Patient denies any side effects from this medication. His Leeroy is [phone]. It is been reviewed and appropriate. Review of Systems: General: No recent weight changes, no fever, no sleep disturbances Respiratory: No cough, no shortness of air, no recurring pulmonary infections Cardiovascular/peripheral vascular: No chest pain, no palpitations, no edema, no shortness of breath Gastrointestinal: No new onset incontinence, normal bowel movements reported Genitourinary: No new onset incontinence Musculoskeletal: Low back pain Psychiatric: [Normal mood/affect] Neurological: [Denies weakness in extremities], [denies balance issues] Objective:: Physical Exam: General: Alert and oriented x3, no acute distress, pleasant and cooperative Lungs: Respirations even and unlabored, symmetrical chest expansion Eyes: PERRL Musculoskeletal: Flexion and extension of lumbar [spine] somewhat guarded secondary to pain, [antalgic gait noted] Neurological: Speech clear, no gross sensory deficit Skin: Clean, dry, cristofer intact, well approximated with no erythema Assessment:: Degenerative disc disease of lumbar spine with lumbar radiculopathy symptoms, end-of-life spinal cord stimulator Plan:: Patient has done well following his [employer] spinal cord stimulator generator change. Patient does continue to have limited range of motion of his lumbar spine. Patient's incision site is clean, dry, cristofer intact and well approximated with no erythema. I have counseled the patient to continue his 6-week restrictions and monitor for signs of infection. He will follow-up in 2 weeks to have his cristofer removed with Dermabond and Steri-Strips to be applied. I have discussed with the patient regarding a intra-articular knee injection. Risk and benefits were discussed with the patient. He would like to proceed forward. I will schedule the patient for a right knee intra-articular injection and at that date we will also remove his cristofer. Patient has been instructed to contact the clinic with any concerns before the next appointment. Dr. Hyman has reviewed this note and agrees with this plan of care. This note was dictated using voice recognition software and make contain errors or omissions. PFSH PFSH Medical History Allergies Arthritis COPD (chronic obstructive pulmonary disease) Gallbladder disease Gout History of back pain History of gastroesophageal reflux (GERD) Hypertension Sleep apnea Surgical History History of back surgery History of carpal tunnel surgery History of cholecystectomy History of hip replacement, total History of knee surgery Family History Other Cancer Coronary artery disease Hypertension Stroke Social History (Review
[2021-12-22 11:17] VITALS: BP 132/75; PULSE 82; RESP 18; TEMP 36.9; O2SAT 94; BMI 32.0
== END ==
PROVIDERS: PCP Family Medicine; Visit Provider Nurse Practitioner Family
DX: M51.16 Intervertebral disc disorders with radiculopathy, lumbar region (principal); T85.193A Other mechanical complication of implanted electronic neurostimulator, generator, initial encounter; Z96.82 Presence of neurostimulator
CPT/HCPCS: 99212; G0463

== ENCOUNTER 2021-12-30 11:58 | Day surgery (SDC) | payer MEDICARE, MEDICAID, SELFPAY ==
[2021-12-30 12:45] VITALS: BP 150/67; PULSE 71; RESP 20; TEMP 36.9; O2SAT 95; BMI 32.0
[2021-12-30 13:42] VITALS: BP 146/72; PULSE 72; RESP 18; O2SAT 98
[2021-12-30 13:43] VITALS: BP 146/72; PULSE 72; RESP 18; O2SAT 98
[2021-12-30 13:49] VITALS: BP 137/79; PULSE 56; RESP 20; O2SAT 96
--- NOTE | 2021-12-30 15:18 | EXP.PAIN.PRO ---
Procedure Date: 12/30/21 Time: 15:18 Anesthesiologist:: Silverio Hyman MD Complications:: None Pre-procedure Diagnosis:: Right knee pain with degenerative osteoarthritis. Low back pain with lumbar radiculopathy symptoms with recent replacement of his spinal cord stimulator generator Post-procedure Diagnosis:: Same Indications for Procedure:: This patient is a pleasant 71-year-old white male who recently had replacement of his [employer] spinal cord stimulator generator. His spinal cord stimulator was interrogated and reprogrammed today by the medical device sales representative. He is doing very well with his stimulator. He does also have some increasing right knee pain with degenerative osteoarthritis. We will do a right knee intra-articular injection today to help him with his pain symptoms. Procedure Details:: Right knee injection Informed consent was obtained risk and benefits of the procedure were explained to the patient. Patient was taken the procedure room. The right knee was prepped using ChloraPrep. A 25-gauge needle was used first medially then laterally to inject 10 mL bupivacaine 0.25% and Depo-Medrol 40 mg into the right knee joint. Patient tolerated the procedure well with no complications. Plan and Disposition:: We will follow-up with this patient in 2 weeks. Will reevaluate his symptoms at that time.
== END 2021-12-30 13:50 | disposition home or self-care (01) ==
LOC: SC.PAINP 11:59
PROVIDERS: PCP Family Medicine; Visit Provider Anesthesiology
DX: M17.11 Unilateral primary osteoarthritis, right knee (principal); M54.16 Radiculopathy, lumbar region
CPT/HCPCS: 20610; J1040

== ENCOUNTER → 2022-01-16 09:15 | Outpatient (POV) | payer MEDICARE, MEDICAID, SELFPAY ==
--- NOTE | 2022-01-16 09:32 | EXP.PAIN.SOA ---
[facility] Pain Management SOAP Note Subjective:: Patient is a pleasant 71-year-old male who presents today for follow-up of right knee intra-articular injection on 12/30/2021. We are currently treating the patient for degenerative disc disease of lumbar spine with lumbar radiculopathy symptoms, osteoarthritis right knee, recent replacement of spinal cord stimulator generator. Today the patient states he has had at least 75% improvement following this intra-articular injection. He states he feels like he is still continuing to get improvements of his symptoms and has been able to increase his activity with decreased pain symptoms. Today he rates his pain a 3 out of 10. He states his pain is primarily in his low back. Patient denies any new trauma or injury. Patient denies any change to the location or type of pain he experiences. Patient is managed with pregabalin 225 mg twice a day from Dr. Ravi's office. Patient denies any side effects from this medication. He states this medication does help some of his pain symptoms. His Leeroy is [id number]. It has been reviewed and is appropriate. Review of Systems: General: No recent weight changes, no fever, no sleep disturbances Respiratory: No cough, no shortness of air, no recurring pulmonary infections Cardiovascular/peripheral vascular: No chest pain, no palpitations, no edema, no shortness of breath Gastrointestinal: No new onset incontinence, normal bowel movements reported Genitourinary: No new onset incontinence Musculoskeletal: Low back pain Psychiatric: [Normal mood/affect] Neurological: [Denies weakness in extremities], [denies balance issues] Objective:: Physical Exam: General: Alert and oriented x3, no acute distress, pleasant and cooperative Lungs: Respirations even and unlabored, symmetrical chest expansion Eyes: PERRL Musculoskeletal: Flexion and extension of lumbar [spine] somewhat guarded secondary to pain, [antalgic gait noted] Neurological: Speech clear, no gross sensory deficit Assessment:: Degenerative disc disease of lumbar spine with lumbar radiculopathy symptoms, osteoarthritis right knee, recent replacement of spinal cord stimulator generator Plan:: Patient has had significant improvement of his pain symptoms regarding his right knee pain following this last injection. At this time the patient does not require any additional injective therapy. We will follow-up with the patient in 3 months. Patient will return to clinic in 3 months for reevaluation of symptoms and follow-up. Patient has been instructed to contact the clinic with any concerns before the next appointment. Dr. Hyman has reviewed this note and agrees with this plan of care. This note was dictated using voice recognition software and make contain errors or omissions. [facility] Medical History Allergies Arthritis COPD (chronic obstructive pulmonary disease) Gallbladder disease Gout History of back pain History of gastroesophageal reflux (GERD) Hypertension Sleep apnea Surgical History History of back surgery History of carpal tunnel surgery History of cholecystectomy History of hip replacement, total History of knee surgery Family History Other Cancer Coronary artery disease Hypertension Stroke Social History (Updated 12/30/21 @ 12:49 by Elida Grimaldo RN) Smoking Status: Former smoker years smoked: 6 how long ago did patient quit smoking: QUIT 40 YEARS AGO second hand exposure: No alcohol intake: current substance use type: denies use current occupational status: retired Travel in the last 8 weeks: None household members: spouse housing: house current occupational exposures/hazards: No caffeine: Yes
[2022-01-16 09:42] VITALS: BP 124/72; PULSE 65; RESP 18; O2SAT 93; BMI 32.0
== END ==
PROVIDERS: PCP Family Medicine; Visit Provider Nurse Practitioner Family
DX: M51.16 Intervertebral disc disorders with radiculopathy, lumbar region (principal); M17.11 Unilateral primary osteoarthritis, right knee
CPT/HCPCS: 99212; G0463

== ENCOUNTER → 2022-01-19 15:13 | Outpatient (CLI) | payer MEDICARE, MEDICAID, SELFPAY ==
[2022-01-19 15:41] LABS: Basophils # 0.1 K/mm3 (0-0.2); Basophils % 0.7 % (0.1-2.0); Eosinophils # 0.3 K/mm3 (0.0-0.4); Eosinophils % 5.1 % (0.1-12.0); Hematocrit 42.6 % (42.0-52.0); Lymphocytes # 1.6 K/mm3 (0.7-4.5); Lymphocytes % 24.1 % (10-50); Mean Corpuscular HGB Conc 30.5 g/dL (31.8-35.4); Mean Corpuscular Hemoglobin 28.9 pg (27.0-31.2); Mean Corpuscular Volume 94.9 fl (80-94); Monocytes # 0.4 K/mm3 (0.1-1.0); Monocytes % 5.7 % (1.7-9.3); Neutrophils # 4.3 K/mm3 (1.8-7.8); Neutrophils % 64.4 % (37.0-80.0); Platelet Count 258 K/mm3 (142-424); Red Blood Count 4.49 M/mm3 (4.60-6.20); Red Cell Distribution Width 14.2 % (11.5-17.5); White Blood Count 6.7 K/mm3 (4.8-10.8)
[2022-01-27 00:07] LABS: D001-IgE D pteronyssinus <0.10 kU/L (Class 0); D002-IgE D farinae <0.10 kU/L (Class 0); E001-IgE Cat Dander <0.10 kU/L (Class 0); E005-IgE Dog Dander <0.10 kU/L (Class 0); E072-IgE Mouse Urine <0.10 kU/L (Class 0); G002-IgE Bermuda Grass <0.10 kU/L (Class 0); G006-IgE Timothy Grass <0.10 kU/L (Class 0); I006-IgE Cockroach, German 0.14 kU/L (Class 0/I); Immunoglobulin E, Total 22 IU/mL (6-495); M001-IgE Penicillium chrysogen <0.10 kU/L (Class 0); M002-IgE Cladosporium herbarum <0.10 kU/L (Class 0); M003-IgE Aspergillus fumigatus <0.10 kU/L (Class 0); M006-IgE Alternaria alternata <0.10 kU/L (Class 0); T001-IgE Maple/Box Elder <0.10 kU/L (Class 0); T003-IgE Common Silver Birch <0.10 kU/L (Class 0); T006-IgE Cedar, Mountain <0.10 kU/L (Class 0); T007-IgE Oak, White <0.10 kU/L (Class 0); T008-IgE Elm, American <0.10 kU/L (Class 0); T010-IgE Walnut <0.10 kU/L (Class 0); T011-IgE Maple Leaf Sycamore <0.10 kU/L (Class 0); T014-IgE Cottonwood <0.10 kU/L (Class 0); T015-IgE Ash, White <0.10 kU/L (Class 0); T022-IgE Pecan, Hickory <0.10 kU/L (Class 0); T070-IgE White Mulberry <0.10 kU/L (Class 0); W001-IgE Ragweed, Short <0.10 kU/L (Class 0); W011-IgE Thistle, Russian <0.10 kU/L (Class 0); W014-IgE Pigweed, Common <0.10 kU/L (Class 0); W018-IgE Sheep Sorrel <0.10 kU/L (Class 0)
== END ==
PROVIDERS: PCP Family Medicine; Visit Provider Internal Medicine Pulmonary Disease
DX: J45.909 Unspecified asthma, uncomplicated (principal)
CPT/HCPCS: 36415; 82785; 85025; 86003

== ENCOUNTER → 2022-02-16 08:13 | Outpatient (CLI) | payer MEDICARE, MEDICAID, SELFPAY ==
--- NOTE | 2022-02-16 08:14 | CA_ITS ---
APPROVED REPORT EXAM: Comprehensive 2D, Doppler, and color-flow Echocardiogram Photographs Curator: Lubna Mejia RVT Ht: 6 ft 5 in Wt: 270lbs BSA: 2.54 BP: 130/67 mmHg Indications: SOA,COPD,MURMUR,HTN,MICHAELLE,GERD 2D Dimensions IVSd 1.27 cm M: 0.6-1.2 LVEF (Visual) 56.20 % PWd 0.73 cm M: 0.6 - 1.2 LA Volume 52.00 mL LVDd 5.27 cm M: 4.2 - 5.9 LA Volume Index 20.47 mL/m2 (M/F) 16-34 LVDs 3.71 cm M: 2.5 - 4.0 LVOT 2.39 cm (M/F) 1.5-2.5 M-Mode Dimensions LA Diam 5.09 cm (1.9-4.0) Ao Diam 3.32 cm (2.0-3.7) TAPSE 3.06 (<1.7) LV Diastology E Decel Time 250.00 (160-240 msec) E/A Ratio 0.9 MED E' 8.30 (< 7 cm/sec) E'/MED E' Ratio 11.13 (>14) LAT E' 8.90 (<10 cm/sec) E/LAT E' Ratio 10.38 (>14) Aortic Valve LVOT Max 97.00 (70-110 cm/s) LVOT VTI 21.53 cm AoV Peak Imtiaz. 186.00 (50-130 cm/s) AO Peak GR. 13.80 mmHg AO Mean GR. 6.70 (<5 mmHg) AO VTI 36.62 (18-25 cm) HAYDEN (VTI) 2.64 (2.5-4.5 cm2) Mitral Valve MV E Max Imtiaz. 92.00 (40-130 cm/s) MV A Velocity 104.00 (40-130 cm/s) E/A Ratio 0.89 MV Decel. Time 250.00 (160-240 ms) MV PHT 73.00 ms Pulmonary Valve PV Peak Velocity 81.00 (50-150 cm/s) Left Ventricle Left atrium is mildly enlarged, left ventricle is normal size mild concentric left ventricular hypertrophy, estimated ejection fraction 55% with no regional wall motion abnormality, grade 1 diastolic dysfunction seen without tissue Doppler evidence of raise left atrial pressure. Right Ventricle Right atrium and right ventricle are normal size and contractility. Aortic Valve Aortic valve is thickened and calcified without Doppler evidence of aortic stenosis or aortic insufficiency. Mitral Valve Mitral valve has mitral calcification, leaflets are minimally thickened, there is no mitral stenosis, there is mild mitral regurgitation. Tricuspid Valve Tricuspid valve grossly normal, there is mild tricuspid regurgitation Tricuspid regurgitation jet velocity is inadequate for calculation of the right ventricular systolic pressure. Pulmonic Valve Pulmonic valve is poorly visualized. Great Vessels Aortic root is normal size. Inferior vena cava is poorly visualized. Pericardium No significant pericardial effusion noted. Conclusion 1. Mildly enlarged atrium, normal left ventricular size, mild concentric left ventricular hypertrophy, estimated ejection fraction 55% with no regional wall motion abnormality, grade 1 diastolic dysfunction seen without tissue Doppler evidence of raise left atrial pressure. 2. Thickened and calcified aortic valve without aortic stenosis or aortic insufficiency. 3. Mild mitral and tricuspid regurgitation. 4. No significant pericardial effusion. 5. Inferior vena cava is poorly visualized. Electronically signed by : Nicolas Hassan MD 02/17/2022 09:00:56
--- NOTE | 2022-02-16 09:57 | PC.NURSE ---
PFT and 6 Minute Walk Test completed on Room Air, without incident. Albuterol 0.083% given via HHN, per protocol, Pt tolerated tx well.
== END ==
PROVIDERS: PCP Family Medicine; Visit Provider Internal Medicine Pulmonary Disease
DX: R06.09 Other forms of dyspnea (principal); R01.1 Cardiac murmur, unspecified; R06.02 Shortness of breath
CPT/HCPCS: 93306; 94060; 94618; 94726; 94729

== ENCOUNTER → 2022-03-24 13:24 | Outpatient (POV) | payer MEDICARE, MEDICAID, SELFPAY ==
[2022-03-24 13:45] VITALS: BP 113/56; PULSE 65; RESP 20; TEMP 36.7; O2SAT 93; BMI 32.0
--- NOTE | 2022-03-24 14:35 | EXP.PAIN.PRO ---
Procedure Date: 03/24/22 Time: 14:35 Anesthesiologist:: Silverio Hyman MD Complications:: None Pre-procedure Diagnosis:: Degenerative disc disease of lumbar spine with lumbar radiculopathy symptoms with intrathecal bupivacaine pain pump in place Post-procedure Diagnosis:: Same Indications for Procedure:: Patient pleasant 71-year-old white male who we are treating for low back pain with lumbar radiculopathy symptoms. He currently has an intrathecal bupivacaine pain pump in place. He is on multiple rates getting 4 mg from 7 PM to 6 AM and 2.75 mg from 6 AM to 7 PM. He feels like he is needs a little bit more medication. We will increase both time periods to 4.25 mg from 7 PM to 6 AM and 3 mg from 6 AM to 7 PM. Patient continues with [facility] home refill service. Procedure Details:: Interrogation and adjustment of intrathecal pain pump infusion Informed consent was obtained risk and benefits of the procedure were explained to the patient. Patient was taken the procedure room. The pump was interrogated. Patient's multiple rates were increased to 4.25 mg from 7 PM to 6 AM and 3 mg from 6 AM to 7 PM. Patient tolerated the procedure well with no complications. Total daily dose was increased to 7.25 mg/day. Plan and Disposition:: We will send this information to the [facility] home health refill nurse. We will follow-up with this patient in 6 months.
== END | disposition home or self-care (01) ==
PROVIDERS: PCP Family Medicine; Visit Provider Anesthesiology
DX: M51.16 Intervertebral disc disorders with radiculopathy, lumbar region (principal); Z45.1 Encounter for adjustment and management of infusion pump
CPT/HCPCS: 62368

== ENCOUNTER → 2022-04-17 09:03 | Outpatient (POV) | payer MEDICARE, MEDICAID, SELFPAY ==
--- NOTE | 2022-04-17 09:41 | EXP.PAIN.SOA ---
[facility] Pain Management SOAP Note Subjective:: Patient is a pleasant 71-year-old male who presents today for follow-up. We are currently treating the patient for degenerative disc disease of lumbar spine with lumbar radiculopathy symptoms, osteoarthritis right knee, recent replacement of spinal cord stimulator generator, postlaminectomy syndrome lumbar spine. Today he rates his pain a 4 out of 10. Patient denies any new trauma or injury. Patient denies any change location or type of pain that he experiences. Patient states he does feel like he is having more significant back pain and describes it as a aching, throbbing sensation that is worse with increased activity. Patient states that he frequently has to take multiple breaks due to his pain. Patient is interested in injections at today's visit. Patient is currently managed with a intrathecal bupivacaine pump with multiple rates. Patient does have his 6 AM to 7 PM 3.3 mg and his 7 PM to 6 AM 4.675 mg. Patient denies any side effects from this medication. He states that he did just have an increase on Sunday however he has not noticed significant improvement at this time. Patient is managed with a spinal cord stimulator and states it was just reprogrammed a couple months ago. Patient denies any problems with this device. He is currently managed with pregabalin 225 mg twice a day from his primary care doctor. Patient denies any side effects from this medication. His Leeroy is [id number]. Its been reviewed and appropriate. Review of Systems: General: No recent weight changes, no fever, no sleep disturbances Respiratory: No cough, no shortness of air, no recurring pulmonary infections Cardiovascular/peripheral vascular: No chest pain, no palpitations, no edema, no shortness of breath Gastrointestinal: No new onset incontinence, normal bowel movements reported Genitourinary: No new onset incontinence Musculoskeletal: Low back pain Psychiatric: [Normal mood/affect] Neurological: [Denies weakness in extremities], [denies balance issues] Objective:: Physical Exam: General: Alert and oriented x3, no acute distress, pleasant and cooperative Lungs: Respirations even and unlabored, symmetrical chest expansion Eyes: PERRL Musculoskeletal: Flexion and extension of lumbar [spine] somewhat guarded secondary to pain, [antalgic gait noted] Neurological: Speech clear, no gross sensory deficit [place] [id number] [place] [address] [address] Scan Report Signed Patient: Haile Clancy MR#: [id number] : 1950 Acct:[id number] Age/Sex: 70 / M ADM Date: 02/11/21 Loc: RAd Attending Dr: Jenna Rivera APRN Ordering Physician: Jenna Rivera APRN Date of Service: 02/11/21 Procedure(s): CT lumbar spine wo con Accession Number(s): [id number] cc: Izaiah Gibbs MD; Jenna Rivera APRN; Leo Ravi MD~ PROCEDURE INFORMATION: Exam: CT Lumbar Spine Without Contrast Exam date and time: 02/11/2021 10:37 AM Age: 70 years old Clinical indication: Low back pain; Prior surgery; Surgery date: 6+ months; Patient HX: H/o 3 back surgery; Additional info: Back, leg pain TECHNIQUE: Imaging protocol: Computed tomography images of the lumbar spine without contrast. Radiation optimization: All CT scans at this facility use at least one of these dose optimization techniques: automated exposure control; mA and/or kV adjustment per patient size (includes targeted exams where dose is matched to clinical indication); or iterative reconstruction. 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 Levoconvex lumbar curvature centered at L2-L3. Mild grade 1 retrolisthesis from L1-L2 through L3-L4. Chronic compression fracture of T11 with cement augmentation. Chronic mild anterior wedging of T12 is unchanged with
[2022-04-17 10:09] VITALS: BP 116/73; PULSE 65; RESP 18; O2SAT 98; BMI 32.0
== END ==
PROVIDERS: PCP Family Medicine; Visit Provider Nurse Practitioner Family
DX: M51.16 Intervertebral disc disorders with radiculopathy, lumbar region (principal); M17.11 Unilateral primary osteoarthritis, right knee; M96.1 Postlaminectomy syndrome, not elsewhere classified; Z96.82 Presence of neurostimulator
CPT/HCPCS: 99212; G0463

== ENCOUNTER 2022-04-25 08:05 | Day surgery (SDC) | payer MEDICARE, MEDICAID, SELFPAY ==
[2022-04-25 08:21] VITALS: BP 149/92; PULSE 70; RESP 18; TEMP 36.2; O2SAT 94; BMI 32.0
[2022-04-25 08:40] VITALS: BP 138/72; PULSE 65; RESP 18; O2SAT 98
[2022-04-25 08:41] VITALS: BP 138/72; PULSE 65; RESP 18; O2SAT 98
[2022-04-25 08:47] VITALS: BP 120/79; PULSE 64; RESP 18; O2SAT 94
--- NOTE | 2022-04-25 09:50 | EXP.PAIN.PRO ---
Procedure Date: 04/25/22 Time: 09:00 Anesthesiologist:: Eyad Biggs CRNA Complications:: None Pre-procedure Diagnosis:: Degenerative disc disease lumbar spine multilevels. Lumbar radiculopathy Post-procedure Diagnosis:: Same. Indications for Procedure:: Very pleasant 71-year-old who comes our clinic today with low back pain that he describes as constant, dull, aching. Also bilateral hip and leg radicular symptoms. Procedure Details:: Procedure: Lumbar epidural steroid injection under fluoroscopy Informed consent was obtained and the risks and benefits of the procedure were explained to the patient. The patient was taken to the procedure room and noninvasive monitors placed, including noninvasive blood pressure cuff and pulse oximeter. The back was viewed using C-arm Fluoroscopy and prepped using Chloraprep as a cleansing solution and the L4-L5 interspace was palpated. Skin and subcutaneous tissues were anesthetized using lidocaine 1.5% and a 25-gauge needle. After this, an 18-gauge Touhy epidural needle was placed into the L4-L5 interspace and advanced using fluoroscopic guidance and loss of resistance to air until the epidural space was encountered. After confirmation of needle placement in the epidural space, with dye, a solution containing normal saline, 3 mL and Depo-Medrol 80 mg were incrementally injected into the lumbar epidural space. The patient tolerated the procedure well with no complications. The patient was observed in the Pain Clinic and then discharged home neurologically intact. Plan and Disposition:: Patient was discharged out incident.
== END 2022-04-25 08:47 | disposition home or self-care (01) ==
PROVIDERS: PCP Family Medicine; Visit Provider Nurse Anesthetist, Certified Registered
DX: M51.16 Intervertebral disc disorders with radiculopathy, lumbar region (principal)
CPT/HCPCS: 62323; J1040

== ENCOUNTER → 2022-05-11 11:15 | Outpatient (POV) | payer MEDICARE, MEDICAID, SELFPAY ==
[2022-05-11 11:30] VITALS: BP 127/76; PULSE 67; RESP 18; O2SAT 97; BMI 32.0
--- NOTE | 2022-05-11 11:35 | EXP.PAIN.PRO ---
Procedure Date: 05/11/22 Time: 11:35 Anesthesiologist:: Ana Ko APRN Complications:: None Pre-procedure Diagnosis:: Degenerative disc disease of lumbar spine multilevels with lumbar radiculopathy symptoms, osteoarthritis right knee, recent replacement of spinal cord stimulator generator, postlaminectomy syndrome lumbar spine Post-procedure Diagnosis:: Same Indications for Procedure:: Patient is a pleasant 71-year-old male who presents today for intrathecal adjustment and reprogram. We are currently treating the patient for degenerative disc disease of lumbar spine multilevels with lumbar radiculopathy symptoms, osteoarthritis right knee, recent replacement of spinal cord stimulator generator, postlaminectomy syndrome lumbar spine. Today he rates his pain a 4 out of 10. Patient denies any new trauma or injury. He states over the last couple of days he has noticed increased numbness in his ankles and feet. He states that 1 day he just woke up and had to use a cane for ambulation due to having difficulty walking. Patient does think he may need additional increase in his medication. Patient denies any edema or other side effects from his intrathecal pain medication. He is currently managed with bupivacaine 15 mg/mL with a total dose of 7.975 mg/day. Patient states in the past he did have 1 episode that he was given too much medication and had increased confusion. Patient states this is not like that episode so he does believe he does not have enough medication in his pump to provide adequate relief of his neuropathy symptoms. He does state that this is constant sensation and he feels like his feet are just not present. He frequently has to be very cautious about walking to make sure he does not stumble. He does state that this issue does present more prominent at night. He frequently has trouble going to sleep due to this symptoms. Patient is prescribed pregabalin 225 mg twice a day from his primary care doctor. Patient denies any side effects from this medication. Patient was previously prescribed compounding cream in the past however it was not covered by his insurance so he did not proceed forward with this. Patient states he does use Voltaren on his feet and it does work however only typically provides about an hour of relief. He does state that he has tried compression socks in the past and made no change in his symptoms. Patient has not had physical therapy for years. He states his last lumbar imaging has been a while. His Leeroy is [id number]. Its been reviewed and appropriate. Review of Systems: General: No recent weight changes, no fever, no sleep disturbances Respiratory: No cough, no shortness of air, no recurring pulmonary infections Cardiovascular/peripheral vascular: No chest pain, no palpitations, no edema, no shortness of breath Gastrointestinal: No new onset incontinence, normal bowel movements reported Genitourinary: No new onset incontinence Musculoskeletal: Lumbar Psychiatric: [Normal mood/affect] Neurological: [Denies weakness in extremities], [denies balance issues] Procedure Details:: Informed consent was obtained and the risk and benefits of the procedure were explained to the patient. Patient was taken to the procedure room where noninvasive monitoring was placed including noninvasive blood pressure cuff and pulse oximeter. Patient's pump was interrogated and was reprogrammed to bupivacaine 8.35 mg/day. The patient tolerated the procedure well with no complications. Plan and Disposition:: Patient is experiencing significant numbness in his ankles and feet. I have discussed with the patient that he may benefit from physical therapy to help with weakness and trouble walking however he is not interested in this option. I will order a CT without contrast of his lumbar spine to confirm there are no significant changes from his last imaging in 2020. We did give him a 5% increase during today's visit and he will follow
== END | disposition home or self-care (01) ==
PROVIDERS: PCP Family Medicine; Visit Provider Nurse Practitioner Family
DX: M51.16 Intervertebral disc disorders with radiculopathy, lumbar region (principal); M96.1 Postlaminectomy syndrome, not elsewhere classified; M17.11 Unilateral primary osteoarthritis, right knee; Z97.8 Presence of other specified devices
CPT/HCPCS: 62368; 99213; G0463

== ENCOUNTER → 2022-05-19 09:32 | Outpatient (POV) | payer MEDICARE, MEDICAID, SELFPAY ==
[2022-05-19 09:50] VITALS: BP 123/81; PULSE 69; RESP 18; O2SAT 97; BMI 32.0
--- NOTE | 2022-05-19 10:15 | EXP.PAIN.PRO ---
Procedure Date: 05/19/22 Time: 10:16 Anesthesiologist:: Ana Ko APRN Complications:: None Pre-procedure Diagnosis:: Degenerative disc disease of lumbar spine multilevels with lumbar radiculopathy symptoms, osteoarthritis right knee, recent replacement of spinal cord stimulator generator, postlaminectomy syndrome lumbar spine Post-procedure Diagnosis:: Same Indications for Procedure:: Patient is a pleasant 71-year-old male who presents today for intrathecal pain pump reprogramming adjustment and follow-up. The patient is being treated for degenerative disc disease of lumbar spine multilevels with lumbar radiculopathy symptoms, osteoarthritis right knee, recent replacement of spinal cord stimulator generator, postlaminectomy syndrome of lumbar spine. Patient is currently being managed with bupivacaine 15 mg/mL with a daily dose of 8.35 mg/day. Patient denies any side effects from this medication. Patient rates pain a 5 out of 10. Patient states he continues to have numbness and tingling in his bilateral feet. Patient states his spinal cord stimulator does do well however it cannot seem to go past his ankles to provide pain relief. Patient was previously ordered a CT without contrast of his lumbar spine however they have not been able to find the recent order and are requesting a new one today. Patient is also wanting to know whether a MRI would be more beneficial. At her last visit I did order the patient ropinirole 0.5 mg at bedtime to help with some of his additional cramping and tingling in his lower extremities and feet however he states he did not notice significant improvement. He also states that this medication was not covered by his insurance. He does state this is a constant pain that is worse at night. He does have to frequently pay close attention and back up scan coordinator his feet in order to prevent stumbling. Patient does state his feet neuropathy has seemed a little worse since our last visit where we did give a 5% increase. Drug screen is appropriate. Leeroy [id number] has been reviewed and is appropriate. Physical exam General: Alert and oriented x3, no acute distress, pleasant and cooperative Lungs: Respirations even and unlabored, symmetrical chest expansion Eyes: PERRL Musculoskeletal: Flexion and extension of lumbar [spine] somewhat guarded secondary to pain, [antalgic gait noted] Neurological: Speech clear, no gross sensory deficit Procedure Details:: Informed consent was obtained and the risk and benefits of the procedure were explained to the patient. Patient was taken to the procedure room where noninvasive monitoring was placed including noninvasive blood pressure cuff and pulse oximeter. Patient's pump was interrogated and was reprogrammed to bupivacaine 7.93 mg/day. The patient tolerated the procedure well with no complications. Plan and Disposition:: I have discussed with the patient that we will decrease his pump during today's visit and follow-up at the next appointment to see if he had any improvement in his neuropathy symptoms of his feet. I will discontinue the ropinirole and change it to pramipexole 0.5 mg twice daily and provide a 14-day supply of this medication. I will order the patient a MRI without contrast of his lumbar spine. I have counseled the patient that he will have to have his pump emptied prior to this imaging. Patient does have a MRI compatible [employer] spinal cord stimulator in place. Patient has had his SCS reprogrammed within the last 2 months and is doing fine. Patient will return to clinic following his MRI imaging for reevaluation of symptoms and plan of care. Patient has been instructed to contact the clinic with any concerns before the next appointment. Dr. Hyman has reviewed this note and agrees with this plan of care. This note was dictated using voice recognition software and make contain errors or omissions. -- It Is medically necessary for this patient to continue to
== END | disposition home or self-care (01) ==
PROVIDERS: PCP Family Medicine; Visit Provider Nurse Practitioner Family
DX: M51.16 Intervertebral disc disorders with radiculopathy, lumbar region (principal); M96.1 Postlaminectomy syndrome, not elsewhere classified; M17.11 Unilateral primary osteoarthritis, right knee; Z96.82 Presence of neurostimulator; Z45.1 Encounter for adjustment and management of infusion pump
CPT/HCPCS: 62368; 99213; G0463

== ENCOUNTER → 2022-07-17 09:13 | Outpatient (POV) | payer MEDICARE, MEDICAID, SELFPAY ==
--- NOTE | 2022-07-17 10:14 | EXP.PAIN.PRO ---
Procedure Date: 07/17/22 Time: 10:28 Anesthesiologist:: Ana Ko APRN Complications:: None Pre-procedure Diagnosis:: Degenerative disc disease of lumbar spine multilevels with lumbar radiculopathy symptoms, osteoarthritis right knee, recent replacement of spinal cord stimulator generator, postlaminectomy syndrome lumbar spine Post-procedure Diagnosis:: Same Indications for Procedure:: Patient is a pleasant 71-year-old male who presents today for intrathecal pain pump reprogram and adjust. The patient is being treated for degenerative disc disease of lumbar spine multilevels with lumbar radiculopathy symptoms, osteoarthritis right knee, recent replacement of spinal cord stimulator generator, postlaminectomy syndrome lumbar spine. Patient is currently being managed with bupivacaine 15 mg/mL with a daily dose of 7.2 mg/day. Patient states that he has been experiencing worsening numbness and tingling in his bilateral calves and feet. Patient states that he was refilled on the and turned down due to the increased neuropathy. He states he did have approximately 4 to 5 days that were better however then on the of this month and last night he had bad spells of increased numbness. He states that he feels like his feet are not there and he frequently stumbles. Patient states his pain level is still continuing to do well. Patient rates pain a 5 out of 10. Drug screen is appropriate. Leeroy has been reviewed and is appropriate. Physical exam General: Alert and oriented x3, no acute distress, pleasant and cooperative Lungs: Respirations even and unlabored, symmetrical chest expansion Eyes: PERRL Musculoskeletal: Flexion and extension of lumbar [spine] somewhat guarded secondary to pain, [antalgic gait noted] Neurological: Speech clear, no gross sensory deficit Procedure Details:: Informed consent was obtained and the risk and benefits of the procedure were explained to the patient. Patient was taken to the procedure room where noninvasive monitoring was placed including noninvasive blood pressure cuff and pulse oximeter. Patient's pump was interrogated and was reprogrammed to bupivacaine 6.48 mg/day. The patient tolerated the procedure well with no complications. Plan and Disposition:: Patient tolerated his intrathecal decrease with no problems or complications. Patient will return to clinic in 1 week for reevaluation and possible reprogram and adjustment of his intrathecal pain pump. Patient has been instructed to contact the clinic with any concerns before the next appointment. Dr. Hyman has reviewed this note and agrees with this plan of care. This note was dictated using voice recognition software and make contain errors or omissions. -- It Is medically necessary for this patient to continue to have their intrathecal pump refilled at regular intervals. This patient had an intrathecal pain pump implanted after meeting criteria of chronic intractable pain for greater than 3 months and failing conservative treatments. Patient has committed and been compliant to the treatment plan and all planned follow up care. Since implantation of the intrathecal pain pump, the patient has had decreased pain and been more functional. Oral medications have been reduced including intake of oral opioids. Patient continues to do well with intrathecal therapy with decrease in pain symptoms and increase in functional status. Stopping intrathecal medications can lead to life threatening withdrawal, seizures, cardiac arrest, severe pain, and possible . Pumps that are not refilled at regular intervals can be damages and cause and need for replacement. We continually titrate dose and concentration to optimize pain relief and function. We are limited in concentration for certain drugs to safely deliver medications through the pump and stay within the recommendations from the Pol[employer] Consensus Committee Guidelines. Depending on dose and concentration t
[2022-07-17 15:14] VITALS: BP 114/66; PULSE 65; RESP 18; O2SAT 97; BMI 32.0
== END | disposition home or self-care (01) ==
PROVIDERS: PCP Family Medicine; Visit Provider Nurse Practitioner Family
DX: Z45.1 Encounter for adjustment and management of infusion pump (principal); M51.16 Intervertebral disc disorders with radiculopathy, lumbar region; M17.11 Unilateral primary osteoarthritis, right knee; M96.1 Postlaminectomy syndrome, not elsewhere classified
CPT/HCPCS: 62368; 99213; G0463

== ENCOUNTER → 2022-07-24 08:02 | Outpatient (POV) | payer MEDICARE, MEDICAID, SELFPAY ==
[2022-07-24 08:06] VITALS: BP 133/76; PULSE 60; RESP 18; O2SAT 98; BMI 32.0
--- NOTE | 2022-07-24 08:40 | EXP.PAIN.PRO ---
Procedure Date: 07/24/22 Time: 08:50 Anesthesiologist:: Ana Ko APRN Complications:: None Pre-procedure Diagnosis:: Degenerative disc disease of lumbar spine multilevels with lumbar radiculopathy symptoms, osteoarthritis right knee, recent SCS generator replacement, postlaminectomy syndrome Post-procedure Diagnosis:: Same Indications for Procedure:: Patient is a pleasant 71-year-old male who presents today for intrathecal pain pump reprogram and adjustments and follow-up. The patient is being treated for degenerative disc disease of lumbar spine multilevels with lumbar radiculopathy symptoms, osteoarthritis right knee, recent SCS generator replacement, postlaminectomy syndrome. Patient is currently being managed with bupivacaine 15 mg/mL with a daily dose of 6.48 mg/day. Patient denies any side effects from this medication. Patient rates pain a 4 out of 10. Patient denies any new trauma or injury. Patient denies any change to location or type of pain he experiences. He states since our last visit he has not really had any increased leg neuropathy episodes. He states that it has been only random times and seems unrelated to increased activity that he has noticed this. He states that his spinal cord stimulator was recently reprogrammed within the last couple of months and that this has provided additional improvement of these leg symptoms. He states he just typically has to lay there in bed longer in order for his spinal cord stimulator to provide additional relief. He is currently managed with pregabalin 225 mg twice a day from his primary care doctor. Drug screen is appropriate. Leeroy [id number] has been reviewed and is appropriate. Physical exam General: Alert and oriented x3, no acute distress, pleasant and cooperative Lungs: Respirations even and unlabored, symmetrical chest expansion Eyes: PERRL Musculoskeletal: Flexion and extension of lumbar [spine] somewhat guarded secondary to pain, [antalgic gait noted] Neurological: Speech clear, no gross sensory deficit Procedure Details:: Informed consent was obtained and the risk and benefits of the procedure were explained to the patient. Patient was taken to the procedure room where noninvasive monitoring was placed including noninvasive blood pressure cuff and pulse oximeter. Patient's pump was interrogated and was reprogrammed to bupivacaine 5.84 mg/day. The patient tolerated the procedure well with no complications. Plan and Disposition:: Patient was decreased today without any complications. Patient will be started on tizanidine 4 mg at bedtime and given a 2-week supply of this medication. Patient will return to clinic in 2 weeks for reevaluation of symptoms and plan of care. Patient has been instructed to contact the clinic with any concerns before the next appointment. Dr. Hyman has reviewed this note and agrees with this plan of care. This note was dictated using voice recognition software and make contain errors or omissions. -- It Is medically necessary for this patient to continue to have their intrathecal pump refilled at regular intervals. This patient had an intrathecal pain pump implanted after meeting criteria of chronic intractable pain for greater than 3 months and failing conservative treatments. Patient has committed and been compliant to the treatment plan and all planned follow up care. Since implantation of the intrathecal pain pump, the patient has had decreased pain and been more functional. Oral medications have been reduced including intake of oral opioids. Patient continues to do well with intrathecal therapy with decrease in pain symptoms and increase in functional status. Stopping intrathecal medications can lead to life threatening withdrawal, seizures, cardiac arrest, severe pain, and possible . Pumps that are not refilled at regular intervals can be damages and cause and need for replacement. We continually titrate dose and concentration to optimi
== END | disposition home or self-care (01) ==
PROVIDERS: Visit Provider Nurse Practitioner Family
DX: Z45.1 Encounter for adjustment and management of infusion pump (principal); M51.16 Intervertebral disc disorders with radiculopathy, lumbar region; M96.1 Postlaminectomy syndrome, not elsewhere classified; M17.11 Unilateral primary osteoarthritis, right knee
CPT/HCPCS: 62368; 99213; G0463

== ENCOUNTER → 2022-07-28 07:15 | Outpatient (CLI) | payer MEDICARE, MEDICAID, SELFPAY ==
--- NOTE | 2022-07-28 07:19 | CT_ITS ---
FINAL REPORT TECHNIQUE: Axial imaging of the lumbar spine was obtained without contrast. Reformatted images were also obtained and reviewed.This study was performed with techniques to keep radiation doses as low as reasonably achievable, (ALARA). Individualized dose reduction techniques using automated exposure control or adjustment of mA and/or kV according to the patient's size were employed. CLINICAL HISTORY: LBP COMPARISON: 02/11/2021 FINDINGS: There is a moderate, chronic T11 compression fracture with changes of kyphoplasty. There is no acute bony abnormality. Moderate to severe degenerative changes are seen. There is mild retrolisthesis of L1 on L2, L2 on L3 and L3 on L4. Vacuum disc phenomena is seen at multiple levels. There is levoscoliosis. Spinal stimulators are noted. T11-12: Annular disc bulge with facet arthropathy and osteophytes. There is severe bilateral neural foraminal narrowing. T12-L1: Annular disc bulge with facet arthropathy and osteophytes. There is mild right neural foraminal narrowing. L1-2: Annular disc bulge with facet arthropathy and osteophytes. There is severe right and moderate left neural foraminal narrowing. There is mild central canal stenosis with AP diameter of the thecal sac measuring 7 mm. L2-3: Annular disc bulge with facet arthropathy and osteophytes. There is severe right and moderate left neural foraminal narrowing. L3-4: Postoperative changes of L3 laminectomies. There is annular disc bulge with facet arthropathy and osteophytes with severe bilateral neural foraminal narrowing. L4-5: Postoperative changes of L4 laminectomies. There is annular disc bulge with facet arthropathy and osteophytes. There is severe bilateral neural foraminal narrowing. L5-S1: Postoperative changes of L5 laminectomies. There is annular disc bulge with facet arthropathy and osteophytes. There is mild right and moderate left neural foraminal narrowing. IMPRESSION: Multilevel degenerative and postoperative changes, stable from prior exam. Reviewed, Interpreted and Dictated by Mason Cintron III, MD Transcribed by Brandee Dimas Authenticated and [facility]
== END ==
PROVIDERS: PCP Family Medicine; Visit Provider Nurse Practitioner Family
DX: M54.50 Low back pain, unspecified (principal)
CPT/HCPCS: 72131

== ENCOUNTER → 2022-08-07 08:53 | Outpatient (POV) | payer MEDICARE, MEDICAID, SELFPAY ==
[2022-08-07 10:15] VITALS: BP 127/66; PULSE 67; RESP 18; O2SAT 97; BMI 30.8
--- NOTE | 2022-08-07 10:47 | EXP.PAIN.SOA ---
[facility] Pain Management SOAP Note Subjective:: Patient is a pleasant 71-year-old male who presents today for lumbar CT follow-up. We are currently treating the patient for degenerative disc disease of lumbar spine multilevels with lumbar radiculopathy symptoms, osteoarthritis right knee, recent spinal cord stimulator generator replacement, postlaminectomy syndrome. Today he rates his pain a 3 out of 10. At our last visit we did decrease his intrathecal pump due to increased numbness and weakness in his bilateral legs. He does state that this has improved and that he is doing well currently with his intrathecal medication. He is currently managed with bupivacaine 15 mg/mL with a daily dose of 5.84 mg/day. Patient denies any additional side effects. He does state that he continues to have low back pain on a daily basis and describes it as an aching, throbbing sensation that is worse with increased activity. He does state this interferes with his ability perform activities of daily living such as cooking and cleaning. He also states that it is difficult even to ambulate due to the pain. He states frequently he has decreased pain while sitting however once he is up standing or walking his pain is severe. Patient does frequently have to lean to provide a little additional relief. Patient states his final cord stimulator is doing well and does not need any additional adjustments. Patient has had injective therapy in the past and states it did give good relief however only short-term. Patient does have a history of back surgery and also believes he has had a lumbar decompression by Dr. Adrian. Patient is managed with pregabalin 225 mg twice a day from Dr. Ravi's office. Patient denies any side effects from this medication. His Leeroy is [id number]. Its been reviewed and appropriate. Review of Systems: General: No recent weight changes, no fever, no sleep disturbances Respiratory: No cough, no shortness of air, no recurring pulmonary infections Cardiovascular/peripheral vascular: No chest pain, no palpitations, no edema, no shortness of breath Gastrointestinal: No new onset incontinence, normal bowel movements reported Genitourinary: No new onset incontinence Musculoskeletal: Low back pain Psychiatric: [Normal mood/affect] Neurological: [Denies weakness in extremities], [denies balance issues] Objective:: Physical Exam: General: Alert and oriented x3, no acute distress, pleasant and cooperative Lungs: Respirations even and unlabored, symmetrical chest expansion Eyes: PERRL Musculoskeletal: Flexion and extension of lumbar [spine] somewhat guarded secondary to pain, [antalgic gait noted] Neurological: Speech clear, no gross sensory deficit FINAL REPORT TECHNIQUE: Axial imaging of the lumbar spine was obtained without contrast. Reformatted images were also obtained and reviewed.This study was performed with techniques to keep radiation doses as low as reasonably achievable, (ALARA). Individualized dose reduction techniques using automated exposure control or adjustment of mA and/or kV according to the patient's size were employed. CLINICAL HISTORY: LBP COMPARISON: 02/11/2021 FINDINGS: There is a moderate, chronic T11 compression fracture with changes of kyphoplasty.? There is no acute bony abnormality. Moderate to severe degenerative changes are seen.? There is mild retrolisthesis of L1 on L2, L2 on L3 and L3 on L4.? Vacuum disc phenomena is seen at multiple levels.? There is levoscoliosis. Spinal stimulators are noted.? T11-12: Annular disc bulge with facet arthropathy and osteophytes.? There is severe bilateral neural foraminal narrowing.? ? T12-L1: Annular disc bulge with facet arthropathy and osteophytes.? There is mild right neural foraminal narrowing.? ? L1-2:? Annular disc bulge with facet arthropathy and osteophytes.? There is severe right and moderate left neural foraminal narrowing.? There is mild central canal stenosis with AP diame
== END ==
PROVIDERS: PCP Family Medicine; Visit Provider Nurse Practitioner Family
DX: M51.16 Intervertebral disc disorders with radiculopathy, lumbar region (principal); M48.062 Spinal stenosis, lumbar region with neurogenic claudication; M96.1 Postlaminectomy syndrome, not elsewhere classified; M17.11 Unilateral primary osteoarthritis, right knee; Z96.82 Presence of neurostimulator
CPT/HCPCS: 99212; G0463

== ENCOUNTER 2022-08-15 08:01 | Day surgery (SDC) | payer MEDICARE, MEDICAID, SELFPAY ==
[2022-08-15 08:20] VITALS: BP 118/76; PULSE 67; RESP 18; TEMP 36.6; O2SAT 92; BMI 30.8
[2022-08-15 08:38] VITALS: BP 130/81; PULSE 62; RESP 17; O2SAT 94
[2022-08-15 08:39] VITALS: BP 130/81; PULSE 54; RESP 17; O2SAT 94
[2022-08-15 08:50] VITALS: BP 124/76; PULSE 56; RESP 18; O2SAT 92
--- NOTE | 2022-08-15 08:51 | EXP.PAIN.PRO ---
Procedure Date: 08/15/22 Time: 08:30 Anesthesiologist:: Eyad Biggs CRNA Complications:: None Pre-procedure Diagnosis:: Degenerative disc disease lumbar spine multilevels. Lumbar radiculopathy. Lumbar postlaminectomy syndrome. Lumbar spondylosis. Lumbar spinal stenosis. Post-procedure Diagnosis:: Same. Indications for Procedure:: Procedure: Lumbar epidural steroid injection under fluoroscopy Informed consent was obtained and the risks and benefits of the procedure were explained to the patient. The patient was taken to the procedure room and noninvasive monitors placed, including noninvasive blood pressure cuff and pulse oximeter. The back was viewed using C-arm Fluoroscopy and prepped using Chloraprep as a cleansing solution and the L3-4 interspace was palpated. Skin and subcutaneous tissues were anesthetized using lidocaine 1.5% and a 25-gauge needle. After this, an 18-gauge Touhy epidural needle was placed into the L3-4 interspace and advanced using fluoroscopic guidance and loss of resistance to air until the epidural space was encountered. After confirmation of needle placement in the epidural space, with dye, a solution containing normal saline, 3 mL and Depo-Medrol 80 mg were incrementally injected into the lumbar epidural space. The patient tolerated the procedure well with no complications. The patient was observed in the Pain Clinic and then discharged home neurologically intact. Procedure Details:: Patient was discharged without incident. Plan and Disposition:: Patient is a very pleasant 71-year-old male that comes our clinic today for lumbar epidural steroid injection and epidurogram for diagnostic purposes. Patient has had lumbar epidural steroid injections in the past. Patient has varying degrees of relief with the injection. He complains of low back pain as well as bilateral hip and leg radicular symptoms. Patient also being managed with bupivacaine intrathecal pain pump. Spinal cord stimulator.
== END 2022-08-15 08:50 | disposition home or self-care (01) ==
PROVIDERS: PCP Family Medicine; Visit Provider Nurse Anesthetist, Certified Registered
DX: M51.16 Intervertebral disc disorders with radiculopathy, lumbar region (principal); M96.1 Postlaminectomy syndrome, not elsewhere classified; M48.061 Spinal stenosis, lumbar region without neurogenic claudication; M47.896 Other spondylosis, lumbar region
CPT/HCPCS: 62323; J1040; Q9966

== ENCOUNTER → 2022-08-28 09:05 | Outpatient (POV) | payer MEDICARE, MEDICAID, SELFPAY ==
--- NOTE | 2022-08-28 09:36 | EXP.PAIN.PRO ---
Procedure Date: 08/28/22 Time: 09:36 Anesthesiologist:: Ana Ko APRN Complications:: None Pre-procedure Diagnosis:: Degenerative disc disease of lumbar spine with lumbar radiculopathy symptoms, osteoarthritis right knee, lumbar postlaminectomy syndrome, recent spinal cord stimulator generator replacement Post-procedure Diagnosis:: Same Indications for Procedure:: Patient is a pleasant 71-year-old male who presents today for follow-up of lumbar epidural steroid injection with epidurogram L3-L4 on 08/15/2022. We are currently treating the patient for degenerative disc disease of lumbar spine with lumbar radiculopathy symptoms, osteoarthritis right knee, postlaminectomy syndrome lumbar spine, recent spinal cord stimulator generator replacement. Today he rates his pain a 4 out of 10. Patient does state that he has had at least 20% improvement following this injection and feels like it is still continuing to provide additional relief. Patient does state that he continues to have some leg symptoms of numbness and tingling however every time we have decreased his intrathecal pump medication he seems to do better. Patient is currently managed with bupivacaine 15 mg/mL with a daily dose of 5.84 mg/day. Patient denies any side effects from this medication. Patient does also have a spinal cord stimulator in place that is doing well and he states his current programming does not need adjustment. Patient is scheduled for his at home refill next through [facility]. Patient is also managed with pregabalin 225 mg twice a day from Dr. Ravi's office. His Leeroy is [phone]. Its been reviewed and appropriate. Physical Exam: General: Alert and oriented x3, no acute distress, pleasant and cooperative Lungs: Respirations even and unlabored, symmetrical chest expansion Eyes: PERRL Musculoskeletal: Flexion and extension of lumbar [spine] somewhat guarded secondary to pain, [antalgic gait noted] Neurological: Speech clear, no gross sensory deficit Procedure Details:: Informed consent was obtained and the risk and benefits of the procedure were explained to the patient. Patient was taken to the procedure room where noninvasive monitoring was placed including noninvasive blood pressure cuff and pulse oximeter. Patient's pump was interrogated and was reprogrammed to bupivacaine 5.256 mg/day. The patient tolerated the procedure well with no complications. Plan and Disposition:: I have discussed with the patient that the lumbar epidural with epidurogram did show that he was not a candidate for the minimally invasive lumbar decompression due to his previous laminectomies. Patient is an at home [facility] and will contact our office if he needs any additional follow-up appointments. Patient has been instructed to contact the clinic with any concerns before the next appointment. Dr. Hyman has reviewed this note and agrees with this plan of care. This note was dictated using voice recognition software and make contain errors or omissions. -- It Is medically necessary for this patient to continue to have their intrathecal pump refilled at regular intervals. This patient had an intrathecal pain pump implanted after meeting criteria of chronic intractable pain for greater than 3 months and failing conservative treatments. Patient has committed and been compliant to the treatment plan and all planned follow up care. Since implantation of the intrathecal pain pump, the patient has had decreased pain and been more functional. Oral medications have been reduced including intake of oral opioids. Patient continues to do well with intrathecal therapy with decrease in pain symptoms and increase in functional status. Stopping intrathecal medications can lead to life threatening withdrawal, seizures, cardiac arrest, severe pain, and possible . Pumps that are not refilled at regular intervals can be damages and cause and need for replacement. We continually titrate dose a
[2022-08-28 10:52] VITALS: BP 110/72; PULSE 74; RESP 18; O2SAT 96; BMI 32.0
== END | disposition home or self-care (01) ==
PROVIDERS: PCP Family Medicine; Visit Provider Nurse Practitioner Family
DX: M51.16 Intervertebral disc disorders with radiculopathy, lumbar region (principal); M17.11 Unilateral primary osteoarthritis, right knee; M96.1 Postlaminectomy syndrome, not elsewhere classified; Z96.82 Presence of neurostimulator
CPT/HCPCS: 62368; 99213; G0463

== ENCOUNTER → 2022-09-26 10:27 | Outpatient (CLI) | payer MEDICARE, MEDICAID, SELFPAY ==
--- NOTE | 2022-09-26 10:37 | XR_ITS ---
FINAL REPORT CLINICAL HISTORY: BOB ARM & LEG WEAKNESS FINDINGS: CERVICAL SPINE Six views of the cervical spine were obtained. There is moderate diffuse degenerative disc disease. There is mild multilevel bony neuroforaminal narrowing. There is no fracture or malalignment. IMPRESSION: Degenerative changes without compression fracture Reviewed, Interpreted and Dictated by Wellington Cheema MD Transcribed by Tom Dickey Authenticated and [facility]
== END ==
PROVIDERS: PCP Family Medicine; Visit Provider Family Medicine
DX: R29.898 Other symptoms and signs involving the musculoskeletal system (principal)
CPT/HCPCS: 72050

== ENCOUNTER → 2022-10-13 07:12 | Outpatient (CLI) | payer MEDICARE, MEDICAID, SELFPAY ==
--- NOTE | 2022-10-13 07:15 | CT_ITS ---
FINAL REPORT CLINICAL HISTORY: DISORDER OF NECK,DDD,BOB ARM WEAKNESS COMPARISON: None FINDINGS: Axial CT images of the cervical spine were obtained without contrast. Sagittal and coronal reformatted images were also obtained. This study was performed with techniques to keep radiation doses as low as reasonably achievable (ALARA). Individualized dose reduction techniques using automated exposure control or adjustment of mA and/or kV according to the patient's size were employed. There is no evidence of fracture or dislocation. The bony alignment is normal. Moderate to severe diffuse degenerative changes present with multilevel disc osteophyte complexes. There is no evidence of canal stenosis. No paraspinous soft tissue abnormality is seen. Limited images of the upper thorax are unremarkable. C2-3: Small disc protrusion centrally with mild indentation of the thecal sac. C3-4: Annular bulge is present with uncovertebral osteophytes, severe right and moderate left neural foraminal narrowing. C4-5: Disc osteophyte complex present with moderate right and mild left neural foraminal narrowing. There is a chronic appearing calcification adjacent to the left facet of uncertain origin. C5-6: Disc osteophyte complex is present with moderate bilateral neural foraminal narrowing. C6-7: Disc osteophyte complex present with moderate right and mild left neural foraminal narrowing. C7-T1 disc osteophyte complex present with mild right and moderate left neural foraminal narrowing. IMPRESSION: Multilevel cervical degenerative change as described. Reviewed, Interpreted and Dictated by Mason Cintron III, MD Transcribed by Melony Marmolejo Authenticated and [facility]
== END ==
PROVIDERS: PCP Family Medicine; Visit Provider Family Medicine
DX: M50.30 Other cervical disc degeneration, unspecified cervical region (principal); M53.82 Other specified dorsopathies, cervical region; R29.898 Other symptoms and signs involving the musculoskeletal system
CPT/HCPCS: 72125

== ENCOUNTER → 2022-10-24 14:03 | Outpatient (POV) | payer MEDICARE, MEDICAID, SELFPAY | PROVIDERS: Visit Provider Specialist/Technologist | DX: Z00.00 Encounter for general adult medical examination without abnormal findings (principal) ==

== ENCOUNTER → 2022-10-25 09:31 | Outpatient (POV) | payer MEDICARE, MEDICAID, SELFPAY ==
--- NOTE | 2022-10-25 10:33 | EXP.PAIN.SOA ---
[facility] Pain Management SOAP Note Subjective:: Patient is a pleasant 72-year-old male who presents today for follow-up of CT imaging of his cervical spine. We are currently treating the patient for degenerative disc disease of lumbar spine with lumbar radiculopathy symptoms, lumbar postlaminectomy syndrome, osteoarthritis right knee, right knee pain, recent spinal cord stimulator generator replacement. Today he rates his pain a 3 out of 10. Patient denies any new change to location or type of pain he experiences. He does state that he continues to have pain in his neck and upper extremities with numbness and tingling as well as his right knee and low back. Patient has had previous injective therapy for his right knee that did provide significant relief of upwards of 75% lasting a month and a half. Patient does state that his knee pain is an aching, throbbing sensation that is worse with increased activity and does interfere with his ability perform activities of daily living. Patient is interested in repeating injective therapy at today's visit for this joint. Patient denies any previous knee replacement. Patient does have a [employer] spinal cord stimulator in place for his lumbar radiculopathy symptoms. He does state that this does provide significant improvements. He does also have a flow Joey intrathecal pump with bupivacaine 15 mg/mL and a daily dose of 4.7304 mg/day. He denies any side effects from this medication. Patient does state that since our last decreased he has continued to have improvement of the numbness into his lower extremities and that now its only at the bottom of his feet. Patient is currently managed with pregabalin 225 mg twice a day from Dr. Ravi's office. Patient has previously been to Dr. Bello who performed a lumbar decompression in the past however he does state at his last visit he felt like he has overall treatment was not the best. Patient does state that the nurse who roomed him was and he was not sure if she was just having a bad day overall. His Leeroy is [phone]. Its been reviewed and appropriate. Objective:: Physical Exam: General: Alert and oriented x3, no acute distress, pleasant and cooperative Lungs: Respirations even and unlabored, symmetrical chest expansion Eyes: PERRL Musculoskeletal: Flexion and extension of right knee somewhat guarded secondary to pain, [antalgic gait noted] Neurological: Speech clear, no gross sensory deficit [address] [facility] [place] [address] [place] Scan Report Signed Patient: Haile Clancy MR#: [id number] : 1950 Acct:[id number] Age/Sex: 72 / M ADM Date: 10/13/22 Loc: RAD Attending Dr: Leo Ravi MD Ordering Physician: Leo Ravi MD Date of Service: 10/13/22 Procedure(s): CT cervical spine wo con Accession Number(s): [id number] cc: Mason Cintron MD; Leo Ravi MD~ FINAL REPORT CLINICAL HISTORY: DISORDER OF NECK,DDD,BOB ARM WEAKNESS COMPARISON: None FINDINGS: Axial CT images of the cervical spine were obtained without contrast. Sagittal and coronal reformatted images were also obtained. This study was performed with techniques to keep radiation doses as low as reasonably achievable (ALARA). Individualized dose reduction techniques using automated exposure control or adjustment of mA and/or kV according to the patient's size were employed. There is no evidence of fracture or dislocation. The bony alignment is normal. Moderate to severe diffuse degenerative changes present with multilevel disc osteophyte complexes. There is no evidence of canal stenosis. No paraspinous soft tissue abnormality is seen. Limited images of the upper thorax are unremarkable. C2-3: Small disc protrusion centrally with mild indentation of the thecal sac. C3-4: Annular bulge is present with uncovertebral osteophytes, severe right and moderate left neural foraminal narrowing. C4-5: Disc osteophyte
[2022-10-25 10:52] VITALS: BP 111/65; PULSE 70; RESP 18; O2SAT 96; BMI 30.8
== END ==
PROVIDERS: PCP Family Medicine; Visit Provider Nurse Practitioner Family
DX: M50.10 Cervical disc disorder with radiculopathy, unspecified cervical region (principal); M51.16 Intervertebral disc disorders with radiculopathy, lumbar region; M17.11 Unilateral primary osteoarthritis, right knee; M25.561 Pain in right knee; M96.1 Postlaminectomy syndrome, not elsewhere classified; Z96.82 Presence of neurostimulator
CPT/HCPCS: 99212; G0463

== ENCOUNTER → 2022-12-01 14:18 | Outpatient (POV) | payer MEDICARE, MEDICAID, SELFPAY ==
--- NOTE | 2022-12-01 15:04 | P.PCN_ITS ---
Procedure Date: 12/01/22 Time: 14:30 Anesthesiologist:: Eyad Biggs CRNA Complications:: None Pre-procedure Diagnosis:: Degenerative disc disease lumbar spine multilevels. Lumbar radiculopathy. Degenerative disc disease cervical spine. Cervical radiculopathy. Post-procedure Diagnosis:: Same. Indications for Procedure:: Patient is a very pleasant 72-year-old male that comes our clinic today for intrathecal pain pump analysis and reprogram. Patient currently being managed with intrathecal bupivacaine 15 mg/mL. Patient receives 2.1060 mg at 6 AM. 2.3619 mg at 7 PM. Patient would like to decrease the p.m. dose to match the a.m. dose. Patient states he is doing very well with his current intrathecal management. He rates his pain 2/10. Procedure Details:: Details of the procedure explained to the patient. The patient's pump was interrogated. The p.m. dose was decreased to 2.1060 mg. Patient tolerated procedure without difficulty. No complications. Plan and Disposition:: Patient was discharged without incident. He will continue with home refill program. Patient's [facility] #[id number] has been reviewed and appropriate.
[2022-12-01 15:07] VITALS: BP 104/64; PULSE 65; RESP 18; O2SAT 94; BMI 29.6
== END | disposition home or self-care (01) ==
PROVIDERS: PCP Family Medicine; Visit Provider Nurse Anesthetist, Certified Registered
DX: M51.16 Intervertebral disc disorders with radiculopathy, lumbar region (principal); M50.10 Cervical disc disorder with radiculopathy, unspecified cervical region; Z97.8 Presence of other specified devices
CPT/HCPCS: 62368; 99213; G0463

== ENCOUNTER → 2022-12-29 13:21 | Outpatient (POV) | payer MEDICARE, MEDICAID, SELFPAY ==
--- NOTE | 2022-12-29 14:00 | EXP.PAIN.SOA ---
[facility] Pain Management SOAP Note Subjective:: This patient is a very pleasant 72-year-old male that comes our clinic today for questions regarding his intrathecal pain pump. Patient is currently being managed with bupivacaine 15 mg/mL at 3.7908 mg/day. Patient's main complaint is lower legs and feet feeling as though they are swollen. However, upon exam there is no edema in the lower legs and/or feet. Patient was recently turned down by 10% by home refill. Patient states this sensation continues. Patient does not complain of any pain. We have been managing him for several years with intrathecal pain pump secondary to degenerative disc disease lumbar spine multilevels. Lumbar radiculopathy. Degenerative disc cervical spine. Cervical radiculopathy. Historically he he has done very well in regards to pain management using intrathecal pain pump. Patient requesting additional decrease today by 10%. I explained to the patient in detail the sensation he is describing is the result of the intrathecal pain pump working successfully. Patient requesting to continue with decrease of intrathecal pain pump rate until pain returns to some degree. Objective:: Patient is awake alert [place] x3. In no acute distress. Flexion-extension lumbar spine somewhat guarded secondary to pain. Deep tendon reflexes upper lower extremities normal. There is no gross sensory deficit. Gait is normal. Assessment:: Degenerative disc lumbar spine multilevels. Lumbar radiculopathy. Degenerative disc cervical spine multiple levels. Cervical radiculopathy. Plan:: We will decrease patient's intrathecal pain pump rate. His new rate is 3.4 mg/day. Additional request for decreased will be sent to home refill program. Also, I gave the patient the option to come to the office if indeed he needed anything. [facility] Disclaimer: The information contained in this section may have been updated after the patient was seen, as this information can be updated by other users. Medical History (Updated 12/28/22 @ 09:34 by Romy Estrella MD) Allergic rhinitis Allergies Arthritis Asthma COPD (chronic obstructive pulmonary disease) Cough variant asthma Dyspnea on exertion Family history of asthma Gallbladder disease Gout Hearing loss History of back pain History of gastroesophageal reflux (GERD) Hypertension Insomnia Sleep apnea Stopped smoking with greater than 15 pack year history Systolic ejection murmur Wheezing without diagnosis of asthma Surgical History History of back surgery History of carpal tunnel surgery History of cholecystectomy History of hip replacement, total History of knee surgery Family History Other Cancer Coronary artery disease Hypertension Stroke Social History Smoking Status: Former smoker tobacco type: cigarettes packs per day: 0 years smoked: 6 how long ago did patient quit smoking: QUIT 40 YEARS AGO second hand exposure: No alcohol intake: current substance use type: denies use current occupational status: retired Travel in the last 8 weeks: None household members: spouse housing: house current occupational exposures/hazards: No caffeine: Yes
[2022-12-29 14:08] VITALS: BP 105/69; PULSE 71; RESP 18; O2SAT 95; BMI 30.8
== END ==
PROVIDERS: PCP Family Medicine; Visit Provider Nurse Anesthetist, Certified Registered
DX: M51.16 Intervertebral disc disorders with radiculopathy, lumbar region (principal); M50.10 Cervical disc disorder with radiculopathy, unspecified cervical region; Z97.8 Presence of other specified devices
CPT/HCPCS: 62368; 99213; G0463

== ENCOUNTER → 2023-02-14 13:53 | Outpatient (CLI) | payer MEDICARE, MEDICAID, SELFPAY | PROVIDERS: PCP Family Medicine; Visit Provider Specialist | DX: G47.00 Insomnia, unspecified (principal); R53.83 Other fatigue; R06.83 Snoring; G47.30 Sleep apnea, unspecified | CPT/HCPCS: G0399 ==

== ENCOUNTER → 2023-02-21 09:55 | Outpatient (POV) | payer MEDICARE, MEDICAID, SELFPAY ==
--- NOTE | 2023-02-21 11:14 | EXP.PAIN.PRO ---
Procedure Date: 02/21/23 Time: 11:14 Anesthesiologist:: Ana Ko APRN Complications:: None Pre-procedure Diagnosis:: Degenerative disc disease multilevel cervical and lumbar spine with cervical and lumbar radiculopathy symptoms Post-procedure Diagnosis:: Same Indications for Procedure:: Patient is a pleasant 72-year-old male who presents today for intrathecal adjustment and reprogram. Patient denies any new trauma or injury. He rates his pain today a 5 out of 10. Patient has been slowly decreasing his pump medication. He states from the last decrease he did have increasing numbness from his feet to his ankles. Patient denies any other side effects. He is currently managed with bupivacaine 15 mg/mL with a daily rate of 2.4786. Patient would like to continue to decrease his current medication. His Leeroy has been reviewed and is appropriate. Physical Exam: General: Alert and oriented x3, no acute distress, pleasant and cooperative Lungs: Respirations even and unlabored, symmetrical chest expansion Eyes: PERRL Musculoskeletal: Flexion and extension of lumbar [spine] somewhat guarded secondary to pain, [antalgic gait noted] Neurological: Speech clear, no gross sensory deficit Procedure Details:: Informed consent was obtained and the risk and benefits of the procedure were explained to the patient. Patient was taken to the procedure room where noninvasive monitoring was placed including noninvasive blood pressure cuff and pulse oximeter. Patient's pump was interrogated and was reprogrammed to bupivacaine 2.23 mg/day. The patient tolerated the procedure well with no complications. Plan and Disposition:: Patient tolerated his intrathecal decrease with no complications and was discharged neurologically intact. we will see the patient back in the clinic at the next intrathecal refill. Patient has been instructed to contact the clinic with any concerns before the next appointment. Dr. Hyman has reviewed this note and agrees with this plan of care. This note was dictated using voice recognition software and make contain errors or omissions. -- It Is medically necessary for this patient to continue to have their intrathecal pump refilled at regular intervals. This patient had an intrathecal pain pump implanted after meeting criteria of chronic intractable pain for greater than 3 months and failing conservative treatments. Patient has committed and been compliant to the treatment plan and all planned follow up care. Since implantation of the intrathecal pain pump, the patient has had decreased pain and been more functional. Oral medications have been reduced including intake of oral opioids. Patient continues to do well with intrathecal therapy with decrease in pain symptoms and increase in functional status. Stopping intrathecal medications can lead to life threatening withdrawal, seizures, cardiac arrest, severe pain, and possible . Pumps that are not refilled at regular intervals can be damages and cause and need for replacement. We continually titrate dose and concentration to optimize pain relief and function. We are limited in concentration for certain drugs to safely deliver medications through the pump and stay within the recommendations from the Polyanalgesic Consensus Committee Guidelines. Depending on dose and concentration these pumps may need to be refilled sooner than 3 months as we titrate.
[2023-02-21 12:25] VITALS: BP 125/78; PULSE 70; RESP 18; O2SAT 97; BMI 30.8
== END | disposition home or self-care (01) ==
PROVIDERS: PCP Family Medicine; Visit Provider Nurse Practitioner Family
DX: M50.10 Cervical disc disorder with radiculopathy, unspecified cervical region (principal); M51.16 Intervertebral disc disorders with radiculopathy, lumbar region; Z97.8 Presence of other specified devices; Z45.1 Encounter for adjustment and management of infusion pump
CPT/HCPCS: 62368; 99213; G0463

== ENCOUNTER 2023-05-28 13:47 | Outpatient (POV) | payer MEDICARE, MEDICAID, SELFPAY ==
--- NOTE | 2023-05-28 14:11 | EXP.PAIN.SOA ---
[facility] Pain Management SOAP Note Subjective:: Patient is a pleasant 72-year-old male who presents today for follow-up. Today he rates his pain a 6 out of 10. Patient denies any new trauma or injury however he does state that he has been experiencing worsening pain in his left shoulder. Patient states that he has just been working on his tractor and is not sure if he just randomly pulled something. He describes this as a overall hurting sensation that hurts really bad with increased range of motion or activity. He does state the pain is interfering with his ability to perform activities of daily living such as cooking and cleaning. Patient is interested in any help we may be able to provide. Patient is not AIS home refill client and does currently have an his pump bupivacaine 10 mg/mL with a daily dose of 2.007 mg/day. He denies any side effects from this medication. He does state that [facility] home health nurse just came out today and decreased his overall concentration. He states he is still having some numbness into his feet and that they were hoping this might help improve the symptoms. He is prescribed pregabalin from his primary care doctor. His Leeroy has been reviewed and is appropriate. Review of Systems: General: No recent weight changes, no fever, no sleep disturbances Respiratory: No cough, no shortness of air, no recurring pulmonary infections Cardiovascular/peripheral vascular: No chest pain, no palpitations, no edema, no shortness of breath Gastrointestinal: No new onset incontinence, normal bowel movements reported Genitourinary: No new onset incontinence Musculoskeletal: Left shoulder pain Psychiatric: [Normal mood/affect] Neurological: [Denies weakness in extremities], [denies balance issues] Objective:: Physical Exam: General: Alert and oriented x3, no acute distress, pleasant and cooperative Lungs: Respirations even and unlabored, symmetrical chest expansion Eyes: PERRL Musculoskeletal: Flexion and extension of left shoulder somewhat guarded secondary to pain, [antalgic gait noted] Neurological: Speech clear, no gross sensory deficit Assessment:: 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 I have discussed with patient that he may benefit from left shoulder intra-articular injection. Risk and benefits were discussed with the patient and he would like to proceed forward with this plan of care. I will also send in baclofen 10 mg 3 times daily as needed and provide a 2-week supply of this medication. I will also prescribe Salonpas patches. Patient will be scheduled for a left shoulder intra-articular injection. Patient has been instructed to contact the clinic with any concerns before the next appointment. Dr. Hyman has reviewed this note and agrees with this plan of care. This note was dictated using voice recognition software and make contain errors or omissions. -- It Is medically necessary for this patient to continue to have their intrathecal pump refilled at regular intervals. This patient had an intrathecal pain pump implanted after meeting criteria of chronic intractable pain for greater than 3 months and failing conservative treatments. Patient has committed and been compliant to the treatment plan and all planned follow up care. Since implantation of the intrathecal pain pump, the patient has had decreased pain and been more functional. Oral medications have been reduced including intake of oral opioids. Patient continues to do well with intrathecal therapy with decrease in pain symptoms and increase in functional status. Stopping intrathecal medications can lead to life threatening withdrawal, seizures, cardiac arrest, severe pain, and possible . Pumps that are not refilled at regular intervals can be damages and cause and need for replacement. We continually titrate dose and concentration to optimize pain relief and function. We are limited in concentration for certain drugs to safely deliver medications through the pump and stay within the recommendations from the Polyanalgesic Consensus Committee Guidelines. Depending on dose and concentration these pumps may need to be refilled sooner than 3 months as we titrate. [facility] Disclaimer: The information contained in this section may have been updated after the patient was seen, as this information can be updated by other users. Medical History Allergic rhinitis Allergies Arthritis Asthma COPD (chronic obstructive pulmonary disease) Cough variant asthma Dyspnea on exertion Family history of asthma Gallbladder disease Gout Hearing loss History of back pain History of gastroesophageal reflux (GERD) Hypertension Insomnia Currently on trazodone 100 mg p.o. nightly and doing well Sleep apnea Stopped smoking with greater than 15 pack year history Systolic ejection murmur Wheezing without diagnosis of asthma Surgical History History of back surgery History of carpal tunnel surgery History of cholecystectomy History of hip replacement, total LEFT History of knee surgery RIGHT Family History Other Cancer Coronary artery disease Hypertension Stroke Social History Smoking Status: Former smoker tobacco type: cigarettes packs per day: 0 years smoked: 6 how long ago did patient quit smoking: QUIT 40 YEARS AGO second hand exposure: No alcohol intake: current substance use type: denies use current occupational status: retired Travel in the last 8 weeks: None household members: spouse housing: house current occupational exposures/hazards: No caffeine: Yes
[2023-05-28 14:59] VITALS: BP 126/73; PULSE 84; RESP 18; O2SAT 94; BMI 30.8
== END 2023-05-28 23:59 | disposition home or self-care (01) ==
PROVIDERS: PCP Internal Medicine; Visit Provider Nurse Practitioner Family
DX: M50.10 Cervical disc disorder with radiculopathy, unspecified cervical region (principal); M51.16 Intervertebral disc disorders with radiculopathy, lumbar region; M25.512 Pain in left shoulder; G89.4 Chronic pain syndrome
CPT/HCPCS: 99212; G0463

== ENCOUNTER 2023-06-08 11:39 | Day surgery (SDC) | payer MEDICARE, MEDICAID, SELFPAY ==
[2023-06-08 11:54] VITALS: BP 142/82; PULSE 70; RESP 18; TEMP 36.3; O2SAT 94; BMI 30.8
[2023-06-08] MEDS: methylPREDNISolone ACETATE 80MG/ML VIAL 80 MG (12:12)
[2023-06-08 12:13] VITALS: BP 124/82; PULSE 66; RESP 18; O2SAT 98
[2023-06-08] MEDS: LIDOCAINE 1% 5ML PF VIAL 5 ML (12:13)
[2023-06-08] MEDS: BUPIVACAINE 0.25% 10ML INJ 25 MG IJ (12:13)
[2023-06-08 12:14] VITALS: BP 124/82; PULSE 66; RESP 18; O2SAT 98
[2023-06-08 12:15] VITALS: BP 143/81; PULSE 63; RESP 18; O2SAT 94
--- NOTE | 2023-06-08 12:28 | P.PCN_ITS ---
Procedure Date: 06/08/23 Time: 12:00 Anesthesiologist:: Eyad Biggs CRNA Complications:: None Pre-procedure Diagnosis:: DJD left shoulder. Chronic left shoulder pain. Post-procedure Diagnosis:: Same. Indications for Procedure:: Patient is a very pleasant 72-year-old male comes our clinic today for left intra-articular shoulder injection. Patient reporting left shoulder pain that is constant, dull, aching. Patient demonstrates 5/5 strength in the left arm. However, decreased range of motion secondary to pain. He rates his pain 7/10. Procedure Details:: Procedure Details: Left shoulder intra-articular injection Informed consent was obtained risk and benefits of the procedure were explained to the patient. Patient was taken to the procedure room. The left shoulder was prepped using ChloraPrep. A 25-gauge needle was used first anteriorly, laterally, and then posteriorly to inject 10 mL bupivacaine 0.25% and Depo- Medrol 40 mg. Patient tolerated procedure well with no complications. Plan and Disposition:: Patient was discharged without incident.
== END 2023-06-08 12:15 | disposition home or self-care (01) ==
LOC: SC.PAINP 11:40
PROVIDERS: PCP Internal Medicine; Visit Provider Nurse Anesthetist, Certified Registered
DX: M19.012 Primary osteoarthritis, left shoulder (principal); M25.512 Pain in left shoulder; G89.29 Other chronic pain
CPT/HCPCS: 20610; J1010

== ENCOUNTER 2023-06-25 13:15 | Outpatient (POV) | payer MEDICARE, MEDICAID, SELFPAY ==
[2023-06-25 13:41] VITALS: BP 125/77; PULSE 79; RESP 18; TEMP 36.7; O2SAT 99; BMI 30.8
--- NOTE | 2023-06-25 14:08 | EXP.PAIN.PRO ---
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 Today he rates his pain a 3 out of 10 and he is left shoulder however he does state that he is experiencing worsening pain in his right shoulder. Patient describes this as a chronic aching sensation with limited range of motion and popping with movement. He does state the pain interferes with his ability to perform activities of daily living. patient denies any prior shoulder surgery. Patient does state that he did get significant relief in his left shoulder with at least 75% improvement and feels like it still helping. 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 He denies any side effects from this medication however he states he feels like it could still be decreased. His Leeroy has been reviewed and is appropriate. He is prescribed pregabalin from a primary care doctor. Physical Exam: General: Alert and oriented x3, no acute distress, pleasant and cooperative Lungs: Respirations even and unlabored, symmetrical chest expansion Eyes: PERRL Musculoskeletal: Flexion and extension of right shoulder somewhat guarded secondary to pain, [antalgic gait noted] Neurological: Speech clear, no gross sensory deficit Procedure Details:: Informed consent was obtained and the risk and benefits of the procedure were explained to the patient. Patient was taken to the procedure room where noninvasive monitoring was placed including noninvasive blood pressure cuff and pulse oximeter. Patient's pump was interrogated and was reprogrammed to bupivacaine 1.9 mg/day. The patient tolerated the procedure well with no complications. Plan and Disposition:: Patient tolerated his intrathecal decrease with no complications and was discharged neurologically intact. Patient is experiencing worsening pain in his right shoulder with limited range of motion. I discussed with patient that he may benefit from a intra-articular shoulder injection. Risk and benefits were discussed with patient and he would like to proceed forward with this plan of care. We will schedule the patient for a right shoulder intra-articular injection. Patient has been instructed to contact the clinic with any concerns before the next appointment. Dr. Hyman has reviewed this note and agrees with this plan of care. This note was dictated using voice recognition software and make contain errors or omissions.
== END 2023-06-25 23:59 | disposition home or self-care (01) ==
PROVIDERS: PCP Internal Medicine; Visit Provider Nurse Practitioner Family
DX: M50.10 Cervical disc disorder with radiculopathy, unspecified cervical region (principal); M51.16 Intervertebral disc disorders with radiculopathy, lumbar region; G89.4 Chronic pain syndrome; M25.511 Pain in right shoulder; M25.512 Pain in left shoulder; M19.011 Primary osteoarthritis, right shoulder; M19.012 Primary osteoarthritis, left shoulder; Z45.1 Encounter for adjustment and management of infusion pump
CPT/HCPCS: 62368; 99212; G0463

== ENCOUNTER 2023-07-02 12:42 | Outpatient (CLI) | payer MEDICARE, MEDICAID, SELFPAY ==
[2023-07-02 13:15] LABS: Alanine Aminotransferase 36 U/L (12-78); Albumin Level 4.2 g/dl (3.5-5.0); Albumin/Globulin Ratio 1.8 (1.1-1.8); Alkaline Phosphatase 81 U/L (38-126); Anion Gap 10.8 mEq/L (5-15); Aspartate Amino Transferase 40 U/L (17-59); Bilirubin,Total 0.5 mg/dl (0.2-1.3); Blood Urea Nitrogen 28 mg/dl (9-20); Calcium 9.6 mg/dl (8.4-10.2); Carbon Dioxide 24 mmol/L (22.0-30.0); Chloride 111 mmol/L (98-107); Estimated Glomerular Filt Rate 54 ml/min (>60); GFR (African American) 65 ML/MIN (>60); Globulin 2.3 g/dL (1.3-3.2); Glucose 94 mg/dl (74-100); Magnesium 1.9 mg/dl (1.6-2.3); Potassium 4.8 mmoL/L (3.5-5.1); Sodium 141 mmol/L (136-145); Total Protein,Serum 6.5 g/dl (6.3-8.2)
[2023-07-02 13:22] LABS: C-Reactive Protein 4.9 mg/L (0-4)
[2023-07-02 13:46] LABS: Thyroid Stimulating Hormone 2.21 uIU/mL (0.465-4.68)
[2023-07-02 14:49] LABS: Ferritin 122 ng/ml (17.9-464)
== END 2023-07-02 23:59 | disposition home or self-care (01) ==
LOC: LAB.DROPOF 12:43
PROVIDERS: PCP Nurse Practitioner Family; Visit Provider Nurse Practitioner Family
DX: R25.2 Cramp and spasm (principal); R20.0 Anesthesia of skin; D64.9 Anemia, unspecified
CPT/HCPCS: 80053; 82728; 83735; 84443; 86140

== ENCOUNTER 2023-07-17 11:24 | Day surgery (SDC) | payer MEDICARE, MEDICAID, SELFPAY ==
[2023-07-17 11:38] VITALS: BP 108/65; PULSE 58; RESP 18; TEMP 36.7; O2SAT 94; BMI 30.8
[2023-07-17] MEDS: BUPIVACAINE 0.25% 10ML INJ 25 MG IJ (11:44)
[2023-07-17] MEDS: LIDOCAINE 1% 5ML PF VIAL 5 ML (11:44)
[2023-07-17] MEDS: methylPREDNISolone ACETATE 80MG/ML VIAL 80 MG (11:44)
[2023-07-17 11:45] VITALS: BP 114/71; BP 117/69; PULSE 72; PULSE 75; RESP 18; O2SAT 94; O2SAT 95
[2023-07-17 11:46] VITALS: BP 117/69; PULSE 73; RESP 18; O2SAT 95
--- NOTE | 2023-07-17 12:22 | P.PCN_ITS ---
Procedure Date: 07/17/23 Time: 11:50 Anesthesiologist:: Eyad Biggs CRNA Complications:: None Pre-procedure Diagnosis:: DJD right shoulder. Chronic right shoulder pain. Post-procedure Diagnosis:: Same. Indications for Procedure:: Patient is a pleasant 72-year-old male comes our clinic today for right intra- articular shoulder injection. Patient is status post same injection on the left. He is reporting significant improvement in terms of his range of motion of the left shoulder. He reports his right shoulder is painful with range of motion. He rates his pain 7/10. Patient has 5/5 strength in the right arm. Limited range of motion secondary to pain. Procedure Details:: Procedure Details: Right shoulder intra-articular injection Informed consent was obtained risk and benefits of the procedure were explained to the patient. Patient was taken to the procedure room. The right shoulder was prepped using ChloraPrep. A 25-gauge needle was used first anteriorly, laterally, and then posteriorly to inject 10 mL bupivacaine 0.25% and Depo- Medrol 40 mg. Patient tolerated procedure well with no complications. Plan and Disposition:: Patient was discharged without incident.
== END 2023-07-17 11:45 | disposition home or self-care (01) ==
PROVIDERS: PCP Internal Medicine; Visit Provider Nurse Anesthetist, Certified Registered
DX: M19.011 Primary osteoarthritis, right shoulder (principal); M25.511 Pain in right shoulder; G89.29 Other chronic pain
CPT/HCPCS: 20610; J1010

== ENCOUNTER 2023-08-03 11:15 | Outpatient (POV) | payer MEDICARE, MEDICAID, SELFPAY ==
--- NOTE | 2023-08-03 12:03 | A.OFFVIS_ITS ---
[facility] Pain Management SOAP Note Subjective:: This patient is a pleasant 72-year-old male comes our clinic today for follow-up visit after receiving a right intra-articular shoulder injection. Patient reports 90% improvement terms of his overall right shoulder pain. Patient has 5/5 strength in the right arm. Good range of motion. Patient also has bupivacaine intrathecal pain pump. 10 mg/mL at 1.71 mg/day. Patient also has lumbar spinal cord stimulator that is functioning. His main complaint today is bilateral feet numbness. He is requesting lumbar MRI to further discern if there is any new pathology in the lumbar spine. He denies pain. I informed the patient this numbness could be coming from the bupivacaine intrathecal pain pump. However, he does not agree. He is concerned there could be new pathology in the lumbar spine. Again, he is requesting lumbar MRI. Objective:: Patient is awake alert Gap x 3. In no acute distress. Flexion-extension lumbar spine somewhat guarded secondary to pain. Deep tendon reflexes upper and lower extremities normal. Motor strength upper lower extremities normal. There is no gross sensory deficit. Gait is normal. Assessment:: Degenerative disc lumbar spine multilevels. Lumbar radiculopathy. Lumbar postlaminectomy syndrome. Lumbar spondylosis. Multilevel lumbar facet arthropathy. Plan:: I will order lumbar MRI to help discern if indeed there is any new pathology in the lumbar spine. Patient CT scan of the lumbar spine 12 months ago. I reviewed the findings with the patient. He wishes to proceed with lumbar MRI. [facility] Disclaimer: The information contained in this section may have been updated after the patie nt was seen, as this information can be updated by other users. Medical History Allergic rhinitis Allergies Arthritis Asthma COPD (chronic obstructive pulmonary disease) Cough variant asthma Dyspnea on exertion Family history of asthma Gallbladder disease Gout Hearing loss History of back pain History of gastroesophageal reflux (GERD) Hypertension Insomnia Currently on trazodone 100 mg p.o. nightly and doing well Sleep apnea Stopped smoking with greater than 15 pack year history Systolic ejection murmur Wheezing without diagnosis of asthma Surgical History History of back surgery History of carpal tunnel surgery History of cholecystectomy History of hip replacement, total LEFT History of knee surgery RIGHT Family History Other Cancer Coronary artery disease Hypertension Stroke Social History Smoking Status: Former smoker tobacco type: cigarettes packs per day: 0 years smoked: 6 how long ago did patient quit smoking: QUIT 40 YEARS AGO second hand exposure: No alcohol intake: current alcohol intake frequency: holidays/special occasions only substance use type: denies use current occupational status: other Travel in the last 8 weeks: None household members: spouse housing: house current occupational exposures/hazards: No caffeine: Yes
[2023-08-03 12:30] VITALS: BP 136/86; PULSE 71; RESP 18; O2SAT 95; BMI 30.8
== END 2023-08-03 23:59 | disposition home or self-care (01) ==
LOC: SC.PAIN 11:15
PROVIDERS: PCP Internal Medicine; Visit Provider Nurse Anesthetist, Certified Registered
DX: M51.16 Intervertebral disc disorders with radiculopathy, lumbar region (principal); M96.1 Postlaminectomy syndrome, not elsewhere classified; M47.26 Other spondylosis with radiculopathy, lumbar region; Z97.8 Presence of other specified devices
CPT/HCPCS: 99212; G0463

== ENCOUNTER 2023-08-07 08:56 | Outpatient (CLI) | payer MEDICARE, MEDICAID, SELFPAY | END 2023-08-07 23:59 | disposition home or self-care (01) | LOC: RAD 08:57 | PROVIDERS: PCP Nurse Practitioner Family; Visit Provider Nurse Practitioner Family | DX: R20.0 Anesthesia of skin (principal) ==

== ENCOUNTER 2023-08-22 09:42 | Outpatient (CLI) | payer MEDICARE, MEDICAID, SELFPAY ==
[2023-08-22] MEDS: ALBUTEROL 0.083% 2.5 MG/3 ML NEB IH (10:22)
--- NOTE | 2023-08-22 10:22 | PC.NURSE ---
Pre and Post Spirometry with 6 Minute Walk Test completed without incident. Albuterol 0.083% given via HHN, per written protocol, Pt tolerated tx well.
== END 2023-08-22 23:59 | disposition home or self-care (01) ==
LOC: RT 09:42
PROVIDERS: PCP Internal Medicine; Visit Provider Internal Medicine Pulmonary Disease
DX: R06.02 Shortness of breath (principal); J44.9 Chronic obstructive pulmonary disease, unspecified; Z87.891 Personal history of nicotine dependence
CPT/HCPCS: 94060; 94618; J7613

== ENCOUNTER 2023-09-18 12:12 | Outpatient (CLI) | payer MEDICARE, MEDICAID, SELFPAY ==
[2023-09-18 12:54] LABS: Erythrocyte Sedimentation Rate 22 mm/hr (0-20)
[2023-09-18 13:39] LABS: Alanine Aminotransferase 26 U/L (12-78); Albumin Level 4.3 g/dl (3.5-5.0); Albumin/Globulin Ratio 1.8 (1.1-1.8); Alkaline Phosphatase 94 U/L (38-126); Anion Gap 11.5 mEq/L (5-15); Aspartate Amino Transferase 29 U/L (17-59); Bilirubin,Total 0.5 mg/dl (0.2-1.3); Blood Urea Nitrogen 28 mg/dl (9-20); Calcium 9.8 mg/dl (8.4-10.2); Carbon Dioxide 26 mmol/L (22.0-30.0); Chloride 107 mmol/L (98-107); Estimated Glomerular Filt Rate 65 ml/min (>60); GFR (African American) 79 ML/MIN (>60); Globulin 2.4 g/dL (1.3-3.2); Glucose 85 mg/dl (74-100); Magnesium 2.1 mg/dl (1.6-2.3); Potassium 4.5 mmoL/L (3.5-5.1); Sodium 140 mmol/L (136-145); Total Protein,Serum 6.7 g/dl (6.3-8.2); Uric Acid 4.2 mg/dl (3.5-8.5)
[2023-09-18 14:10] LABS: Prostate Specific Ag Screen 1.1 ng/ml (0.0-4.0)
[2023-09-18 14:29] LABS: Vitamin B12 783 pg/mL (239-931)
[2023-09-20 13:47] LABS: RA Latex Turbid. <10.0 IU/mL (<14.0)
[2023-09-21 12:53] LABS: Antinuclear Antibodies, IFA Negative (.)
== END 2023-09-18 23:59 | disposition home or self-care (01) ==
LOC: LAB.DROPOF 12:12
PROVIDERS: PCP Nurse Practitioner Family; Visit Provider Nurse Practitioner Family
DX: Z12.5 Encounter for screening for malignant neoplasm of prostate (principal); M25.50 Pain in unspecified joint; R25.2 Cramp and spasm; D64.9 Anemia, unspecified; Z13.820 Encounter for screening for osteoporosis; R53.83 Other fatigue
CPT/HCPCS: 80053; 82607; 83735; 84550; 85651; 86038; 86431; G0103

== ENCOUNTER 2023-10-10 08:46 | Outpatient (CLI) | payer MEDICARE, MEDICAID, SELFPAY ==
--- NOTE | 2023-10-10 08:49 | XR_ITS ---
FINAL REPORT CLINICAL HISTORY: right hip pain FINDINGS: Right hip Three views were obtained. There is no acute fracture or dislocation. There are mild degenerative changes of the right hip. Patient is status post left hip arthroplasty. Stimulator device is seen in the upper pelvis. IMPRESSION: Mild degenerative changes. Reviewed, Interpreted and Dictated by Mason Cintron III, MD Transcribed by Rae Barber Authenticated and [facility]
--- NOTE | 2023-10-10 08:49 | XR_ITS ---
FINAL REPORT TECHNIQUE: Bone mineral density was calculated of the lumbar spine and hip. CLINICAL HISTORY: Screening for osteoporosis COMPARISON: None FINDINGS: Using L1-4, the bone mineral density of the spine is 1.889 g/cm2, corresponding to T-score of 7.3, likely falsely elevated secondary to the patient's kyphoplasty at the L1 level. Using the right forearm, the bone mineral density of the one third is 0.7-1 g/cm2, corresponding to a T-score of -1.8. NOTE: T-score: Standard deviation compared with peak bone mass of young adult mean. *Following the recommendations of the International Society of Bone densitometry, classification of hip BMD is based on the lower of two T-scores; total hip or femoral neck. IMPRESSION: Diminished bone mineral density of the right forearm consistent with low bone density. Normal bone mineral density of the lumbar spine, likely falsely elevated secondary to inclusion of the kyphoplasty at the L1 level in the field. Reviewed, Interpreted and Dictated by Mason Cintron III, MD Transcribed by Melony Marmolejo Authenticated and [facility]
== END 2023-10-10 23:59 | disposition home or self-care (01) ==
LOC: RAD 08:47
PROVIDERS: PCP Nurse Practitioner Family; Visit Provider Nurse Practitioner Family
DX: Z13.820 Encounter for screening for osteoporosis (principal); M25.551 Pain in right hip; M85.831 Other specified disorders of bone density and structure, right forearm
CPT/HCPCS: 73502; 77080

== ENCOUNTER 2023-10-25 15:12 | Outpatient (POV) | payer MEDICARE, MEDICAID, SELFPAY ==
[2023-10-25 15:46] VITALS: BP 122/77; PULSE 71; RESP 18; O2SAT 94; BMI 30.8
--- NOTE | 2023-10-25 16:02 | EXP.PAIN.SOA ---
[facility] Disclaimer: The information contained in this section may have been updated after the patient was seen, as this information can be updated by other users. Medical History Hearing loss Cough variant asthma Asthma Allergic rhinitis Wheezing without diagnosis of asthma Family history of asthma Stopped smoking with greater than 15 pack year history Dyspnea on exertion Systolic ejection murmur Arthritis Gout Sleep apnea COPD (chronic obstructive pulmonary disease) History of back pain History of gastroesophageal reflux (GERD) Gallbladder disease Allergies Hypertension Insomnia Currently on trazodone 100 mg p.o. nightly and doing well Surgical History History of back surgery History of knee surgery RIGHT History of hip replacement, total LEFT History of carpal tunnel surgery History of cholecystectomy Family History Other Cancer Coronary artery disease Hypertension Stroke Social History Smoking Status: Former smoker tobacco type: cigarettes packs per day: 0 years smoked: 6 how long ago did patient quit smoking: QUIT 40 YEARS AGO second hand exposure: No alcohol intake: current alcohol intake frequency: holidays/special occasions only substance use type: denies use current occupational status: other Travel in the last 8 weeks: None household members: spouse housing: house current occupational exposures/hazards: No caffeine: Yes PM Subjective & Objective Subjective Subjective:: Patient is a pleasant 73-year-old male who presents today for worsening right hip pain. Today he rates his pain a 5 out of 10. Patient denies any new trauma or injury. He does state this is a chronic aching, throbbing sensation that does interfere with his ability perform activities of daily living. Patient does state that this has been a ongoing pain and that he did end up having to have a left hip replacement and he is trying to avoid having the right side. Patient does state he is interested in injection therapy. Patient does also ask questions regarding the last lumbar MRI that he was sent for. He states he still has not heard anything additional regarding this procedure. Patient had gone to [facility] for the imaging initially however the radiologist refused to do it due to his stimulator leads. Patient does also have a intrathecal pain pump of bupivacaine 10 mg/mL. He denies any side effects from this medication. Patient is currently in at home refill client. Patient does also state he has been experiencing little bit more hand numbness as well. His Leeroy has been reviewed and is appropriate. Review of Systems: General: No recent weight changes, no fever, no sleep disturbances Respiratory: No cough, no shortness of air, no recurring pulmonary infections Cardiovascular/peripheral vascular: No chest pain, no palpitations, no edema, no shortness of breath Gastrointestinal: No new onset incontinence, normal bowel movements reported Genitourinary: No new onset incontinence Musculoskeletal: Right hip pain, hand numbness Psychiatric: [Normal mood/affect] Neurological: [Denies weakness in extremities], [denies balance issues] Pain at rest (0-10 scale): 5 Objective Objective:: Physical Exam: General: Alert and oriented x3, no acute distress, pleasant and cooperative Lungs: Respirations even and unlabored, symmetrical chest expansion Eyes: PERRL Musculoskeletal: Flexion and extension of right hip somewhat guarded secondary to pain, [antalgic gait noted] Neurological: Speech clear, no gross sensory deficit Has patient had previous pain injection?: No Conservative treatment options previously tried: Home exercise plan Length of treatment: Longer than 6 weeks Meds Home Medications and Allergies Home Medications ?Medication ?Instructions ?Recorded ?Confirmed ?Type vitamin D3 25 mcg (1,000 unit)-vit 1 each PO DAILY Supplement 03/20/17 10/25/23 History K2 90 mcg disintegrating tablet fenofibrate 160 mg tablet 160 mg PO DAILY TRIGLYCERIDES 03/02/21 10/25/23 History finasteride 5 mg tablet 5 mg PO DAILY prostate 03/02/21 10/25/23 History allopurinol 300 mg tablet 300 mg PO DAILY GOUT 07/12/21 10/25/23 History linaclotide 145 mcg capsule 145 mcg PO DAILY . 07/27/21 10/25/23 History (Linzess) melatonin 5 mg tablet 5 mg PO HS PRN Insomnia 07/27/21 10/25/23 History albuterol sulfate 90 mcg/actuation 2 puff inhalation Q6H PRN BREATHING 01/19/22 10/25/23 History aerosol inhaler montelukast 10 mg tablet 10 mg PO DAILY ALLERGIES 04/17/22 10/25/23 History fluticasone propionate 50 2 spray intranasal BID PRN allergy 02/20/23 10/25/23 Rx mcg/actuation nasal symptoms 90 days #16 grams spray,suspension (Flonase Allergy Relief) trazodone 50 mg tablet 100 mg (2 x 50 mg) PO HS Insomnia 03/07/23 10/25/23 Rx #180 tabs methocarbamol 500 mg tablet 500 mg PO BID PRN spasms/pain #30 05/31/23 10/25/23 Rx tabs valacyclovir 500 mg tablet 500 mg PO Q12H #24 tabs 05/31/23 10/25/23 Rx losartan 100 mg tablet 100 mg PO DAILY Hypertension #90 06/20/23 10/25/23 Rx tabs pregabalin 225 mg capsule 225 mg PO BID NEUROPATHY 30 days 07/13/23 10/25/23 Rx #60 caps celecoxib 200 mg capsule 200 mg PO DAILY #90 caps 07/24/23 10/25/23 Rx vibegron 75 mg tablet (Gemtesa) See Rx Instructions .Route 08/21/23 10/25/23 Rx .COMPLEX #90 tabs fluticasone propionate 115 2 puff inhalation BID 90 days #12 08/22/23 10/25/23 Rx mcg-salmeterol 21 mcg/actuation grams HFA inhaler (Advair HFA) potassium chloride 10 mEq 10 meq PO DAILY Supplement 90 days 08/27/23 10/25/23 Rx tablet,extended release #90 tabs omeprazole 40 mg capsule,delayed 40 mg PO DAILY GERD #90 caps 09/10/23 10/25/23 Rx release buspirone 5 mg tablet 5 mg PO BID #60 tabs 09/18/23 10/25/23 Rx New Prescriptions to Start Prescriptions: Allergies Allergy/AdvReac Type Severity Reaction Status Date / Time No Known Allergies Allergy Verified 10/09/23 09:55 Assessment and Plan *Assessment and plan (1) Right hip pain: Status: Acute Category: Medical Code(s): M25.551 - Pain in right hip Plan patient is experiencing worsening pain throughout his right hip with limited range of motion. I did discuss with the patient that he may benefit from a right hip intra-articular injection. Risk and benefits were discussed with the patient and he would like to proceed forward with this plan of care. Patient has tried and failed conservative therapy including continued at home stretching exercise for longer than 6 weeks. I did also discuss with the patient that the hand numbness can be related to previous carpal tunnel syndrome as well as worsening cervical degenerative disc disease. Patient does state that he knows that his neck all the way down to his lumbar spine is bad. I did also discuss with patient regarding his updated imaging and have counseled him that we can resubmit for this however there are no guarantees that [facility] or [facility] will allow us to proceed forward with it. Patient does state that he is okay at this time and that we can follow-up at a later date. Patient will be scheduled for a right hip intra-articular injection under fluoroscopy. Patient has been instructed to contact the clinic with any concerns before the next appointment. Dr. Hyman has reviewed this note and agrees with this plan of care. This note was dictated using voice recognition software and make contain errors or omissions. All injections are used with Lidocaine or Bupivacaine and Depo Medrol.
== END 2023-10-25 23:59 | disposition home or self-care (01) ==
LOC: SC.PAIN 15:13
PROVIDERS: PCP Internal Medicine; Visit Provider Nurse Practitioner Family
DX: M25.551 Pain in right hip (principal); Z97.8 Presence of other specified devices; Z96.82 Presence of neurostimulator; Z96.642 Presence of left artificial hip joint; Z87.891 Personal history of nicotine dependence; Z73.89 Other problems related to life management difficulty; Z79.899 Other long term (current) drug therapy
CPT/HCPCS: 99212; G0463

== ENCOUNTER 2023-11-09 09:32 | Outpatient (CLI) | payer MEDICARE, MEDICAID, SELFPAY ==
[2023-11-09 17:11] LABS: Uric Acid 4.9 mg/dl (3.5-8.5)
== END 2023-11-09 23:59 | disposition home or self-care (01) ==
LOC: LAB.DROPOF 11-12 09:32
PROVIDERS: PCP Nurse Practitioner Family; Visit Provider Nurse Practitioner Family
DX: M10.9 Gout, unspecified (principal)
CPT/HCPCS: 84550

== ENCOUNTER 2023-11-20 07:28 | Outpatient (CLI) | payer MEDICARE, MEDICAID, SELFPAY ==
--- NOTE | 2023-11-20 07:36 | CT_ITS ---
FINAL REPORT TECHNIQUE: Axial images were obtained of the cervical spine by computed tomography. Coronal and sagittal reconstruction process performed. This study was performed with techniques to keep radiation doses as low as reasonably achievable (ALARA). Individualized dose reduction techniques using automated exposure control or adjustment of mA and/or kV according to the patient''s size were employed. CLINICAL HISTORY: BUE numbness and tingling, cervicalgia with stiffn COMPARISON: 10/13/2022 FINDINGS: Cervical vertebrae show normal height. There is significant disc space narrowing at C5-6, C6-7, and C7-T1, similar to previous. Small posterior osteophytes are seen at C4-5, C5-6, and C6-7. There is a broad-based midline disc protrusion at C7-T1 with mild spinal canal compromise There is no malalignment. The facets are properly aligned. IMPRESSION: Multilevel degenerative disc disease, stable from previous. Broad-based midline disc protrusion at C7-T1 with mild spinal canal compromise. Reviewed, Interpreted and Dictated by Fredi Blair MD Transcribed by Rae Barber Authenticated and [facility]
== END 2023-11-20 23:59 | disposition home or self-care (01) ==
LOC: RAD 07:30
PROVIDERS: PCP Internal Medicine; Visit Provider Nurse Practitioner Family
DX: R20.0 Anesthesia of skin (principal); R20.2 Paresthesia of skin
CPT/HCPCS: 72125

== ENCOUNTER 2023-12-26 10:30 | Outpatient (POV) | payer MEDICARE, MEDICAID, SELFPAY ==
[2023-12-26 11:09] VITALS: BP 119/71; PULSE 71; RESP 16; O2SAT 96; BMI 30.8
--- NOTE | 2023-12-26 11:18 | EXP.PAIN.PRO ---
Procedure Date: 12/26/23 Time: 11:19 Anesthesiologist:: Ana Ko APRN Complications:: None Pre-procedure Diagnosis:: Degenerative disc disease of lumbar spine with lumbar radiculopathy symptoms, right hip pain Post-procedure Diagnosis:: Same Indications for Procedure:: Patient is a pleasant 73-year-old male who presents today for follow-up of right intra-articular injection on 11/13/2023 and intrathecal adjustment and reprogram. Today he rates his pain a 5 out of 10. He does state that he had about 50% improvement of his right hip symptoms. He does state that he is still having some chronic low back pain as well as right ankle pain. He states that the ankle really starts to bother him once he has been driving for about 15 minutes. 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 Patient does state his overall leg and back issues do also cause significant disability and interfere with his ability perform activities of daily living such as cooking and cleaning. Patient is currently managed with bupivacaine 10 mg/mL with a daily dose of 1.54 mg/day. He denies any side effects from this medication. He is requesting if we can come down a little bit on the dosage. His Leeroy has been reviewed and is appropriate. Physical Exam: General: Alert and oriented x3, no acute distress, pleasant and cooperative Lungs: Respirations even and unlabored, symmetrical chest expansion Eyes: PERRL Musculoskeletal: Flexion and extension of lumbar [spine] somewhat guarded secondary to pain, [antalgic gait noted] Neurological: Speech clear, no gross sensory deficit Procedure Details:: Informed consent was obtained and the risk and benefits of the procedure were explained to the patient. Patient was taken to the procedure room where noninvasive monitoring was placed including noninvasive blood pressure cuff and pulse oximeter. Patient's pump was interrogated and was reprogrammed to bupivacaine 1.38 mg/day. The patient tolerated the procedure well with no complications. Plan and Disposition:: Patient is experiencing significant pain throughout his low back with radiating symptoms into his lower extremities primarily along the right side more than the left. Patient does have numbness and tingling. Patient did have limited range of motion of his lumbar spine. I did discuss with the patient that he may benefit from lumbar epidural that may improve some of his pain symptoms from his low back all the way down to the ankle versus possible nerve block in and around his right ankle. Patient does state that he would like to try the epidural. Patient has tried and failed conservative therapy including continued at home stretching exercise for longer than 12 weeks. Patient will be scheduled for a LESI L4-L5 under fluoroscopy. Patient did tolerate his intrathecal decrease with no complications and was discharged neurologically intact. Patient has been instructed to contact the clinic with any concerns before the next appointment. Dr. Hyman has reviewed this note and agrees with this plan of care. This note was dictated using voice recognition software and make contain errors or omissions. All injections are used with Lidocaine or Bupivacaine and Depo Medrol.
== END 2023-12-26 23:59 | disposition home or self-care (01) ==
PROVIDERS: PCP Internal Medicine; Visit Provider Nurse Practitioner Family
DX: M51.16 Intervertebral disc disorders with radiculopathy, lumbar region (principal); M25.551 Pain in right hip; Z73.89 Other problems related to life management difficulty
CPT/HCPCS: 62368; 99212; 99213; G0463

== ENCOUNTER 2024-01-08 13:17 | Day surgery (SDC) | payer MEDICARE, MEDICAID, SELFPAY ==
[2024-01-08 13:35] VITALS: BP 107/56; PULSE 68; RESP 16; TEMP 36.6; O2SAT 95; BMI 30.8
[2024-01-08] MEDS: methylPREDNISolone ACETATE 80MG/ML VIAL 80 MG (13:45)
[2024-01-08 13:46] VITALS: BP 114/72; PULSE 71; RESP 18; O2SAT 95
[2024-01-08 13:52] VITALS: BP 114/72; PULSE 84; RESP 18; O2SAT 95
--- NOTE | 2024-01-08 13:56 | EXP.PAIN.PRO ---
Procedure Date: 01/08/24 Time: 14:00 Anesthesiologist:: Eyad Biggs CRNA Complications:: None Pre-procedure Diagnosis:: Degenerative disc lumbar spine multilevels. Lumbar radiculopathy. Lumbar spondylosis. Multilevel lumbar facet arthropathy. Lumbar disc bulge. Lumbar postlaminectomy syndrome. Post-procedure Diagnosis:: Same. Indications for Procedure:: Patient is a pleasant 73-year-old male who comes our clinic today for lumbar epidural steroid injection at the L4-5 level. However, after further review under fluoroscopy the L4-5 level is not accessible. The injection will begin at the L3-4 level. Patient also being managed with bupivacaine intrathecal pain pump. Pump is doing well. Patient not reporting side effects or complications. Patient describes bilateral hip and leg radicular symptoms at times. Procedure Details:: Procedure: Lumbar epidural steroid injection under fluoroscopy Informed consent was obtained and the risks and benefits of the procedure were explained to the patient. The patient was taken to the procedure room and noninvasive monitors placed, including noninvasive blood pressure cuff and pulse oximeter. The back was viewed using C-arm Fluoroscopy and prepped using Chloraprep as a cleansing solution and the L3-4 interspace was palpated. Skin and subcutaneous tissues were anesthetized using lidocaine 1.5% and a 25-gauge needle. After this, an 18-gauge Touhy epidural needle was placed into the L3-4 interspace and advanced using fluoroscopic guidance and loss of resistance to air until the epidural space was encountered. After confirmation of needle placement in the epidural space, with dye, a solution containing normal saline, 3 mL and Depo-Medrol 80 mg were incrementally injected into the lumbar epidural space. The patient tolerated the procedure well with no complications. The patient was observed in the Pain Clinic and then discharged home neurologically intact. Plan and Disposition:: Patient was discharged without incident.
[2024-01-08 14:16] VITALS: BP 103/59; PULSE 77; RESP 16; O2SAT 97
== END 2024-01-08 14:16 | disposition home or self-care (01) ==
PROVIDERS: PCP Internal Medicine; Visit Provider Nurse Anesthetist, Certified Registered
DX: M51.16 Intervertebral disc disorders with radiculopathy, lumbar region (principal); M47.26 Other spondylosis with radiculopathy, lumbar region; M96.1 Postlaminectomy syndrome, not elsewhere classified
CPT/HCPCS: 62323; J1010

== ENCOUNTER 2024-01-23 14:07 | Outpatient (POV) | payer MEDICARE, MEDICAID, SELFPAY ==
[2024-01-23 14:41] VITALS: BP 96/50; PULSE 81; RESP 16; O2SAT 93; BMI 30.8
--- NOTE | 2024-01-23 14:53 | EXP.PAIN.SOA ---
[facility] Disclaimer: The information contained in this section may have been updated after the patient was seen, as this information can be updated by other users. Medical History Allergic rhinitis Allergies Arthritis Asthma COPD (chronic obstructive pulmonary disease) Cough variant asthma Dyspnea on exertion Family history of asthma Gallbladder disease Gout Hearing loss History of back pain History of gastroesophageal reflux (GERD) Hypertension Insomnia Currently on trazodone 100 mg p.o. nightly and doing well Sleep apnea Stopped smoking with greater than 15 pack year history Systolic ejection murmur Wheezing without diagnosis of asthma Surgical History History of back surgery History of carpal tunnel surgery History of cholecystectomy History of hip replacement, total LEFT History of knee surgery RIGHT Family History Other Cancer Coronary artery disease Hypertension Stroke Social History Smoking Status: Former smoker tobacco type: cigarettes packs per day: 0 years smoked: 6 how long ago did patient quit smoking: QUIT 40 YEARS AGO second hand exposure: No alcohol intake: current alcohol intake frequency: holidays/special occasions only substance use type: denies use current occupational status: other Travel in the last 8 weeks: None household members: spouse housing: house current occupational exposures/hazards: No caffeine: Yes PM Subjective & Objective Subjective Subjective:: Patient is a pleasant 73-year-old male who presents today for follow-up of lumbar epidural steroid injection L3-L4 on 01/08/2024. Today he rates his pain a 3 out of 10. Patient denies any new injury or trauma. He does state that this did help at least 40% improvement if not more. He does state he still continues to have the chronic numbness on the bottom of his feet bilaterally. Patient is currently managed with bupivacaine 10 mg/mL and states that he is at home refill nurse did just lower this medication again to see if it made any change in that neuropathy symptoms. Patient is currently managed with pregabalin 225 mg twice a day however he states he only takes this once a day. Patient is asking whether or not we think that it would be beneficial to start taking this again twice a day. Patient is prescribed compounded cream that he does state he still uses from time to time with improvement. His Leeroy has been reviewed and is appropriate. Review of Systems: General: No recent weight changes, no fever, no sleep disturbances Respiratory: No cough, no shortness of air, no recurring pulmonary infections Cardiovascular/peripheral vascular: No chest pain, no palpitations, no edema, no shortness of breath Gastrointestinal: No new onset incontinence, normal bowel movements reported Genitourinary: No new onset incontinence Musculoskeletal: Bilateral feet pain Psychiatric: [Normal mood/affect] Neurological: [Denies weakness in extremities], [denies balance issues] Pain at rest (0-10 scale): 3 Objective Objective:: Physical Exam: General: Alert and oriented x3, no acute distress, pleasant and cooperative Lungs: Respirations even and unlabored, symmetrical chest expansion Eyes: PERRL Musculoskeletal: Flexion and extension of lumbar [spine] somewhat guarded secondary to pain, [antalgic gait noted] Neurological: Speech clear, no gross sensory deficit Has patient had previous pain injection?: Yes Percent improvement in pain since last injection: At least 40% Conservative treatment options previously tried: Home exercise plan Length of treatment: Longer than 12 weeks Meds Home Medications and Allergies Home Medications ?Medication ?Instructions ?Recorded ?Confirmed ?Type vitamin D3 25 mcg (1,000 unit)-vit 1 each PO DAILY Supplement 03/20/17 01/23/24 History K2 90 mcg disintegrating tablet finasteride 5 mg tablet 5 mg PO DAILY prostate 03/02/21 01/23/24 History allopurinol 300 mg tablet 300 mg PO DAILY GOUT 07/12/21 01/23/24 History linaclotide 145 mcg capsule 145 mcg PO DAILY . 07/27/21 01/23/24 History (Linzess) melatonin 5 mg tablet 5 mg PO HS PRN Insomnia 07/27/21 01/23/24 History albuterol sulfate 90 mcg/actuation 2 puff inhalation Q6H PRN BREATHING 01/19/22 01/23/24 History aerosol inhaler montelukast 10 mg tablet 10 mg PO DAILY ALLERGIES 04/17/22 01/23/24 History trazodone 50 mg tablet 100 mg (2 x 50 mg) PO HS Insomnia 03/07/23 01/23/24 Rx #180 tabs methocarbamol 500 mg tablet 500 mg PO BID PRN spasms/pain #30 05/31/23 01/23/24 Rx tabs losartan 100 mg tablet 100 mg PO DAILY Hypertension #90 06/20/23 01/23/24 Rx tabs vibegron 75 mg tablet (Gemtesa) See Rx Instructions .Route 08/21/23 01/23/24 Rx .COMPLEX #90 tabs fluticasone propionate 115 2 puff inhalation BID 90 days #12 08/22/23 01/23/24 Rx mcg-salmeterol 21 mcg/actuation grams HFA inhaler (Advair HFA) omeprazole 40 mg capsule,delayed 40 mg PO DAILY GERD #90 caps 09/10/23 01/23/24 Rx release buspirone 5 mg tablet 5 mg PO BID #60 tabs 09/18/23 01/23/24 Rx potassium chloride 10 mEq See Rx Instructions .Route 12/03/23 01/23/24 Rx tablet,extended release .COMPLEX #90 tabs pregabalin 225 mg capsule 225 mg PO BID NEUROPATHY 30 days 01/14/24 01/23/24 Rx #60 caps olopatadine 665 mcg-mometasone 25 2 spray intranasal BID #29 grams 01/18/24 01/23/24 Rx mcg/spray nasal spray piroxicam 20 mg capsule 20 mg PO DAILY #30 caps 01/18/24 01/23/24 Rx New Prescriptions to Start Prescriptions: Allergies Allergy/AdvReac Type Severity Reaction Status Date / Time No Known Allergies Allergy Verified 01/18/24 11:17 Assessment and Plan *Assessment and plan (1) Lower extremity numbness: Status: Acute Category: Medical Code(s): R20.0 - Anesthesia of skin Plan Patient has had some improvement following his lumbar epidural. We did try and go and at the L4-L5 level however it was inaccessible and did have to be done in the L3-L4 level. I did discuss with the patient in future he may still benefit from additional injections such as bilateral posterior tibial nerve blocks to see if this does make any change to his numbness on the bottom of his feet. We will follow-up with this at future visits. I did also discuss with the patient that I would recommend him try his pregabalin twice a day however if he does not notice any additional improvement after a week or so that it may not be beneficial to take it twice a day. Patient agrees with this plan of care. Patient will contact us for his next follow-up appointment. Patient has been instructed to contact the clinic with any concerns before the next appointment. Dr. Hyman has reviewed this note and agrees with this plan of care. This note was dictated using voice recognition software and make contain errors or omissions. All injections are used with Lidocaine or Bupivacaine and Depo Medrol.
== END 2024-01-23 23:59 | disposition home or self-care (01) ==
LOC: SC.PAIN 14:09
PROVIDERS: PCP Nurse Practitioner Family; Visit Provider Nurse Practitioner Family
DX: R20.0 Anesthesia of skin (principal); Z96.642 Presence of left artificial hip joint; Z96.651 Presence of right artificial knee joint; Z79.899 Other long term (current) drug therapy; Z87.891 Personal history of nicotine dependence
CPT/HCPCS: 99212; G0463

== ENCOUNTER 2024-06-30 13:37 | Outpatient (CLI) | payer MEDICARE, MEDICAID, SELFPAY ==
--- OUTSIDE RECORDS SUMMARY | 2024-06-30 13:39 | XMS_ITS ---
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 Role Phone Edgard Ko MD [phone] Problems Includes: Active, inactive, and resolved Problems All Visits Onset Date Resolved Date Provider Condition S tatus Neck Pain 06/05/2024 Edgard Ko MD Active Last Documented On 5 10:52AM ; [facility] Plan of Treatment Findings Encounter Date Patient screened for future fall risk: documentation of any fall with injury in past year Follow Up with Edgard Ko MD 06/26/2024 Last Documented On 5 3:20PM ; [facility] Patient screened for future fall risk: documentation of any fall with injury in past year Physician Specified with Edgard Ko MD 06/05/2024 Last Documented On 5 12:51PM ; [facility] Instructions to patient Lose weight Last Documented On 5 2:16PM ; [facility] Lose weight Last Documented On 5 10:54AM ; [facility] Assessments Includes: Assessments for all patient encounters Findings Encounter Date Overweight Follow Up with Edgard Ko MD 06/26/2024 Last Documented On 5 3:20PM ; [facility] Overweight Physician Specified with Edgard Ko MD 06/05/2024 Last Documented On 5 12:51PM ; [facility] Instructions Includes: Instructions for all patient encounters Instructions to patient Lose weight Last Documented On 5 2:16PM ; [facility] Lose weight Last Documented On 5 10:54AM ; [facility] Medical Equipment - Implanted Devices Includes: Current and historical Devices No Medical Equipment Recorded Medications Includes: Current and historical Medications Current Medications (continue as prescribed) Omeprazole 40 MG Oral Capsule Delayed Release 06/06/19 Provider: Diagnosis: Last Documented On 11:42AM By Rivas Powell ; [facility] Piroxicam 20 MG Oral Capsule 06/03/2024 Provider: DK COOL Diagnosis: Last Documented On 10:52AM By Nikolay Vivar ; [facility] Myrbetriq 25 MG Oral Tablet Extended Release 24 Hour 05/22/2024 Provider: DK COOL Diagnosis: Last Documented On 10:52AM By Nikolay Vivar ; [facility] Finasteride 5 MG Oral Tablet 05/21/2024 Provider: OLIVA HOFFMAN Diagnosis: Last Documented On 10:53AM By Nikolay Vivar ; [facility] traZODone HCl 50 MG Oral Tablet 05/21/2024 Provider: DK COOL Diagnosis: Last Documented On 5 10:53AM By Nikolay Vivar ; [facility] traMADol HCl 50 MG Oral Tablet 05/20/2024 Provider: DK COOL Diagnosis: Last Documented On 5 10:53AM By Nikolay Vivar ; [facility] Pregabalin 225 MG Oral Capsule 05/14/2024 Provider: DK COOL Diagnosis: Last Documented On 10:53AM By Nikolay Vivar ; [facility] Azelastine-Fluticasone 137-5 0 MCG/ACT Nasal Suspension 05/12/2024 Provider: DK COOL Diagnosis: Last Documented On 5 10:53AM By Nikolay Vivar ; [facility] Losartan Potassium 100 MG Oral Tablet 04/03/2024 Pro vider: Diagnosis: Last Documented On 10:53AM By Nikolay Vivar ; [facility] Medications Administered Includes: Administered Medications in patient's chart No Administered Medications Recorded Vital Signs Includes: Vital Signs from 07/01/2023 through 06/30/2024 Vital Name 06/26/2024 03:19P 06/05/2024 11: 19A Height (in) 76 76 Weight (lb) 260 260 Body Mass Index 31.6 31.6 Body Surface Area 2.5 2.5 Pain Level 5 4 Last Documented: On 06/26/2024 3:20PM ; [facility] On 06/05/2024 11:19AM ; [facility] Results Includes: Results from 07/01/2023 through 06/30/2024 No Results Recorded For Specified Dates History of Present Illness History of Present Illness not supported for this document type No History of Present Illness Recorded Social History Description Last Updated Caffeine use 06/05/2024 Last Documented On 12:51PM ; [facility] Exercising regularly 06/05/2024 Last Documented On 12:51PM ; [facility] No recent change in diet 06/05/2024 Last Documented On 12:51PM ; [facility] Not a current smoker. 06/05/2024 Last Documented On 12:51PM ; [facility] Not using alcohol 06/05/2024 Last Documented On 12:51PM ; [facility] Not using drugs 06/05/2024 Last Documented On 12:51PM ; [facility] Smoking Status Unknown Procedures and Surgical History Includes: Procedures from 07/01/2023 through 06/30/2024 Procedures Code Diagnosis Performing Provider Service Location Service Date Nerve Conduction Studies; 9-10 studies 70901 Carpal tunnel syndrome, bilateral upper limbs Edgard Ko MD [facility] 06/23/2024 Last Documented On 5 10:40AM ; [facility] Needle EMG, complete, five or more muscles 39442 Carpal tunnel syndrome, bilateral upper limbs Edgard Ko MD [facility] 06/23/2024 Last Documented On 5 10:40AM ; [facility] Surgical History Last Updated History of History of Gallbladder 2024 Last Documented On 5 12:51PM ; [facility] History of Previous Fractures 06/05/2024 Last Documented On 04/04/202 5 12:51PM ; [facility] History of total hip replacement 025 Last Documented On 5 12:51PM ; [facility] Medical History Includes: Medical History in patient's chart Description Last Updated History of arthritis 06/05/2024 Last Documented On 5 12:51PM ; [facility] History of asthma 06/05/2024 Last Documented On 5 12:51PM ; [facility] History of Hypertension 06/05/2024 Last Documented On 5 12:51PM ; [facility] Family History Includes: Family History in patient's chart Description Last Updated Family history of cancer 06/05/2024 Last Documented On 5 12:51PM ; [facility] Family history of heart disease 06/06/19 25 Last Documented On 5 12:51PM ; [facility] Family history of rheumatoid arthritis 0 06/05/2024 Last Documented On 5 12:51PM ; [facility] No significant family history 06/05/2024 Last Documented On 5 12:51PM ; [facility] Review of Systems Review of Systems not supported for this document type No Review of Systems Recorded Mental Status Description No anxiety Functional Status No Functional Status Recorded Physical Exam Physical Exam not supported for this document type No Physical Exam Recorded Allergies Includes: Active, inactive, and resolved Allergies No Known Allergies Encounters Includes: Encounters from 07/01/2023 through 06/30/2024 Encounter Provider Location Date Check-In Time Check-Out Time Diagnosis Follow Up Edgard Ko MD [facility] 06/27/19 2:11PM 3:06PM Overweight EMG [facility] 06/24/19 4:47PM 06/05/2024 11:59PM Physician Specified Edgard Ko MD [facility] 06/06/19 10:31AM 11:08AM Overweight Insurance Includes: Active Insurance Policies Plan Name Member ID Group # Subscriber Relationship Effect meir Dates 1 - [employer] MED[employer]ARE [id number] Haile mullen 2 - Department For [facility] [id number] Haile Clancy Self Clinical Notes Includes: Signed Clinical Notes starting from 02/16/2022 * Progress note Date Encounter Last Documented by 06/05/2024 Physician Specified Wes kelley on 06/06/2024; 12:51 PM, Edgard Ko MD; [facility] Active Problems & Conditions - Neck Pain Chief Complaint The Chief Complaint is: Neck pain. Referred Here Referred by. History of Present Illness Haile Clancy is a 73 year old male. - Symptoms pain better: pain medicine and tylenol pain worse: walking. - Allergy list reviewed - Problem list reviewed - Medication list reviewed - Previous history of new onset pain 6 months of pain - Pain is constant (100% of the time) - Patient pain level from 1-10: 4 - History of Home Exercise - No previous treatment. Faith More - - Review of medications documented Current Medication - Azelastine-Fluticasone 137-50 MCG/ACT Nasal Suspension 30 days, 0 refills - Finasteride 5 MG Oral Tablet 90 days, 0 refills - Losartan Potassium 100 MG Oral Tablet 90 days, 0 refills - Myrbetriq 25 MG Oral Tablet Extended Release 24 Hour 90 days, 0 refills - Omeprazole 40 MG Oral Capsule Delayed Release take as directed 0 days, 0 refills - Piroxicam 20 MG Oral Capsule 90 days, 0 refills - Pregabalin 225 MG Oral Capsule 30 days, 0 refills - traMADol HCl 50 MG Oral Tablet 30 days, 0 refills - traZODone HCl 50 MG Oral Tablet 90 days, 0 refills Past Medical/Surgical History Diagnoses: Asthma Hypertension. Arthritis Surgical: - History of Gallbladder - Previous Fractures - Total hip replacement Social History Not a current smoker. Current diet: No recent change in diet. Caffeine use: Caffeine use. Alcohol: Not using alcohol. Drug Use: Not using drugs. Habits: Exercising regularly. Allergies - No Known Allergies Family History Cancer Heart disease No significant family history Rheumatoid arthritis Review Of Systems Systemic: Feeling tired. No recent weight loss and no recent weight gain. Head: No headache. Sinus pain. Eyes: Vision problems. No Cataracts, no Glasses/Contacts, and no Glaucoma. Otolaryngeal: Hearing loss. No tinnitus. Cardiovascular: No chest pain or discomfort, no palpitations, no Hypertension, and no High Cholesterol. Pulmonary: Daytime asthma symptoms. No chronic cough. No wheezing. Gastrointestinal: No heartburn and no abdominal pain. No Indigestion, no Peptic Ulcer, no GI Stomach Bleed, no Ulcers, and no Acid Reflux. Endocrine: No hot flashes. Muscle weakness. No Diabetes, no Hypothyroid, and no Hyperthyroid. Hematologic: Easy bleeding and a tendency for easy bruising. No Anemia. Musculoskeletal: Arthritis and lower back pain. No soft tissue swelling. Pain localized to one or more joints. Neurological: No dizziness and no convulsions. Numbness. Psychological: No anxiety, no emotional lability, no depression, and no insomnia. Not crying for no reason. Skin: No dry skin. No Ulcers, no Scars, and no rash. Allergic and Immunologic: No complaint of seasonal allergic reaction. Physical Findings - Vitals taken 06/05/2024 11:19 am Height 76 in Weight 260 lbs Body Mass Index 31.6 kg/m2 Body Surface Area 2.5 m2 Pain Level 4 Assessment - Overweight Previous Tests Imaging: CT Scan: CT scan. MRI Scan: An MRI was performed. Available previous imaging studies were reviewed Available previous history reviewed Counseling/Education - Tobacco non-user - Use of tobacco assessment performed - Lose weight Plan - Patient screened for future fall risk: documentation of any fall with injury in past year Fall Risk Assessment: This patient has been identified as a fall risk. Balance/gait along with postural blood pressure, vision and home fall hazards have been assessed. Medications have been reviewed, and recommendations made with regard to contributing factors for future falls. Plan of care: Consideration of vitamin D supplementation along with balance and strength training with consideration for formal physical therapy has been discussed with the patient. Notes Patient is here with complaints of neck pain and bilateral arm weakness. He has lot of pain that radiates into his shoulders and into his hands. It has been going on for about 6 months. He had injections to his shoulders in the past many years ago. He has got a spinal cord stimulator in his low back and the pain pump as well. He has got some diffuse arthritis of his hands. He has got 4+ out of 5 deltoid biceps triceps wrist extension. No long tract findings. MRI of the cervical spine show some diffuse spondylosis but not a great deal of spinal stenosis. I have recommended an EMG and nerve conduction study. I do believe that more likely he has some of his problems are coming from a degenerative shoulder. We may consider injections of the shoulder when he comes back. We will see him back with the EMG and nerve conduction study. This dictation was done with voice recognition software and may contain errors and omissions. Health Reminders - Assess BMI satisfied 06/05/2024. - Assess Tobacco Use satisfied 06/05/2024. - Follow Up Plan BMI Management satisfied 06/05/2024.
--- OUTSIDE RECORDS SUMMARY | 2024-06-30 13:39 | XMS_ITS ---
Care Plan - [facility] Created on: June 30, 2024 Haile Clancy : 1950 Sex: Male Author Organization [facility] Address [address] [place] [address] Phone Care Team Providers Care Pediatric Registered Nurse Name Role Phone Maikel MEYER, Edgard Thomason Unavailable [phone]
--- OUTSIDE RECORDS SUMMARY | 2024-06-30 13:39 | XMS_ITS | Clinical Summary ---
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 Name Role Phone Maikel MEYER, Edgard Bhatt [phone] Reason for Visit and Chief Complaint EMG Problems Includes: Problems addressed during this encounter and other active Problems All Visits Onset Date Resolved Date Provider Condition S tatus Neck Pain 06/05/2024 Edgard Ko MD Active Last Documented On 10:52AM ; [facility] Plan of Treatment No Plan of Treatment Recorded Assessments Includes: Assessments from this encounter No Assessments Recorded Medical Equipment - Implanted Devices Includes: Current Devices No Medical Equipment Recorded Medications Includes: Medications discussed during this encounter and other current Medications Current Medications (continue as prescribed) Omeprazole 40 MG Oral Capsule Delayed Release 06/06/19 Provider: Diagnosis: Last Documented On 5 11:42AM By Rivas Powell ; [facility] Piroxicam 20 MG Oral Capsule 06/03/2024 Provider: DK COOL Diagnosis: Last Documented On 5 10:52AM By Nikolay Vivar ; [facility] Myrbetriq 25 MG Oral Tablet Extended Release 24 Hour 05/22/2024 Provider: DK COOL Diagnosis: Last Documented On 5 10:52AM By Nikolay Vivar ; [facility] Finasteride 5 MG Oral Tablet 05/21/2024 Provider: OLIVA HOFFMAN Diagnosis: Last Documented On 5 10:53AM By Nikolay Vivar ; [facility] traZODone HCl 50 MG Oral Tablet 05/21/2024 Provider: DK COOL Diagnosis: Last Documented On 5 10:53AM By Nikolay Vivar ; [facility] traMADol HCl 50 MG Oral Tablet 05/20/2024 Provider: DK COOL Diagnosis: Last Documented On 5 10:53AM By Nikolay Vivar ; [facility] Pregabalin 225 MG Oral Capsule 05/14/2024 Provider: DK COOL Diagnosis: Last Documented On 5 10:53AM By Nikolay Vivar ; [facility] Azelastine-Fluticasone 137-5 0 MCG/ACT Nasal Suspension 05/12/2024 Provider: DK COOL Diagnosis: Last Documented On 5 10:53AM By Nikolay Vivar ; [facility] Losartan Potassium 100 MG Oral Tablet 04/03/2024 Pro vider: Diagnosis: Last Documented On 5 10:53AM By Nikolay Vivar ; [facility] Medications Administered Includes: Administered Medications from this encounter No Administered Medications Recorded Results Includes: Results discussed during this encounter No Results Recorded For Specified Dates History of Present Illness Includes: History of Present Illness from this encounter No History of Present Illness Recorded Social History No Social History Recorded - Smoking Status Unknown Procedures and Surgical History Includes: Procedures from this encounter Procedures Code Diagnosis Performing Provider Service Location Service Date Nerve Conduction Studies; 9-10 studies 40253 Carpal tunnel syndrome, bilateral upper limbs Edgard Ko MD [facility] 06/23/2024 Last Documented On 5 10:40AM ; [facility] Needle EMG, complete, five or more muscles 00670 Carpal tunnel syndrome, bilateral upper limbs Edgard Ko MD [facility] 06/23/2024 Last Documented On 5 10:40AM ; [facility] Medical History Includes: Medical History addressed during this encounter No Medical History Recorded Family History Includes: Family History addressed during this encounter No Family History Recorded Review of Systems Includes: Review of Systems from this encounter No Review of Systems Recorded Mental Status Includes: Mental Status from this encounter No Mental Status Recorded Functional Status Includes: Functional Status from this encounter No Functional Status Recorded Physical Exam Includes: Physical Exam from this encounter No Physical Exam Recorded Allergies Includes: Active Allergies No Known Allergies Encounters Encounter Provider Location Date Check-In Time Check-Out Time Diagnosis EMG [facility] 06/23/2024 4:47PM 11:59PM Insurance Includes: Active Insurance Policies Plan Name Member ID Group # Subscriber Relationship Effect meir Dates 1 - [employer] MED[employer]ARE [id number] Haile Aston Rekha f 2 - [facility] [id number] Haile Clancy Self Clinical Notes Includes: Clinical Notes from this encounter No Clinical Notes Recorded
--- OUTSIDE RECORDS SUMMARY | 2024-06-30 13:39 | XMS_ITS | Clinical Summary ---
Author Organization [facility] , [facility] Address [address] [place] [address] Phone Care Team Providers Care Paid Internship Name Role Phone Maikel MEYER, Edgard Thomason Unavailable [phone] Reason for Visit and Chief Complaint The Chief Complaint is: neck pain, follow up EMG and bilateral shoulder pain Problems Includes: Problems addressed during this encounter and other active Problems All Visits Onset Date Resolved Date Provider Condition S tatus Neck Pain 06/05/2024 Edgard Ko MD Active Last Documented On 10:52AM ; [facility] Plan of Treatment - Patient screened for future fall risk: documentation of any fall with injury in past year - Last Documented On 06/26/2024 3:20PM ; [facility] Fall Risk Assessment: This patient has been [...] therapy has been discussed with the patient. - Last Documented On 06/26/2024 3:20PM ; [facility] Patient was seen by myself and Dr. Maikel Jose PA-C. Patient will follow up with us as needed he was told if this shots do not help his shoulder he can come back to see us. We can try bracing at night for his carpal tunnel. He said he does have some bracing at home. Patient was given a cortisone injection for both shoulders the glenohumeral joint 4 cc of lidocaine and Marcaine 2 cc of betamethasone. Band- Aid applied afterwards. He tolerated it well. If the numbness in his hands persist with the bracing we would recommend he follow up with one of the hand surgeons - Last Documented On 06/26/2024 3:20PM ; [facility], [facility] Instructions to patient Lose weight Last Documented On 2:16PM ; [facility] Assessments Includes: Assessments from this encounter Findings - Overweight - Last Documented On 06/26/2024 3:20PM ; [facility] Bilateral shoulder OA - Last Documented On 06/26/2024 3:20PM ; [facility] Cervical DDD - Last Documented On 06/26/2024 3:20PM ; [facility] Bilateral carpal tunnel - Last Documented On 06/26/2024 3:20PM ; [facility], [facility] Instructions Includes: Instructions from this encounter Instructions to patient Lose weight Last Documented On 2:16PM ; [facility], [facility] Medical Equipment - Implanted Devices Includes: Current Devices No Medical Equipment Recorded Medications Includes: Medications discussed during this encounter and other current Medications Current Medications (continue as prescribed) Omeprazole 40 MG Oral Capsule Delayed Release 06/06/19 Provider: Diagnosis: Last Documented On 11:42AM By Rivas Powell ; [facility], [facility] Piroxicam 20 MG Oral Capsule 06/03/2024 Provider: DK COOL Diagnosis: Last Documented On 10:52AM By Nikolay Vivar ; [facility], [facility] Myrbetriq 25 MG Oral Tablet Extended Release 24 Hour 05/22/2024 Provider: DK COOL Diagnosis: Last Documented On 10:52AM By Nikolay Vivar ; [facility], [facility] Finasteride 5 MG Oral Tablet 05/21/2024 Provider: OLIVA HOFFMAN Diagnosis: Last Documented On 10:53AM By Nikolay Vivar ; [facility], [facility] traZODone HCl 50 MG Oral Tablet 05/21/2024 Provider: DK COOL Diagnosis: Last Documented On 10:53AM By Nikolay Vivar ; [facility], [facility] traMADol HCl 50 MG Oral Tablet 05/20/2024 Provider: DK COOL Diagnosis: Last Documented On 10:53AM By Nikolay Vivar ; [facility], [facility] Pregabalin 225 MG Oral Capsule 05/14/2024 Provider: DK COOL Diagnosis: Last Documented On 10:53AM By Nikolay Vivar ; [facility] Azelastine-Fluticasone 137-5 0 MCG/ACT Nasal Suspension 05/12/2024 Provider: DK COOL Diagnosis: Last Documented On 5 10:53AM By Nikolay Vivar ; [facility] Losartan Potassium 100 MG Oral Tablet 04/03/2024 Pro vider: Diagnosis: Last Documented On 5 10:53AM By Nikolay Vivar ; [facility], [facility] Medications Administered Includes: Administered Medications from this encounter No Administered Medications Recorded Vital Signs Includes: Vital Signs from this encounter Vital Name 06/26/2024 03:19P Height (in) 76 Weight (lb) 260 Body Mass Index 31.6 Body Surface Area 2.5 Pain Level 5 Last Documented: On 06/26/2024 3:20PM ; [facility] Results Includes: Results discussed during this encounter No Results Recorded For Specified Dates History of Present Illness Includes: History of Present Illness from this encounter LEILANI Clancy is a 73 year old male. [...] More - - Review of medications documented Patient is here today for follow up his bilateral upper extremity EMG does have degenerative changes in his neck he does not notice that his hands do go numb right side it is worse in the left has not tried any bracing with it. Does have limited range motion with both shoulders is also on pregabalin. He states he has had previous carpal tunnel surgery years ago on both hands Social History Description Last Updated Caffeine use 06/05/2024 Last Documented On 5 2:16PM ; [facility] Exercising regularly 06/05/2024 Last Documented On 5 2:16PM ; [facility], [facility] No recent change in diet 06/05/2024 Last Documented On 5 2:16PM ; [facility], [facility] Not a current smoker. 06/05/2024 Last Documented On 5 2:16PM ; [facility] Not using alcohol 06/05/2024 Last Documented On 2:16PM ; [facility], [facility] Not using drugs 06/05/2024 Last Documented On 2:16PM ; [facility] Smoking Status Unknown Procedures and Surgical History Includes: Procedures from this encounter Procedures Code Diagnosis Performing Provider Service L ocation Service Date CT scan 94568 Last Documented On 2:16PM ; [facility], [facility] an MRI was performed [id number] Last Documented On 2:16PM ; [facility], [facility] Surgical History Last Updated History of History of Gallbladder 2024 Last Documented On 2:16PM ; [facility], [facility] History of Previous Fractures 06/05/2024 Last Documented On 2:16PM ; [facility], [facility] History of total hip replacement Last Documented On 2:16PM ; [facility], [facility] Medical History Includes: Medical History addressed during this encounter Description Last Updated History of arthritis 06/05/2024 Last Documented On 2:16PM ; [facility] History of asthma 06/05/2024 Last Documented On 2:16PM ; [facility], [facility] History of Hypertension 06/05/2024 Last Documented On 2:16PM ; [facility], [facility] Family History Includes: Family History addressed during this encounter Description Last Updated Family history of cancer 06/05/2024 Last Documented On 5 2:16PM ; [facility] Family history of heart disease 06/06/19 Last Documented On 2:16PM ; [facility], [facility] Family history of rheumatoid arthritis 0 06/05/2024 Last Documented On 2:16PM ; [facility] No significant family history 06/05/2024 Last Documented On 2:16PM ; [facility], [facility] Review of Systems Includes: Review of Systems from this encounter Systemic: Feeling tired. No recent weight loss [...] Immunologic: No complaint of seasonal allergic reaction. Mental Status Includes: Mental Status from this encounter Description No anxiety Functional Status Includes: Functional Status from this encounter No Functional Status Recorded Physical Exam Includes: Physical Exam from this encounter Allergies Includes: Active Allergies No Known Allergies Encounters Encounter Provider Location Date Check-In Time Check-Out Time Diagnosis Follow Up Edgard Ko MD [facility] 5 2:11PM 3:06PM Overweight Insurance Includes: Active Insurance Policies Plan Name Member ID Group # Subscriber Relationship Effect meir Dates 1 - [employer] MED[employer]ARE [id number] Haile Clancy Rekha f 2 - [facility] [employer] [facility] [id number] Haile Clancy Self Clinical Notes Includes: Clinical Notes from this encounter No Clinical Notes Recorded
--- OUTSIDE RECORDS SUMMARY | 2024-06-30 13:39 | XMS_ITS | Clinical Summary ---
Author Organization [facility] Address [address] [place] [address] Phone Care Team Providers Care Retail Agent Name Role Phone Maikel MEYER, Edgard Bhatt [phone] Reason for Visit and Chief Complaint The Chief Complaint is: neck pain Problems Includes: Problems addressed during this encounter and other active Problems Current Visit Onset Date Resolved Date Provider Viral hurtado Status Neck Pain 06/05/2024 Edgard Ko MD Active Last Documented On 10:52AM ; [facility], [facility] Plan of Treatment - Patient screened for future fall risk: documentation of any fall with injury in past year - Last Documented On 06/06/2024 12:51PM ; [facility], [facility] Fall Risk Assessment: This patient has been [...] with the patient. - Last Documented On 06/06/2024 12:51PM ; [facility], [facility] Instructions to patient Lose weight Last Documented On 10:54AM ; [facility], [facility] Assessments Includes: Assessments from this encounter Findings - Overweight - Last Documented On 06/06/2024 12:51PM ; [facility], [facility] Instructions Includes: Instructions from this encounter Instructions to patient Lose weight Last Documented On 10:54AM ; [facility], [facility] Medical Equipment - Implanted Devices Includes: Current Devices No Medical Equipment Recorded Medications Includes: Medications discussed during this encounter and other current Medications Current Medications (continue as prescribed) Omeprazole 40 MG Oral Capsule Delayed Release 06/06/19 25 Provider: Diagnosis: Last Documented On 5 11:42AM By Rivas Powell ; [facility], [facility] Piroxicam 20 MG Oral Capsule 06/03/2024 Provider: DK COOL Diagnosis: Last Documented On 5 10:52AM By Nikolay Vivar ; [facility], [facility] Myrbetriq 25 MG Oral Tablet Extended Release 24 Hour 05/22/2024 Provider: DK COOL Diagnosis: Last Documented On 5 10:52AM By Nikolay Vivar ; [facility], [facility] Finasteride 5 MG Oral Tablet 05/21/2024 Provider: OLIVA HOFFMAN Diagnosis: Last Documented On 5 10:53AM By Nikolay Vivar ; [facility], [facility] traZODone HCl 50 MG Oral Tablet 05/21/2024 Provider: DK COOL Diagnosis: Last Documented On 5 10:53AM By Nikolay Vivar ; [facility], [facility] traMADol HCl 50 MG Oral Tablet 05/20/2024 Provider: DK COOL Diagnosis: Last Documented On 5 10:53AM By Nikolay Vivar ; [facility], [facility] Pregabalin 225 MG Oral Capsule 05/14/2024 Provider: DK COOL Diagnosis: Last Documented On 5 10:53AM By Nikolay Vivar ; [facility], [facility] Azelastine-Fluticasone 137-5 0 MCG/ACT Nasal Suspension 05/12/2024 Provider: DK COOL Diagnosis: Last Documented On 5 10:53AM By Nikolay Vivar ; [facility], [facility] Losartan Potassium 100 MG Oral Tablet 04/03/2024 Pro vider: Diagnosis: Last Documented On 5 10:53AM By Nikolay Vivar ; [facility], [facility] Medications Administered Includes: Administered Medications from this encounter No Administered Medications Recorded Vital Signs Includes: Vital Signs from this encounter Vital Name 06/05/2024 11:19A Height (in) 76 Weight (lb) 260 Body Mass Index 31.6 Body Surface Area 2.5 Pain Level 4 Last Documented: On 06/05/2024 11:19A M ; [facility], [facility] Results Includes: Results discussed during this encounter No Results Recorded For Specified Dates History of Present Illness Includes: History of Present Illness from this encounter HPI Haile Clancy is a 73 year old [...] More - - Review of medications documented Social History Description Last Updated Caffeine use 06/05/2024 Last Documented On 5 12:51PM ; [facility], [facility] Exercising regularly 06/05/2024 Last Documented On 12:51PM ; [facility], [facility] No recent change in diet 06/05/2024 Last Documented On 12:51PM ; [facility], [facility] Not a current smoker. 06/05/2024 Last Documented On 5 12:51PM ; [facility] Not using alcohol 06/05/2024 Last Documented On 5 12:51PM ; [facility], [facility] Not using drugs 06/05/2024 Last Documented On 12:51PM ; [facility], [facility] Smoking Status Unknown Procedures and Surgical History Includes: Procedures from this encounter Procedures Code Diagnosis Performing Provider Service L ocation Service Date CT scan [id number] Last Documented On 5 10:54AM ; [facility], [facility] an MRI was performed [id number] Last Documented On 5 10:54AM ; [facility], [facility] Surgical History Last Updated History of History of Gallbladder 2024 Last Documented On 5 12:51PM ; [facility], [facility] History of Previous Fractures 06/05/2024 Last Documented On 5 12:51PM ; [facility], [facility] History of total hip replacement 025 Last Documented On 5 12:51PM ; [facility], [facility] Medical History Includes: Medical History addressed during this encounter Description Last Updated History of arthritis 06/05/2024 Last Documented On 5 12:51PM ; [facility], [facility] History of asthma 06/05/2024 Last Documented On 5 12:51PM ; [facility] History of Hypertension 06/05/2024 Last Documented On 5 12:51PM ; [facility], [facility] Family History Includes: Family History addressed during this encounter Description Last Updated Family history of cancer 06/05/2024 Last Documented On 5 12:51PM ; [facility] Family history of heart disease 06/06/19 Last Documented On 5 12:51PM ; [facility] Family history of rheumatoid arthritis 0 06/05/2024 Last Documented On 5 12:51PM ; [facility] No significant family history 06/05/2024 Last Documented On 5 12:51PM ; [facility] Review of Systems Includes: Review of Systems [...] Location Date Check-In Time Check-Out Time Diagnosis Physician Specified Edgard [facility] 06/06/19 25 10:31AM 11:08AM Overweight Insurance Includes: Active Insurance Policies Plan Name Member ID Group # Subscriber Relationship Effect meir Dates 1 - MEDICARE [id number] Haile Clancy Rekha f 2 - [facility] [id number] Haile Clancy Self Clinical Notes Includes: Clinical Notes from this encounter * Progress note Date Encounter Last Documented by 06/05/2024 Physician Specified Last liz kelley on 06/06/2024; 12:51 PM, Edgard Ko MD; [facility], [facility] Active Problems & Conditions - Neck Pain [...]
--- NOTE | 2024-06-30 14:00 | CT_ITS ---
FINAL REPORT TECHNIQUE: Axial CT images through the paranasal sinuses were obtained. Multiplanar reconstructions were performed in the sagittal and coronal planes. This study was performed with techniques to keep radiation doses as low as reasonably achievable (ALARA). Individualized dose reduction techniques using automated exposure control or adjustment of mA and/or kV according to the patient's size were employed. CLINICAL HISTORY: .chronic sinusitis COMPARISON: None FINDINGS: SINUS CT: There is minimal mucoperiosteal thickening in the maxillary sinuses bilaterally. The paranasal sinuses are otherwise well aerated. The ostiomeatal complexes are patent bilaterally. There is no fracture. There are no air-fluid levels. IMPRESSION: Minimal mucoperiosteal thickening in the maxillary sinuses bilaterally, otherwise unremarkable sinus CT. Reviewed, Interpreted and Dictated by Fredi Blair MD Transcribed by Melony Marmolejo Authenticated and [facility]
== END 2024-06-30 23:59 | disposition home or self-care (01) ==
LOC: RAD 13:37
PROVIDERS: PCP Nurse Practitioner Family; Visit Provider Nurse Practitioner
DX: J32.9 Chronic sinusitis, unspecified (principal)
CPT/HCPCS: 70486

== ENCOUNTER 2024-07-01 10:01 | Outpatient (CLI) | payer MEDICARE, MEDICAID, SELFPAY ==
--- NOTE | 2024-07-01 10:03 | XR_ITS ---
FINAL REPORT CLINICAL HISTORY: foot/joint pain x 1 week FINDINGS: RIGHT FOOT Two views were obtained. There is no fracture or dislocation. The joint spaces appear normal. There is hammertoe deformity involving the 2nd through 5th digits. There is a small density in the dorsal distal aspect of the second digit measuring 2 mm consistent with a small radiopaque foreign body. IMPRESSION: Foreign body as above. Reviewed, Interpreted and Dictated by Fredi Blair MD Transcribed by Rae Barber Authenticated and [facility]
--- OUTSIDE RECORDS SUMMARY | 2024-07-01 10:03 | XMS_ITS ---
Care Plan - [facility], [facility] Created on: July 01, 2024 Haile Clancy : [id number] Sex: Male Author Organization [facility] Address [address] [place] [address] Phone Care Team Providers Care Chicken Cutter Name Role Phone Maikel MEYER, Edgard Thomason Unavailable [phone]
--- OUTSIDE RECORDS SUMMARY | 2024-07-01 10:03 | XMS_ITS ---
Author Organization [facility] , [facility] Address [address] [place] [address] Phone Care Team Providers Care Inspector Pawnshop Detail Name Role Phone Edgard Ko MD [phone] Problems Includes: Active, inactive, and resolved Problems All Visits Onset Date Resolved Date Provider Condition S tatus Neck Pain 06/05/2024 Edgard Ko MD Active Last Documented On 5 10:52AM ; [facility] Plan of Treatment Findings Encounter Date Patient screened for future fall risk: documentation of any fall with injury in past year Follow Up with Edgard Ko MD 06/26/2024 Last Documented On 5 3:20PM ; [facility] Patient screened for future fall risk: documentation of any fall with injury in past year Physician Specified with Edgard Ko MD 06/05/2024 Last Documented On 5 12:51PM ; [facility] Instructions to patient Lose weight Last Documented On 5 2:16PM ; [facility] Lose weight Last Documented On 5 10:54AM ; [facility] Assessments Includes: Assessments for all patient encounters Findings Encounter Date Overweight Follow Up with Edgard Ko MD 06/26/2024 Last Documented On 5 3:20PM ; [facility] Overweight Physician Specified with Edgard Ko MD 06/05/2024 Last Documented On 5 12:51PM ; [facility] Instructions Includes: Instructions for all patient encounters Instructions to patient Lose weight Last Documented On 5 2:16PM ; [facility] Lose weight Last Documented On 5 10:54AM ; [facility] Equipment - Implanted Devices Includes: Current and historical Devices No Medical Equipment Recorded Medications Includes: Current and historical Medications Current Medications (continue as prescribed) Omeprazole 40 MG Oral Capsule Delayed Release 06/06/19 Provider: Diagnosis: Last Documented On 11:42AM By Rivas Powell ; [facility] Piroxicam 20 MG Oral Capsule 06/03/2024 Provider: DK COOL Diagnosis: Last Documented On 10:52AM By Nikolay Vivar ; [facility] Myrbetriq 25 MG Oral Tablet Extended Release 24 Hour 05/22/2024 Provider: DK COOL Diagnosis: Last Documented On 10:52AM By Nikolay Vivar ; [facility] Finasteride 5 MG Oral Tablet 05/21/2024 Provider: OLIVA HOFFMAN Diagnosis: Last Documented On 10:53AM By Nikolay Vivar ; [facility] traZODone HCl 50 MG Oral Tablet 05/21/2024 Provider: DK COOL Diagnosis: Last Documented On 5 10:53AM By Nikolay Vivar ; [facility] traMADol HCl 50 MG Oral Tablet 05/20/2024 Provider: DK COOL Diagnosis: Last Documented On 5 10:53AM By Nikolay Vivar ; [facility] Pregabalin 225 MG Oral Capsule 05/14/2024 Provider: DK COOL Diagnosis: Last Documented On 10:53AM By Nikolay Vivar ; [facility] Azelastine-Fluticasone 137-5 0 MCG/ACT Nasal Suspension 05/12/2024 Provider: DK COOL Diagnosis: Last Documented On 5 10:53AM By Nikolay Vivar ; [facility] Losartan Potassium 100 MG Oral Tablet 04/03/2024 Pro vider: Diagnosis: Last Documented On 10:53AM By Nikolay Vivar ; [facility] Medications Administered Includes: Administered Medications in patient's chart No Administered Medications Recorded Vital Signs Includes: Vital Signs from 07/02/2023 through 07/01/2024 Vital Name 06/26/2024 03:19P 06/05/2024 11: 19A Height (in) 76 76 Weight (lb) 260 260 Body Mass Index 31.6 31.6 Body Surface Area 2.5 2.5 Pain Level 5 4 Last Documented: On 06/26/2024 3:20PM ; [facility] On 06/05/2024 11:19AM ; [facility] Results Includes: Results from 07/02/2023 through 07/01/2024 No Results Recorded For Specified Dates History of Present Illness History of Present Illness not supported for this document type No History of Present Illness Recorded Social History Description Last Updated Caffeine use 06/05/2024 Last Documented On 12:51PM ; [facility] Exercising regularly 06/05/2024 Last Documented On 12:51PM ; [facility] No recent change in diet 06/05/2024 Last Documented On 12:51PM ; [facility] Not a current smoker. 06/05/2024 Last Documented On 5 12:51PM ; [facility] Not using alcohol 06/05/2024 Last Documented On 12:51PM ; [facility] Not using drugs 06/05/2024 Last Documented On 12:51PM ; [facility] Smoking Status Unknown Procedures and Surgical History Includes: Procedures from 07/02/2023 through 07/01/2024 Procedures Code Diagnosis Performing Provider Service Location Service Date DRAIN/INJECT, JOINT/BURSA (Bilateral Procedure) Primary osteoarthritis, right shoulder, Primary osteoarthritis, left shoulder Edgard Ko MD [facility] 06/26/2024 Last Documented On 5 3:28PM ; [facility] Injection, betamethasone acetate 6mg per cc and betamethason [id number] Primary osteoarthritis, right shoulder, Primary osteoarthritis, left shoulder Edgard Ko MD [facility] 06/26/2024 Last Documented On 5 3:28PM ; [facility] X-RAY EXAM OF SHOULDER 2-3 VIEWS (Bilateral Procedure) 67409 Primary osteoarthritis, right shoulder, Primary osteoarthritis, left shoulder Edgard Ko MD [facility] 06/26/2024 Last Documented On 5 3:28PM ; [facility] Nerve Conduction Studies; 9-10 studies 51754 Carpal tunnel syndrome, bilateral upper limbs Edgard Ko MD [facility] 06/23/2024 Last Documented On 5 10:40AM ; [facility] Needle EMG, complete, five or more muscles 52355 Carpal tunnel syndrome, bilateral upper limbs Edgard Ko MD [facility] 06/23/2024 Last Documented On 5 10:40AM ; [facility] Surgical History Last Updated History of History of Gallbladder 2024 Last Documented On 5 12:51PM ; [facility] History of Previous Fractures 06/05/2024 Last Documented On 5 12:51PM ; [facility] History of total hip replacement 025 Last Documented On 5 12:51PM ; [facility] Medical History Includes: Medical History in patient's chart Description Last Updated History of arthritis 06/05/2024 Last Documented On 5 12:51PM ; [facility] History of asthma 06/05/2024 Last Documented On 5 12:51PM ; [facility] History of Hypertension 06/05/2024 Last Documented On 5 12:51PM ; [facility] Family History Includes: Family History in patient's chart Description Last Updated Family history of cancer 06/05/2024 Last Documented On 5 12:51PM ; [facility] Family history of heart disease 06/06/19 Last Documented On 5 12:51PM ; [facility] Family history of rheumatoid arthritis 0 06/05/2024 Last Documented On 5 12:51PM ; [facility] No significant family history 06/05/2024 Last Documented On 12:51PM ; [facility] Review of Systems Review of Systems not supported for this document type No Review of Systems Recorded Mental Status Description No anxiety Functional Status No Functional Status Recorded Physical Exam Physical Exam not supported for this document type No Physical Exam Recorded Allergies Includes: Active, inactive, and resolved Allergies No Known Allergies Encounters Includes: Encounters from 07/02/2023 through 07/01/2024 Encounter Provider Location Date Check-In Time Check-Out Time Diagnosis Follow Up Edgard Ko MD [facility] 06/27/19 2:11PM 3:06PM Overweight EMG [facility] 06/24/19 4:47PM 06/05/2024 11:59PM Physician Specified Edgard oK MD [facility] 06/06/19 10:31AM 11:08AM Overweight Insurance Includes: Active Insurance Policies Plan Name Member ID Group # Subscriber Relationship Effect meir Dates 1 - [employer] MED[employer]ARE [id number] Haile Clancy Rekha f 2 - [facility] For [facility] [id number] Haile Clancy Self Clinical Notes Includes: Signed Clinical Notes starting from 02/16/2022 * Progress note Date Encounter Last Documented by 06/05/2024 Physician Specified Last liz kelley on 06/06/2024; 12:51 PM, Edgard Ko MD; [facility], [facility] Active Problems & Conditions - Neck Pain [...]
--- OUTSIDE RECORDS SUMMARY | 2024-07-01 10:03 | XMS_ITS | Clinical Summary ---
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 Name Role Phone Maikel MEYER, Edgard Bhatt [phone] Reason for Visit and Chief Complaint EMG Problems Includes: Problems addressed during this encounter and other active Problems All Visits Onset Date Resolved Date Provider Condition S tatus Neck Pain 06/05/2024 Edgard Ko MD Active Last Documented On 10:52AM ; [facility], [facility] Plan of Treatment No Plan of [...] On 5 11:42AM By Rivas Powell ; [facility], [facility] Piroxicam 20 MG Oral Capsule 06/03/2024 Provider: DK COOL Diagnosis: Last Documented On 5 10:52AM By Nikolay Vivar ; [facility], [facility] Myrbetriq 25 MG Oral Tablet Extended Release 24 Hour 05/22/2024 Provider: DK COOL Diagnosis: Last Documented On 5 10:52AM By Nikolay Vivar ; [facility], [facility] Finasteride 5 MG Oral Tablet 05/21/2024 Provider: OLIVA HOFFMAN Diagnosis: Last Documented On 5 10:53AM By Nikolay Vivar ; [facility], [facility] traZODone HCl 50 MG Oral Tablet 05/21/2024 Provider: DK COOL Diagnosis: Last Documented On 5 10:53AM By Nikolay Vivar ; [facility], [facility] traMADol HCl 50 MG Oral Tablet 05/20/2024 Provider: DK COOL Diagnosis: Last Documented On 5 10:53AM By Nikolay Vivar ; [facility] Pregabalin 225 MG Oral Capsule 05/14/2024 Provider: DK COOL Diagnosis: Last Documented On 5 10:53AM By Nikolay Vivar ; [facility] Azelastine-Fluticasone 137-5 0 MCG/ACT Nasal Suspension 05/12/2024 Provider: DK COOL Diagnosis: Last Documented On 5 10:53AM By Nikolay Vivar ; [facility] Losartan Potassium 100 MG Oral Tablet 04/03/2024 Pro vider: Diagnosis: Last Documented On 5 10:53AM By Nikolay Vivar ; [facility] Medications Administered Includes: Administered Medications from [...] Service Date Nerve Conduction Studies; 9-10 studies [id number] Carpal tunnel syndrome, bilateral upper limbs Edgard Ko MD [facility] 06/23/2024 Last Documented On 5 10:40AM ; [facility] Needle EMG, complete, five or more muscles 81574 Carpal tunnel syndrome, bilateral upper limbs Edgard Ko MD [facility] 06/23/2024 Last Documented On 5 10:40AM ; [facility] Medical History Includes: Medical History addressed [...] Date Check-In Time Check-Out Time Diagnosis EMG [facility] 06/23/2024 4:47PM 11:59PM Insurance Includes: Active Insurance Policies Plan Name Member ID Group # Subscriber Relationship Effect meir Dates 1 - [employer] MED[employer]ARE [id number] Haile Aston Rekha f 2 - [facility] [id number] Haile Clancy Self Clinical Notes Includes: Clinical Notes from this encounter No Clinical Notes Recorded
[2024-07-01 14:26] LABS: Basophils % 0.5 % (0.1-2.0); Eosinophils # 0.4 Kmm3 (0.0-0.4); Eosinophils % 4.3 % (0.1-12.0); Hematocrit 43.2 % (42.0-52.0); Hemoglobin 14.2 g/dL (14.1-18.0); Lymphocytes # 1.8 K/mm3 (0.7-4.5); Lymphocytes % 21.2 % (10-50); Mean Corpuscular HGB Conc 32.9 g/dL (31.8-35.4); Mean Corpuscular Hemoglobin 30.1 pg (27.0-31.2); Mean Corpuscular Volume 91.5 fl (80-94); Mean Platelet Volume 10.7 fl (7.4-10.4); Monocytes # 0.6 K/mm3 (0.1-1.0); Monocytes % 7.7 % (1.7-9.3); Neutrophils # 5.4 K/mm3 (1.8-7.8); Neutrophils % 64.6 % (37.0-80.0); Nucleated Red Blood Cells # 0 10^3/uL; Nucleated Red Blood Cells % 0 %; Platelet Count 213 K/mm3 (142-424); Red Blood Count 4.72 M/mm3 (4.60-6.20); Red Cell Distribution Width 13.6 % (11.5-17.5); Red Cell Distribution Width-SD 46.1 fL; White Blood Count 8.3 K/mm3 (4.8-10.8)
[2024-07-01 14:47] LABS: Alanine Aminotransferase 36 U/L (12-78); Albumin Level 4.1 g/dl (3.5-5.0); Albumin/Globulin Ratio 1.6 (1.1-1.8); Alkaline Phosphatase 112 U/L (38-126); Aspartate Amino Transferase 28 U/L (17-59); Bilirubin,Total 0.5 mg/dl (0.2-1.3); Blood Urea Nitrogen 28 mg/dl (9-20); Calcium 8.9 mg/dl (8.4-10.2); Carbon Dioxide 23 mmol/L (22.0-30.0); Chloride 109 mmol/L (98-107); Estimated Glomerular Filt Rate 65 ml/min (>60); GFR (African American) 79 ML/MIN (>60); Globulin 2.5 g/dL (1.3-3.2); Glucose 82 mg/dl (74-100); Sodium 139 mmol/L (136-145); Total Protein,Serum 6.6 g/dl (6.3-8.2)
[2024-07-01 14:53] LABS: C-Reactive Protein 2.5 mg/L (0-4)
[2024-07-01 15:07] LABS: Hemoglobin A1C 5.1 % (4.0-6.0)
== END 2024-07-01 23:59 | disposition home or self-care (01) ==
LOC: RAD 10:02
PROVIDERS: PCP Internal Medicine; Visit Provider Internal Medicine
DX: M79.671 Pain in right foot (principal); M25.50 Pain in unspecified joint; R23.3 Spontaneous ecchymoses; Z13.1 Encounter for screening for diabetes mellitus
CPT/HCPCS: 73620; 80053; 83036; 85025; 86140

== ENCOUNTER 2024-07-20 08:12 | Emergency (ER) | payer MEDICARE, MEDICAID, SELFPAY ==
--- NOTE | 2024-07-20 08:17 | ECG_ITS ---
APPROVED REPORT Exam: Resting ECG HR:70 bpm ECG Measurements Heart Rate 70 AXES WI 272 P 258 QRSd 127 QRS -24 QT 367 T 72 QTc 388 Conclusion ELECTRONIC ATRIAL PACEMAKER BORDERLINE LEFT AXIS DEVIATION [QRS AXIS < -20] LEFT VENTRICULAR HYPERTROPHY AND ST-T CHANGE [VOLTAGE CRITERIA PLUS ST/T ABNORMALITY] ABNORMAL ECG UNCONFIRMED REPORT Electronically signed by : Emeterio Vallejo, 07/20/2024 16:05:16
[2024-07-20 08:20] VITALS: BP 149/89; PULSE 69; RESP 24; TEMP 36.9; O2SAT 97; BMI 32.5
--- NOTE | 2024-07-20 08:27 | XR_ITS ---
PROCEDURE INFORMATION: Exam: XR Chest Exam date and time: 07/20/2024 8:34 AM Age: 73 years old Clinical indication: Shortness of breath; Additional info: SOA TECHNIQUE: Imaging protocol: Radiologic exam of the chest. Views: 1 view. COMPARISON: CR XR CHEST PORTABLE 07/12/2021 3:14 AM FINDINGS: Lungs: Hyperinflated lungs. No lobar consolidation. Pleural spaces: No pleural effusion. Heart/Mediastinum: Unremarkable. No cardiomegaly. Bones/joints: Degenerative changes of both shoulder IMPRESSION: Hyperinflated lungs. No acute process
[2024-07-20 08:31] VITALS: BP 118/86; PULSE 69; RESP 19; O2SAT 96
[2024-07-20 08:33] LABS: Coronavirus 19, PCR Not Detected (NotDetected); Influenza A, PCR Not Detected (NotDetected); Influenza B, PCR Not Detected (NotDetected)
[2024-07-20 08:36] LABS: Basophils % 0.4 % (0.1-2.0); Eosinophils # 0.3 Kmm3 (0.0-0.4); Hematocrit 40.4 % (42.0-52.0); Hemoglobin 13.5 g/dL (14.1-18.0); Immature Granulocytes # 0.18 10^3uL; Immature Granulocytes % 2.2 %; Lymphocytes # 1.9 K/mm3 (0.7-4.5); Lymphocytes % 22.7 % (10-50); Mean Corpuscular HGB Conc 33.4 g/dL (31.8-35.4); Mean Corpuscular Hemoglobin 30.9 pg (27.0-31.2); Mean Corpuscular Volume 92.4 fl (80-94); Mean Platelet Volume 9.7 fl (7.4-10.4); Monocytes # 0.5 K/mm3 (0.1-1.0); Monocytes % 6.4 % (1.7-9.3); Neutrophils # 5.4 K/mm3 (1.8-7.8); Neutrophils % 65.3 % (37.0-80.0); Nucleated Red Blood Cells # 0 10^3/uL; Nucleated Red Blood Cells % 0 %; Platelet Count 192 K/mm3 (142-424); Red Blood Count 4.37 M/mm3 (4.60-6.20); Red Cell Distribution Width 14.5 % (11.5-17.5); Red Cell Distribution Width-SD 49.2 fL; White Blood Count 8.2 K/mm3 (4.8-10.8)
[2024-07-20 08:37] LABS: Lactate Venous 1.8 mmol/L (0.4-2.0); VBG Base Excess -1.5 mmol/L (-2.4-2.3); VBG HCO3 22.9 mmol/L (23-30); VBG Oxygen Saturation 87.7 % (50-70); VBG PCO2 35.5 mmol/L (35-51); VBG PH 7.43 mmol/L (7.31-7.41); VBG PO2 52.6 mmol/L (28-40)
[2024-07-20 08:38] LABS: Albumin Level 3.9 g/dl (3.5-5.0); Chloride 107 mmol/L (98-107)
[2024-07-20 08:39] LABS: Sodium 136 mmol/L (136-145)
[2024-07-20 08:41] LABS: Blood Urea Nitrogen 26 mg/dl (9-20); Creatinine Clearance Estimated 106 mL/min (50-200); Estimated Glomerular Filt Rate 73 ml/min (>60); GFR (African American) 88 ML/MIN (>60)
[2024-07-20 08:42] LABS: Alanine Aminotransferase 36 U/L (12-78); Albumin/Globulin Ratio 1.4 (1.1-1.8); Alkaline Phosphatase 119 U/L (38-126); Aspartate Amino Transferase 32 U/L (17-59); Bilirubin,Total 0.6 mg/dl (0.2-1.3); Calcium 8.8 mg/dl (8.4-10.2); Carbon Dioxide 25 mmol/L (22.0-30.0); Globulin 2.7 g/dL (1.3-3.2); Glucose 91 mg/dl (74-100); Total Protein,Serum 6.6 g/dl (6.3-8.2)
--- NOTE | 2024-07-20 08:57 | CT_ITS ---
PROCEDURE INFORMATION: Exam: CTA Chest With Contrast Exam date and time: 07/20/2024 9:35 AM Age: 73 years old Clinical indication: Dyspnea and shortness of breath; Additional info: Dyspnea, abnornal lung US TECHNIQUE: Imaging protocol: Computed tomographic angiography of the chest with contrast. Exam focused on the arteries. 3D rendering (Not supervised by radiologist): MIP and/or 3D reconstructed images were created by the technologist. Radiation optimization: All CT scans at this facility use at least one of these dose optimization techniques: automated exposure control; mA and/or kV adjustment per patient size (includes targeted exams where dose is matched to clinical indication); or iterative reconstruction. Contrast material: ISOVUE; Contrast volume: 70 ml; Contrast route: INTRAVENOUS (IV); COMPARISON: CR XR CHEST PORTABLE 07/20/2024 8:34 AM FINDINGS: Pulmonary arteries: Normal. No pulmonary emboli. Aorta: Unremarkable. No aortic aneurysm. No aortic dissection. Lungs: Unremarkable. No consolidation. No masses. Pleural spaces: Unremarkable. No pneumothorax. No pleural effusion. Heart: Unremarkable. No cardiomegaly. No pericardial effusion. Coronary artery calcification Lymph nodes: Unremarkable. No enlarged lymph nodes. Bones/joints: Unremarkable. No acute fracture. Soft tissues: Unremarkable. IMPRESSION: No acute findings.
[2024-07-20 09:00] VITALS: BP 121/82; PULSE 65; RESP 15; O2SAT 95
--- NOTE | 2024-07-20 09:00 | [facility].EDCP ---
Discharge Plan Disposition Patient Disposition: Home, Self-Care Prescriptions Prescriptions: New benzonatate 100 mg capsule 100 mg PO TID PRN (Reason: cough) 5 Days Qty: 20 0RF qxgxzrvikaihlfu-sceyvsrmm-OA 2-30-10 mg/5 mL syrup 5 ml PO Q6H PRN (Reason: cold symptoms) 7 Days Qty: 118 0RF No Action Linzess 145 mcg capsule 145 mcg PO DAILY melatonin 5 mg tablet 5 mg PO HS PRN (Reason: Insomnia) tramadol 50 mg tablet 50 mg PO Q8H PRN (Reason: pain) 30 Days Qty: 90 0RF mirabegron [Myrbetriq] 25 mg tablet extended release 24 hr 25 mg PO DAILY Qty: 90 3RF finasteride 5 mg tablet 5 mg PO DAILY buspirone 5 mg tablet 5 mg PO BID Qty: 60 2RF azelastine-fluticasone 137-50 mcg/spray spray,non-aerosol 1 spray intranasal BID Qty: 23 2RF Rx Instructions: administer into each nostril ipratropium-albuterol 0.5 mg-3 mg(2.5 mg base)/3 mL solution for nebulization 3 ml inhalation Q4-6H PRN (Reason: shortness of breath) Qty: 90 2RF levofloxacin 500 mg tablet 500 mg PO DAILY 10 Days Qty: 10 0RF prednisone 20 mg tablet 20 mg PO BID 5 Days Qty: 10 0RF trazodone 50 mg tablet 100 mg PO HS MDD 100 mg Qty: 180 3RF Rx Instructions: 100 mg po qhs no later than 9:00 pm montelukast 10 mg tablet 10 mg PO DAILY 90 Days Qty: 90 3RF losartan 100 mg tablet See Rx Instructions .ROUTE .COMPLEX Qty: 90 0RF Dose Instruction: TAKE 1 TABLET BY MOUTH ONCE DAILY FOR HIGH BLOOD PRESSURE Rx Instructions: TAKE 1 TABLET BY MOUTH ONCE DAILY FOR HIGH BLOOD PRESSURE pregabalin 225 mg capsule 225 mg PO BID 30 Days Qty: 60 2RF piroxicam 20 mg capsule See Rx Instructions .ROUTE .COMPLEX Qty: 90 0RF Dose Instruction: Take 1 capsule by mouth once daily Rx Instructions: Take 1 capsule by mouth once daily omeprazole 40 mg capsule,delayed release(DR/EC) See Rx Instructions .ROUTE .COMPLEX Qty: 90 0RF Dose Instruction: TAKE 1 CAPSULE BY MOUTH ONCE DAILY FOR GERD Rx Instructions: TAKE 1 CAPSULE BY MOUTH ONCE DAILY FOR GERD potassium chloride 10 mEq tablet extended release See Rx Instructions .ROUTE .COMPLEX Qty: 90 0RF Dose Instruction: TAKE 1 TABLET BY MOUTH ONCE DAILY FOR SUPPLEMENT FOR 90 DAYS Rx Instructions: TAKE 1 TABLET BY MOUTH ONCE DAILY FOR SUPPLEMENT FOR 90 DAYS fluticasone propion-salmeterol [Advair HFA] 115-21 mcg/actuation HFA aerosol inhaler See Rx Instructions .ROUTE .COMPLEX Qty: 12 0RF Dose Instruction: Inhale 2 puffs by mouth twice daily Rx Instructions: Inhale 2 puffs by mouth twice daily vitamin D3-vitamin K2 1 EACH tablet,disintegrating 1 each PO DAILY Referrals Follow up/Referrals: Flex Ackerman DO [Primary Care Provider] - See instructions Flex Carrillo MD [Staff Physician] - See instructions Activity Restrictions/Add. Instructions Additional Instructions/Restrictions: No evidence of an acute cardiopulmonary emergency you may continue your symptomatic medications and your antibiotic per your primary care doctor I have added to cough medicines onto your symptoms. I do advise that you follow-up closely with cardiology to have a further more extensive evaluation of your heart. Clinical Impressions Clinical Impression: Dyspnea, Bronchitis Print Language Print Language: Zambian Discharge ED Provider: Moody Vallejo HPI General Chief Complaint: Shortness of Breath/Dyspnea Stated Complaint: cough, congestion, SOA Time Seen by Provider: 07/20/24 08:23 Mode of Arrival: Ambulatory Source of Information: Patient Description of Symptoms (Recalled from ER Triage Doc. by RN): reports increased shortness of breath for a week. has asthmadenies chest pain History of Present Illness HPI narrative: Patient is a 73-year-old gentleman who presents today with dyspnea. States this began within the last week. Denies any chest pain or chest pressure that preceded this but did have a cough. Went to his primary care doctor and was prescribed Levaquin as well as a steroid without any improvement in symptoms no fevers or chills. States he has had increased lower extremity swelling over the last several months and orthopnea no history of heart failure that he is aware of. Related Data Home Medications ?Medication ?Instructions ?Recorded ?Confirmed vitamin D3 25 mcg (1,000 unit)-vit 1 each PO DAILY Supplement 03/20/17 07/16/24 K2 90 mcg disintegrating tablet finasteride 5 mg tablet 5 mg PO DAILY prostate 03/02/21 07/16/24 linaclotide 145 mcg capsule 145 mcg PO DAILY . 07/27/21 07/16/24 (Linzess) melatonin 5 mg tablet 5 mg PO HS PRN Insomnia 07/27/21 07/16/24 Previous Rx's ?Medication ?Instructions ?Recorded buspirone 5 mg tablet 5 mg PO BID #60 tabs 09/18/23 trazodone 50 mg tablet 100 mg (2 x 50 mg) PO HS Insomnia 02/19/24 #180 tabs montelukast 10 mg tablet 10 mg PO DAILY 90 days #90 tabs 03/11/24 losartan 100 mg tablet See Rx Instructions .Route 04/22/24 .COMPLEX #90 tabs pregabalin 225 mg capsule 225 mg PO BID NEUROPATHY 30 days 05/13/24 #60 caps mirabegron 25 mg tablet,extended 25 mg PO DAILY #90 tabs 05/20/24 release 24 hr (Myrbetriq) tramadol 50 mg tablet 50 mg PO Q8H PRN pain 30 days #90 05/20/24 tabs piroxicam 20 mg capsule See Rx Instructions .Route 06/03/24 .COMPLEX #90 caps omeprazole 40 mg capsule,delayed See Rx Instructions .Route 06/18/24 release .COMPLEX #90 caps potassium chloride 10 mEq See Rx Instructions .Route 06/18/24 tablet,extended release .COMPLEX #90 tabs fluticasone propionate 115 See Rx Instructions .Route 07/07/24 mcg-salmeterol 21 mcg/actuation .COMPLEX #12 grams HFA inhaler (Advair HFA) ipratropium 0.5 mg-albuterol 3 mg 3 ml inhalation Q4-6H PRN 07/14/24 (2.5 mg base)/3 mL nebulization shortness of breath #90 mL soln levofloxacin 500 mg tablet 500 mg PO DAILY 10 days #10 tabs 07/14/24 prednisone 20 mg tablet 20 mg PO BID 5 days #10 tabs 07/14/24 azelastine 137 mcg-fluticasone 50 1 spray intranasal BID #23 grams 07/16/24 mcg/spray nasal spray benzonatate 100 mg capsule 100 mg PO TID PRN cough 5 days #20 07/20/24 caps mwksebtupscnxet-crgvhohtimcckwq-FX 5 ml PO Q6H PRN cold symptoms 7 07/20/24 2 mg-30 mg-10 mg/5 mL oral syrup days #118 mL Allergies Allergy/AdvReac Type Severity Reaction Status Date / Time No Known Allergies Allergy Verified 07/16/24 13:34 [facility] Disclaimer: The information contained in this section may have been updated after the patient was seen, as this information can be updated by other users. Medical History (Updated 07/20/24 @ 10:43 by Moody Vallejo MD) Nasal congestion Right foot pain Chronic sinusitis Hearing loss Cough variant asthma Asthma Allergic rhinitis Wheezing without diagnosis of asthma Family history of asthma Stopped smoking with greater than 15 pack year history Dyspnea on exertion Systolic ejection murmur Arthritis Gout Sleep apnea COPD (chronic obstructive pulmonary disease) History of back pain History of gastroesophageal reflux (GERD) Gallbladder disease Allergies Hypertension Insomnia Surgical History History of back surgery History of knee surgery History of hip replacement, total History of carpal tunnel surgery History of cholecystectomy Family History Other Cancer Coronary artery disease Hypertension Stroke Social History Smoking Status: Never smoker years smoked: 6 how long ago did patient quit smoking: QUIT 40 YEARS AGO second hand exposure: No alcohol intake: former substance use type: denies use current occupational status: retired Travel in the last 8 weeks?: None household members: spouse housing: house current occupational exposures/hazards: No caffeine: Yes Have you lived/traveled outside [place] in past 30 days?: No Contact w/someone who lives/traveled outside [place] past 30 days?: No Exposure to someone with infectious disease in past 14 days?: No Do you have a fever (greater than 100.4 F or 38 C)?: No Have you tested positive for COVID-19?: No Exposed to someone with COVID-19 in past 14 days?: No Do you have a sore throat?: No Do you have a cough?: Yes Do you have any weakness?: No Do you have any diarrhea?: No Are you experiencing any unusual bleeding?: No Do you have any muscle aches/pain?: No Do you have any abdominal pain?: No Are you experiencing loss of taste or smell?: No Other Medical History Have you received the Flu Vaccine for this season: Yes Have you received the Pneumonia Vaccine: Yes ROS Obtained: Yes All systems reviewed & no additional complaints except as documented Physical Exam General General appearance: alert Respiratory Respiratory exam: Present normal lung sounds bilaterally; Absent respiratory distress Cardiovascular Cardiovascular exam: Present regular rate and normal rhythm Neurological Exam Neurological exam: Present alert and oriented X3 HEART Score HEART Score HEART Score assessment performed?: Yes History (anamnesis): Slightly suspicious ECG: Non-specific disturbance Age: >65 years Risk factors: 1-2 risk factors Troponin: </= normal limit HEART Score: 4 Procedures Miscellaneous Procedure Procedure Performed: Limited cardiac ultrasound Indication: Dyspnea Identified structures: The heart was visualized in the parasternal long axis, parastenal short axis, apical four chamber and subxyphiod views. The IVC was visualized in the short axis and long axis at its entry into the right atrium. Findings: Normal LVEF no evidence of pericardial effusion or severe right heart strain was unable to visualize subxiphoid and IVC views secondary to bowel gas Impression: Unremarkable limited ultrasound of the heart Images were saved to permanent archive The study was technically adequate CPT: 35211-79 This study was performed by wi, and I personally interpreted all images/videos. Based on my clinical judgement, these images were adequate and did not necessitate further imaging. Limited lung ultrasound A focused ultrasound exam of the pleural spaces was performed to evaluate for pneumothorax, pulmonary edema, pleural effusion and/or consolidation. The ultrasound was performed with the following indications, as noted in the H&P: Dyspnea Identified structures: Right and 1 thoracic cavities were examined. Findings: Lung sliding present bilaterally no significant diffuse B-lines however there does appear to be a pleural abnormality on the left upper aspect of the chest/thoracic cavity with what appears to be air bronchograms concerning for possible pneumonia or consolidation Impression: As above concern for consolidation on the left otherwise unremarkable on ultrasound of the lung Images were saved to permanent archive The study was technically adequate CPT 42956-02 This study was performed by wi, and I personally interpreted all images/videos. Based on my clinical judgement, these images were adequate and did necessitate further imaging. Critical Care Critical Care Time Critical Care Time: No Medical Decision Making Leeroy Inquiry Pt receiving controlled substance: No Vital Signs Vital Signs: 07/20/24 08:20 07/20/24 08:31 07/20/24 09:00 Temperature 98.5 F Temperature Source Oral Pulse Rate 69 65 Pulse Rate [Right] 69 Respiratory Rate 24 19 15 Blood Pressure 118/86 121/82 Blood Pressure [Right Arm] 149/89 H Blood Pressure Mean [Right Arm] 109 02 Sat by Pulse Oximetry 97 96 95 Oxygen Delivery Method Room Air Room Air Room Air 07/20/24 10:00 Temperature Temperature Source Pulse Rate 66 Pulse Rate [Right] Respiratory Rate 14 Blood Pressure 121/77 Blood Pressure [Right Arm] Blood Pressure Mean [Right Arm] 02 Sat by Pulse Oximetry 95 Oxygen Delivery Method Room Air Lab Data Lab results reviewed: Yes I reviewed the patient's lab results. Labs: Lab Results 07/20/24 08:18: SARS-CoV-2 (PCR) Not detected, Influenza A Untype (PCR) Not detected, Influenza Type B (PCR) Not detected 07/20/24 08:25: WBC 8.2, RBC 4.37 L, Hgb 13.5 L, Hct 40.4 L, MCV 92.4, MCH 30.9, MCHC 33.4, RDW 14.5, Plt Count 192, MPV 9.7, Neut % (Auto) 65.3, Lymph % (Auto) 22.7, [place]ites[place] % (Auto) 6.4, Eos % (Auto) 3.0, Baso % (Auto) 0.4, Neut # (Auto) 5.4, Lymph # (Auto) 1.9, Whites[place] # (Auto) 0.5, Eos # (Auto) 0.3, Baso # (Auto) 0.0, D-Dimer 0.73 H, Sodium 136, Potassium 4.0, Chloride 107, Carbon Dioxide 25, Anion Gap 8.0, BUN 26 H, Creatinine 1.00, Estimated Creat Clear 106, Estimated GFR 73, Est GFR ( Amer) 88, Glucose 91, Calcium 8.8, Total Bilirubin 0.6, AST 32, ALT 36, Alkaline Phosphatase 119, Troponin I < 0.01, NT-Pro-B Natriuret Pep 109, Total Protein 6.6, Albumin 3.9, Globulin 2.7, Albumin/Globulin Ratio 1.4, HCV Ab GEM w/Rflx PCR Qn Negative, HIV Ag/Ab Combo Qual Negative 07/20/24 08:27: VBG pH 7.43 H, VBG pCO2 35.5, VBG pO2 52.6 H, VBG HCO3 22.9 L, VBG Total CO2 24.0, VBG O2 Saturation 87.7 H, VBG Base Excess -1.5, VBG Lactic Acid 1.8 07/20/24 10:23: Urine Color Yellow, Urine Appearance Clear, Urine pH 5.5, Ur Specific [place] 1.015, Urine Protein Negative, Urine Glucose (UA) Negative, Urine Ketones Negative, Urine Blood Negative, Urine Nitrate Negative, Urine Bilirubin Negative, Urine Urobilinogen 0.2, Ur Leukocyte Esterase Negative, Urine RBC None, Urine WBC Occasional, Ur Squamous Epith Cells Occasional, Urine Bacteria Trace 07/20/24 08:25 07/20/24 08:25 Response Orders (Tests/Meds): ED MEDICATIONS Discontinued Medications Generic Name Dose Route Start Last Admin Trade Name Freq PRN Reason Stop Dose Admin Iopamidol 80 ml 07/20/24 09:41 07/20/24 09:44 Iopamidol-370 (76%);100ml Bottle IV 07/20/24 09:42 70 ml ONCE ONE Administration Sodium Chloride 10 ml 07/20/24 09:41 07/20/24 09:42 Sodium Chloride 0.9% 10ml Syr (Rad Only) IV 07/20/24 09:42 10 ml ONCE ONE Administration Sodium Chloride 50 ml 07/20/24 09:41 07/20/24 09:42 0.9 % Sodium Chloride 50 Ml Vial IV 07/20/24 09:42 50 ml ONCE ONE Administration ORDERS Category Date Time Status CT angio chest PE protocol Stat Cat Scan 07/20/24 08:57 Completed Chest XR -- portable [XR chest portable] Stat Exams 07/20/24 08:27 Completed POCUS Point of Care (ER Only) Stat Exams 07/20/24 08:41 Ordered BNP [NT Pro Brain Natriuretic Pep.] Stat Lab 07/20/24 08:25 Completed CMP [Comprehensive Metabolic Panel] Stat Lab 07/20/24 08:25 Completed Complete Blood Count Auto Diff Stat Lab 07/20/24 08:25 Completed D-Dimer Stat Lab 07/20/24 08:25 Completed HIV Combo Stat Lab 07/20/24 08:25 Completed Hepatitis C Ab Qual. W/ RFX Stat Lab 07/20/24 08:25 Completed Rapid PCR Covid and Flu A/B Stat Lab 07/20/24 08:18 Completed Trop I [Troponin I] Stat Lab 07/20/24 08:25 Completed Troponin I Q3H Lab 07/20/24 11:45 Ordered Troponin I Q3H Lab 07/20/24 14:45 Ordered UA [Urinalysis and Microscopic] Stat Lab 07/20/24 10:23 Completed Venous Blood Gas Stat RT 07/20/24 08:27 Completed ECG Data Tracing #1: Attestation: I reviewed this ECG and interpreted as documented below: ECG Narrative: Ventricular rate of 70 slightly prolonged QRS at 127 no acute ischemic changes noted there is left axis deviation and evidence of LVH no significant conduction abnormalities otherwise noted MDM Narrative Medical Decision Narrative: Patient with above history and physical largely unremarkable from a physical exam standpoint other than some lower extremity edema concerning for possible heart failure. Limited ultrasound of his heart was unremarkable however he does have concern for consolidation on the left side of his chest wall which prompted a CT scan to be ordered concern for possible pneumonia malignancy pulmonary embolism etc. Other things on the differential would include COPD exacerbation bronchitis etc. Will reassess shortly after this initial workup is complete. CT scan performed which I personally interpreted shows no evidence of any acute cardiopulmonary emergency. Radiology read consistent with this as well. Labs unremarkable reassessment patient appears very well clinically. Does have some cough and some mild wheezing he has a known history of asthma has been using steroids and his nebulizer at home. He is also been prescribed Levaquin I told him to continue these have added to cough medicines on of this. I do suspect he may have some underlying cardiac pathology as well given the fact that he has had exertional dyspnea lower extremity edema have advised that he follow-up with cardiology as well and he was discharged in a stable condition.
[2024-07-20 09:02] LABS: D-Dimer 0.73 ug/mL (0.0-0.5)
[2024-07-20 09:08] LABS: NT Pro Brain Natriuretic Pep. 109 pg/mL (0-450)
[2024-07-20 09:12] LABS: Troponin I < 0.01 ng/ml (0.00-0.034)
[2024-07-20 09:39] LABS: HIV Combo NEGATIVE (Negative)
[2024-07-20] MEDS: SODIUM CHLORIDE 0.9% 10ML SYR (RAD ONLY) 10 ML IV (09:42)
[2024-07-20] MEDS: 0.9 % SODIUM CHLORIDE 50 ML VIAL IV (09:42)
[2024-07-20] MEDS: IOPAMIDOL-370 (76%);100ML BOTTLE 80 ML IV (09:44)
[2024-07-20 09:47] LABS: Hepatitis C Ab Qual. W/ RFX NEGATIVE (Negative)
[2024-07-20 10:00] VITALS: BP 121/77; PULSE 66; RESP 14; O2SAT 95
[2024-07-20 10:28] LABS: Microscopic, Urine URINE MICROSCOPIC (MICROSCOPIC)
[2024-07-20 10:33] LABS: Appearance,Urine CLEAR (Clear); Bilirubin,Urine Negative (Negative); Blood, Urine Negative (Negative); Color,Urine YELLOW (Yellow); Glucose,Urine (UA) Negative (Negative); Ketones,Urine Negative (Negative); Leukocyte Esterase,Urine Negative (Negative); Nitrate,Urine Negative (Negative); PH,Urine 5.5 (5.0-8.5); Protein,Urine Negative (Negative); Specific Gravity, Urine 1.015 (1.005-1.030); Urobilinogen,Urine 0.2 EU/dl (0.2)
[2024-07-20 10:39] LABS: Bacteria,Urine Trace /lpf; Squamous Epithelial Cell,Urine Occasional #/hpf (0-5); WBC,Urine Occasional #/hpf (0-3)
[2024-07-20 10:49] VITALS: BP 114/79; PULSE 72; RESP 20; TEMP 36.8; O2SAT 94
== END 2024-07-20 10:51 | disposition home or self-care (01) ==
PROVIDERS: Emergency Provider Student in an Organized Health Care Education/Training Program; PCP Internal Medicine
DX: J20.9 Acute bronchitis, unspecified (principal); R06.02 Shortness of breath; R60.0 Localized edema; I10 Essential (primary) hypertension; Z95.0 Presence of cardiac pacemaker; Z87.891 Personal history of nicotine dependence; Z11.59 Encounter for screening for other viral diseases; Z11.4 Encounter for screening for human immunodeficiency virus [HIV]
CPT/HCPCS: 71045; 71275; 80053; 81001; 82803; 83880; 84484; 85025; 85378; 86803; 87389; 87636; 93005; 99285; Q9967

== ENCOUNTER 2024-10-02 14:15 | Outpatient (CLI) | payer MEDICARE, MEDICAID, SELFPAY ==
[2024-10-02 19:10] LABS: Anion Gap 12.4 mEq/L (5-15); Blood Urea Nitrogen 25 mg/dl (9-20); Calcium 9.6 mg/dl (8.4-10.2); Carbon Dioxide 24 mmol/L (22.0-30.0); Chloride 108 mmol/L (98-107); Creatinine,Serum 1.00 mg/dl (0.66-1.25); Estimated Glomerular Filt Rate 73 ml/min (>60); GFR (African American) 88 ML/MIN (>60); Glucose 84 mg/dl (74-100); Potassium 4.4 mmoL/L (3.5-5.1); Sodium 140 mmol/L (136-145)
== END 2024-10-02 23:59 | disposition home or self-care (01) ==
LOC: LAB.DROPOF 10-03 13:53
PROVIDERS: PCP Internal Medicine; Visit Provider Internal Medicine
DX: N40.1 Benign prostatic hyperplasia with lower urinary tract symptoms (principal); N13.8 Other obstructive and reflux uropathy; Z12.5 Encounter for screening for malignant neoplasm of prostate; I10 Essential (primary) hypertension
CPT/HCPCS: 80048; G0103

== ENCOUNTER 2025-02-09 09:08 | Outpatient (CLI) | payer MEDICARE, MEDICAID, SELFPAY ==
--- NOTE | 2025-02-09 09:10 | XR_ITS ---
FINAL REPORT CLINICAL HISTORY: left shoulder pain FINDINGS: LEFT SHOULDER Two views were obtained. There is no fracture or dislocation. There is advanced glenohumeral joint space narrowing with subchondral sclerosis and osteophyte formation. The AC joint appears intact. No soft tissue abnormality is identified. IMPRESSION: Advanced changes of osteoarthritis. Reviewed, Interpreted and Dictated by Fredi Blair MD Transcribed by Rae Barber Authenticated and [facility]
--- NOTE | 2025-02-09 09:10 | XR_ITS ---
FINAL REPORT CLINICAL HISTORY: right shoulder pain FINDINGS: RIGHT SHOULDER Two views were obtained. There is no fracture or dislocation. There is advanced glenohumeral joint space narrowing. There is subchondral sclerosis and osteophyte formation. There are mild hypertrophic changes at the AC joint. No soft tissue abnormality is identified. IMPRESSION: Advanced changes of osteoarthritis of the glenohumeral joint. Reviewed, Interpreted and Dictated by Fredi Blair MD Transcribed by Rae Barber Authenticated and [facility]
== END 2025-02-09 23:59 | disposition home or self-care (01) ==
LOC: RAD 09:09
PROVIDERS: PCP Internal Medicine; Visit Provider Physician Assistant Surgical
DX: M19.012 Primary osteoarthritis, left shoulder (principal); M19.011 Primary osteoarthritis, right shoulder
CPT/HCPCS: 73030